=== PATIENT | male | born 1985 | race Hispanic/Latino ===

== ENCOUNTER 2019-04-24 07:21 | Inpatient (IN) ==
[2019-04-24] MEDS ORDERED: NS 1,000 ML IV ONE (07:27)
[2019-04-24] MEDS ORDERED: ANTIVERT PO ONE (07:27)
[2019-04-24] MEDS ORDERED: ZOFRAN IV ONE (07:28)
--- NOTE | 2019-04-24 07:40 | EKG Report ---
Test Performed on : 04/24/2019 07:41:09 AM Test Reason : Stroke like symptoms Blood Pressure : / mmHG Vent. Rate : 104 BPM Atrial Rate : 104 BPM P-R Int : 126 ms QRS Dur : 082 ms QT Int : 364 ms P-R-T Axes : 036 -27 079 degrees QTc Int : 478 ms Sinus tachycardia. Septal infarct , age undetermined Abnormal ECG No previous ECGs available Unconfirmed Result
--- NOTE | 2019-04-24 07:43 | Diag Imaging Result Doc PS360 ---
EXAM: CHEST-PORTABLE INDICATION: syncope. Chest pain TECHNIQUE: One view COMPARISON: None. FINDINGS: There are diffuse interstitial and airspace opacities bilaterally that probably represent pulmonary edema. There are bilateral small pleural effusions. No pneumothorax is identified. There is pulmonary venous congestion and cardiomegaly. IMPRESSION: Bilateral interstitial and airspace opacities likely representing pulmonary edema. Electronically signed by Benitez Maier 04/24/2019 7:41 AM
[2019-04-24] MEDS ORDERED: MORPHINE IV ONE ×2 (08:02→10:45)
[2019-04-24] MEDS ORDERED: TORADOL IV ONE (08:02)
[2019-04-24 08:18] LABS: BASO# 0.01 X1000 (0.0-0.2); BASO% 0.1 % (0.0-0.8); HEMATOCRIT 38.4 % (42.0-52.0); HEMOGLOBIN 12.7 g/dL (14.0-18.0); IMM GRAN# 0.02 X1000 (0.0-0.04); IMM GRAN% 0.3 % (0.0-0.5); LYMPH# 0.52 X1000 (1.2-3.4); LYMPH% 7.5 % (20.5-51.1); MCH 28.5 PG (27-31); MCHC 33.1 g/dL (33-37); MCV 86.1 FL (81-99); MONO# 0.37 X1000 (0.11-0.59); MONO% 5.3 % (1.7-9.3); MPV 10.8 FL (7.4-10.4); NEUT% 86.8 % (42.2-75.2); PLT 346 X1000 (130-400); RBC 4.46 XMIL (4.7-6.1); RDW 13.3 % (11.5-14.5); WBC 6.92 X1000 (4.8-10.8)
[2019-04-24 08:20] LABS: INR 0.91; PROTIME 12.3 Seconds (11.0-16.0)
[2019-04-24 08:22] LABS: PTT 31.4 Seconds (22.3-41.8)
--- NOTE | 2019-04-24 08:39 | Diag Imaging Result Doc PS360 ---
CT HEAD/C-SPINE W/O CONTRAST - 04/24/2019 INDICATION: syncope COMPARISON: None FINDINGS: Head CT: The ventricles and sulci are normal in size and contour. No intracranial mass or hemorrhage. The skull is intact. The sinuses, mastoids, and middle ears are clear. Cervical spine: Alignment is anatomic. Vertebral body heights and intervertebral disc spaces are preserved. Neural foramen are patent. Soft tissues are clear. IMPRESSION: Negative exam. This exam was performed using automated exposure control, adjustment of mA or kV according to patient size, and/or use of iterative reconstruction technique Electronically signed by Tico Birch 04/24/2019 8:36 AM
--- NOTE | 2019-04-24 08:40 | Diag Imaging Result Doc PS360 ---
CT MAXILLOFACIAL(SINUS) W/O CO - 04/24/2019 INDICATION: fall, facial injury TECHNIQUE: COMPARISON: None FINDINGS: The facial bones are intact and normally mineralized. Soft tissues are clear. There are some mucosal retention cyst in the left maxillary sinus. No sinusitis. IMPRESSION: Negative exam. Electronically signed by Tico Birch 04/24/2019 8:38 AM
[2019-04-24 09:11] LABS: AGAP 10; ALB/GLOB RATIO 1.1; ALBUMIN 2.5 g/dL (3.5-5.0); ALKALINE PHOSPHATASE 151 U/L (32-122); BUN 39 mg/dL (8-22); CALCIUM 8.2 mg/dL (8.8-10.2); CHLORIDE 103 mmol/L (98-107); COSMO 283; CREATININE 1.8 mg/dL (0.7-1.2); ESTIMATED GFR 43; GOT 35 U/L (10-34); GPT 27 U/L (10-44); POTASSIUM 4.4 mmol/L (3.5-5.1); SODIUM 139 mmol/L (136-145); TCO2 26 mmol/L (25-35); TOTAL BILIRUBIN 0.23 mg/dL (0.20-1.00); TOTAL PROTEIN 4.7 g/dL (6.3-8.3)
[2019-04-24 09:23] LABS: ACETONE SERUM NEGATIVE (NEGATIVE); CK PROFILE 299 U/L (24-204)
[2019-04-24 09:37] LABS: GLUCOSE 36 mg/dL (70-104)
[2019-04-24 09:40] LABS: CK INDEX 6.6 (0.0-2.5); CK-MB 19.74 ng/mL (0.0-5.0)
[2019-04-24] MEDS ORDERED: D50W SYRINGE IV ONE ×3 (09:55→12:32)
[2019-04-24] MEDS ORDERED: LASIX IV ONE (10:45)
[2019-04-24] MEDS ORDERED: ASPIRIN PO ONE (10:45)
[2019-04-24] MEDS ORDERED: NITROGLYCERIN TOP ONE (10:45)
[2019-04-24 10:58] LABS: URINE SOURCE CLEAN CATCH
[2019-04-24 11:04] LABS: BILIRUBIN URINE NEGATIVE (NEGATIVE); BLOOD URINE SMALL (NEGATIVE); COLOR STRAW; GLUCOSE URINE NEGATIVE (NEGATIVE); KETONE URINE NEGATIVE (NEGATIVE); LEUKOCYTES URINE NEGATIVE (NEGATIVE); NITRITE URINE NEGATIVE (NEGATIVE); PROTEIN URINE 300 mg/dL (NEGATIVE); SP GRAVITY URINE 1.009; TURBIDITY URINE CLEAR (CLEAR); UR EPITHELIAL CELLS <10 /HPF (<10); URINE BACTERIA NEGATIVE /HPF; URINE RBC TNTC /HPF (<10); URINE WBC <10 /HPF (<10); UROBILINOGEN URINE NORMAL (NORMAL)
[2019-04-24] MEDS ORDERED: D5 NS 1,000 ML IV ONE (11:05)
[2019-04-24 11:31] LABS: UR AMPHETAMINES MT NONE DETECTED (NONE DETECT); UR BARBITUATES MT NONE DETECTED (NONE DETECT); UR BENZODIAZ MT NONE DETECTED (NONE DETECT); UR CANNABIS MEDTOX NONE DETECTED (NONE DETECT); UR COCAINE MT NONE DETECTED (NONE DETECT); UR METHADONE MEDTOX NONE DETECTED (NONE DETECT); UR OPIATES MT NONE DETECTED (NONE DETECT); UR OXYCODONE MEDTOX NONE DETECTED (NONE DETECT); UR PCP MEDTOX NONE DETECTED (NONE DETECT)
--- NOTE | 2019-04-24 12:07 | PROVIDER DOCUMENTATION ---
This chart was entered by Ekaterina Sinclair Scribe, acting as scribe for Jose Corona MD. HPI-Syncope/Dizziness - General Chief Complaint: Syncope Stated Complaint: cp Time Seen by Provider: 04/24/19 07:23 Source: patient Allergies/Adverse Reactions: Patient Allergies Allergy/AdvReac Type Severity Reaction Status Date / Time No Known Allergies Allergy Verified 04/24/19 08:04 Home Medications: Home Medication List Medication Instructions Recorded Confirmed Last Taken Type NK [No Home Medications] 04/24/19 04/24/19 Unknown History - History of Present Illness-Syncope/Dizzy Nature of Presenting Problem: Patient is a 34 year old male who presents to the ED via EMS after having a syncopal episode. States having a syncopal episode this morning. Reports having chest pain, dizziness, and weakness intermittently for the last week. Prior Episodes: reports: single episode today Onset/Duration: reports: this morning Timing: reports: improving Symptoms prior to episode: reports: chest pain, other (dizziness and weakness) Context: reports: lost consciousness Loss of Consciousness: unsure Recently Seen Here or By Another Healthcare Provider: Yes Review of Systems - Adult - REVIEW OF SYSTEMS - ADULT Constitutional: reports: no symptoms reported. denies: chills, fever Eyes: reports: no symptoms reported Ears, Nose, Mouth & Throat: reports: no symptoms reported Cardiovascular: reports: chest pain. denies: irregular heart rate, palpitations Respiratory: reports: no symptoms reported Gastrointestinal: reports: no symptoms reported Genitourinary: reports: no symptoms reported Musculoskeletal: reports: see HPI, muscle weakness. denies: back pain, neck pain Integumentary: reports: no symptoms reported Neurological: reports: see HPI, dizziness/vertigo (dizziness), syncope. denies: headache/migraines Psychiatric: reports: no symptoms reported Endocrine: reports: no symptoms reported Hematologic/Lymphatic: reports: no symptoms reported Allergic/Immunologic: reports: no symptoms reported All Other Systems: Reviewed and Negative Past History - Adult - PAST MEDICAL HISTORY-ADULT Review of Records: reports: Old Records Reviewed, Nursing Assessment Review, Medications Reviewed, Social history reviewed & non-contributory. Major Childhood Illnesses: reports: denies history Cardiovascular: reports: denies history Respiratory: reports: denies history Gastrointestinal: reports: denies history Obstetrical/Gynecological: reports: denies history Genitourinary: reports: denies history Musculoskeletal: reports: denies history Neurological: reports: denies history Endocrine/Immune: reports: Diabetes Other Conditions: reports: denies history - PRIOR SURGERIES/PROCEDURES Surgical/Procedure History: reports: reviewed, not pertinent - IMMUNIZATION STATUS Childhood Immunizations: See Nurse Assessment Flu Vaccine: See Nurse Assessment - FAMILY HISTORY Family History: reviewed, not pertinent - SOCIAL HISTORY Smoking: denies Substance Use: denies Physical Exam-General - PHYSICAL EXAM-ADULT Initial Vital Signs Reviewed: Yes - CONSTITUTIONAL General Appearance: alert, no apparent distress, anxious. negative: lethargic - HEAD, EARS, NOSE, MOUTH & THROAT HENMT: moist mucous membranes, other (laceration to bridge of nose). negative: angioedema - RESPIRATORY Respiratory: chest non-tender, lungs clear, normal breath sounds. negative: rales, stridor, wheezing - CARDIOVASCULAR Cardiovascular: normal peripheral pulses, regular rate, rhythm. negative: tachycardia - GASTROINTESTINAL (ABDOMEN) Abdominal Exam: normal bowel sounds, non tender, soft. negative: guarding, r ebound - MUSCULOSKELETAL Extremity: normal inspection. negative: deformity, erythema - SKIN Integumentary: normal color, diaphoresis, laceration(s) (bridge of nose). nega tive: pallor - NEUROLOGIC Neurologic: grossly normal. negative: aphasia, facial droop - PSYCHIATRIC Psych/Mental Status: anxious. negative: paranoid, tearful Progress - PLAN OF CARE/RESULTS Progress/Plan/Lab Results: Vital Signs - 8 hr 04/24/19 07:34 04/24/19 08:53 04/24/19 11:03 Temperature 97.6 F 98 F Pulse Rate 105 H 96 H 105 H Respiratory Rate 16 16 20 Blood Pressure 175/124 170/119 183/121 O2 Sat by Pulse Oximetry 100 98 98 04/24/19 08:00 Influenza Screen - Final Nasopharyngeal Laboratory Results - last 24 hr 04/24/19 04/24/19 04/24/19 07:50 07:50 07:50 WBC 6.92 RBC 4.46 L Hgb 12.7 L Hct 38.4 L MCV 86.1 MCH 28.5 MCHC 33.1 RDW Std Deviation 13.3 Plt Count 346 MPV 10.8 H Immature Gran % (Auto) 0.3 Neut % (Auto) 86.8 H Lymph % (Auto) 7.5 L Gr[place]gs % (Auto) 5.3 Eos % (Auto) 0.0 Baso % (Auto) 0.1 Immature Gran # (Auto) 0.02 Neut # (Auto) 6.00 Lymph # (Auto) 0.52 L [place]gs # (Auto) 0.37 Eos # (Auto) 0.00 Baso # (Auto) 0.01 PT 12.3 INR 0.91 PTT (Actin FS) 31.4 Sodium Potassium Chloride Carbon Dioxide Anion Gap BUN Creatinine Estimated GFR/1.73 m2 BUN/Creatinine Ratio Glucose POC Glucose Calculated Osmolality Calcium Total Bilirubin AST ALT Alkaline Phosphatase Creatine Kinase Creatine Kinase Index CK-MB (CK-2) Troponin T Gul-W-Eiymdcvdijb Pept Total Protein Albumin Globulin Albumin/Globulin Ratio Plasma Lactate 1.2 Urine Source Urine Color Urine Turbidity Urine pH Ur Specific Brinklow Urine Protein Ur Glucose (Stick) Ur Ketones (Stick) Urine Blood Urine Nitrite Urine Bilirubin Urobilinogen Dipstick Urine Leukocytes Urine WBC (Auto) Urine RBC (Auto) U Epithel Cells (Auto) Urine Bacteria (Auto) Urine Opiates Screen Ur Oxycodone Screen Urine Methadone Screen Ur Barbiturates Screen Ur Phencyclidine Scrn Ur Amphetamines Screen U Benzodiazepines Scrn Urine Cocaine Screen U Cannabinoids Screen Acetone Level 04/24/19 04/24/19 04/24/19 08:36 08:38 08:48 WBC RBC Hgb Hct MCV MCH MCHC RDW Std Deviation Plt Count MPV Immature Gran % (Auto) Neut % (Auto) Lymph % (Auto) Griggs % (Auto) Eos % (Auto) Baso % (Auto) Immature Gran # (Auto) Neut # (Auto) Lymph # (Auto) Griggs # (Auto) Eos # (Auto) Baso # (Auto) PT INR PTT (Actin FS) Sodium 139 Potassium 4.4 Chloride 103 Carbon Dioxide 26 Anion Gap 10 BUN 39 H Creatinine 1.8 H Estimated GFR/1.73 m2 43 BUN/Creatinine Ratio 22 Glucose 36 L* POC Glucose 34 L 31 L Calculated Osmolality 283 Calcium 8.2 L Total Bilirubin 0.23 AST 35 H ALT 27 Alkaline Phosphatase 151 H Creatine Kinase 299 H Creatine Kinase Index 6.6 H CK-MB (CK-2) 19.74 H Troponin T Qlh-C-Qhdthcdisku Pept Total Protein 4.7 L Albumin 2.5 L Globulin 2.2 Albumin/Globulin Ratio 1.1 Plasma Lactate Urine Source Urine Color Urine Turbidity Urine pH Ur Specific Brinklow Urine Protein Ur Glucose (Stick) Ur Ketones (Stick) Urine Blood Urine Nitrite Urine Bilirubin Urobilinogen Dipstick Urine Leukocytes Urine WBC (Auto) Urine RBC (Auto) U Epithel Cells (Auto) Urine Bacteria (Auto) Urine Opiates Screen Ur Oxycodone Screen Urine Methadone Screen Ur Barbiturates Screen Ur Phencyclidine Scrn Ur Amphetamines Screen U Benzodiazepines Scrn Urine Cocaine Screen U Cannabinoids Screen Acetone Level NEGATIVE 04/24/19 04/24/19 04/24/19 08:48 08:48 09:48 WBC RBC Hgb Hct MCV MCH MCHC RDW Std Deviation Plt Count MPV Immature Gran % (Auto) Neut % (Auto) Lymph % (Auto) Griggs % (Auto) Eos % (Auto) Baso % (Auto) Immature Gran # (Auto) Neut # (Auto) Lymph # (Auto) Griggs # (Auto) Eos # (Auto) Baso # (Auto) PT INR PTT (Actin FS) Sodium Potassium Chloride Carbon Dioxide Anion Gap BUN Creatinine Estimated GFR/1.73 m2 BUN/Creatinine Ratio Glucose POC Glucose 35 L Calculated Osmolality Calcium Total Bilirubin AST ALT Alkaline Phosphatase Creatine Kinase Creatine Kinase Index CK-MB (CK-2) Troponin T 0.038 Dfu-N-Yfydabqtkpu Pept 04357 H Total Protein Albumin Globulin Albumin/Globulin Ratio Plasma Lactate Urine Source Urine Color Urine Turbidity Urine pH Ur Specific [place]ink[place] Urine Protein Ur Glucose (Stick) Ur Ketones (Stick) Urine Blood Urine Nitrite Urine Bilirubin Urobilinogen Dipstick Urine Leukocytes Urine WBC (Auto) Urine RBC (Auto) U Epithel Cells (Auto) Urine Bacteria (Auto) Urine Opiates Screen Ur Oxycodone Screen Urine Methadone Screen Ur Barbiturates Screen Ur Phencyclidine Scrn Ur Amphetamines Screen U Benzodiazepines Scrn Urine Cocaine Screen U Cannabinoids Screen Acetone Level 04/24/19 04/24/19 04/24/19 10:10 10:10 11:28 WBC RBC Hgb Hct MCV MCH MCHC RDW Std Deviation Plt Count MPV Immature Gran % (Auto) Neut % (Auto) Lymph % (Auto) Griggs % (Auto) Eos % (Auto) Baso % (Auto) Immature Gran # (Auto) Neut # (Auto) Lymph # (Auto) Griggs # (Auto) Eos # (Auto) Baso # (Auto) PT INR PTT (Actin FS) Sodium Potassium Chloride Carbon Dioxide Anion Gap BUN Creatinine Estimated GFR/1.73 m2 BUN/Creatinine Ratio Glucose POC Glucose Calculated Osmolality Calcium Total Bilirubin AST ALT Alkaline Phosphatase Creatine Kinase Creatine Kinase Index CK-MB (CK-2) Troponin T 0.035 Qkn-U-Kfydwzoovmb Pept Total Protein Albumin Globulin Albumin/Globulin Ratio Plasma Lactate Urine Source CLEAN CATCH Urine Color STRAW Urine Turbidity CLEAR Urine pH 7.0 Ur Specific Brinklow 1.009 Urine Protein 300 A Ur Glucose (Stick) NEGATIVE Ur Ketones (Stick) NEGATIVE Urine Blood SMALL A Urine Nitrite NEGATIVE Urine Bilirubin NEGATIVE Urobilinogen Dipstick NORMAL Urine Leukocytes NEGATIVE Urine WBC (Auto) <10 Urine RBC (Auto) TNTC A U Epithel Cells (Auto) <10 Urine Bacteria (Auto) NEGATIVE Urine Opiates Screen NONE DETECTED Ur Oxycodone Screen NONE DETECTED Urine Methadone Screen NONE DETECTED Ur Barbiturates Screen NONE DETECTED Ur Phencyclidine Scrn NONE DETECTED Ur Amphetamines Screen NONE DETECTED U Benzodiazepines Scrn NONE DETECTED Urine Cocaine Screen NONE DETECTED U Cannabinoids Screen NONE DETECTED Acetone Level Orders Category Date Time Status Cardiac Monitoring DIRECTED Care 04/24/19 07:24 Active Finger Stick Blood Sugar (ED) DIRECTED Care 04/24/19 07:24 Active Finger Stick Blood Sugar (ED) DIRECTED Care 04/24/19 10:44 Completed Nursing- Obtain EKG once Care 04/24/19 10:42 Active Oxygen Therapy- ED Nursing DIRECTED Care 04/24/19 07:24 Active PO Fluid Challenge DIRECTED Care 04/24/19 07:29 Active Saline Loc NOW Care 04/24/19 07:24 Active Diabetic Diet Diet 04/24/19 09:56 Completed Diabetic Diet Diet 04/24/19 09:59 Active CHEST-PORTABLE [RAD] Stat Exams 04/24/19 07:[address] HEAD/C-SPINE W/O CONTRAST [CT] Stat Exams 04/24/19 07:[address] MAXILLOFACIAL(SINUS) W/O CO [CT] Stat Exams 04/24/19 07:26 Completed ACETONE SERUM [CHEM] Stat Lab 04/24/19 08:48 Completed BLOOD CULTURE [BLDCUL] Stat Lab 04/24/19 08:38 Results CBC WITH ELECTRONIC DIFF [HEME] Stat Lab 04/24/19 07:50 Completed CK PROFILE [SP CHEM] Stat Lab 04/24/19 08:48 Completed COMPREHENSIVE METABOLIC PANEL [CHEM] Stat Lab 04/24/19 08:48 Completed INFLUENZA SCREEN A/B Stat Lab 04/24/19 08:00 Completed LACTATE, PLASMA [CHEM] Stat Lab 04/24/19 07:50 Completed PRO B-NATRIURETIC PEPTIDE Stat Lab 04/24/19 08:48 Completed PROTIME WITH INR [COAG] Stat Lab 04/24/19 07:50 Completed PTT [COAG] Stat Lab 04/24/19 07:50 Completed TROPONIN T Stat Lab 04/24/19 08:48 Completed TROPONIN T Stat Lab 04/24/19 11:28 Completed URINALYSIS W/POSS RFLX CULT [URINALYSIS] Stat Lab 04/24/19 10:10 Completed URINE DRUG SCREEN MEDTOX Stat Lab 04/24/19 10:10 Completed 0.9% Sodium Chloride Inj [Ns] 1,000 ml Med 04/24/19 07:27 Discontinued IV 999 mls/hr Aspirin Med 04/24/19 10:45 Discontinued 325 mg PO NOW ONE Dextrose 5%-0.9% NaCl Inj [D5 Ns] 1,000 ml Med 04/24/19 11:05 Active IV 50 mls/hr Dextrose 50% Syringe [D50w Syringe] Med 04/24/19 09:55 Discontinued 50 ml IV NOW ONE Dextrose 50% Syringe [D50w Syringe] Med 04/24/19 09:56 Discontinued 50 ml IV NOW ONE Furosemide [Lasix] Med 04/24/19 10:45 Discontinued 80 mg IV NOW ONE Ketorolac [Toradol] Med 04/24/19 08:02 Discontinued 30 mg IV NOW ONE Meclizine [Antivert] Med 04/24/19 07:27 Discontinued 50 mg PO NOW ONE Morphine Med 04/24/19 08:02 Discontinued 2 mg IV NOW ONE Morphine Med 04/24/19 10:45 Discontinued 2 mg IV NOW ONE Nitroglycerin Med 04/24/19 10:45 Discontinued 1 inch TOP NOW ONE Ondansetron [Zofran] Med 04/24/19 07:28 Discontinued 4 mg IV NOW ONE EKG [EKG] Stat Ther 04/24/19 07:24 Draft EKG [EKG] Stat Ther 04/24/19 10:42 Ordered Echo Spec/Color Doppler Routine Ther 04/24/19 10:58 Ordered Transfer/Admit Order [TRANSFER] Routine Transfer 04/24/19 11:05 Ordered Result Diagrams: 04/24/19 07:50 04/24/19 08:48 - REASSESSMENT Reassessment #1 Time Reassessed: 12:05 Status: improving (better after multiple interventions for hypoglycemia and treatment for severre CHF) - EKG 1 Time of EKG reading by physician:: 07:41 EKG Read and Signed by:: Jose Corona EKG Interpretation (*Must complete 3 of following elements*): Abnormal Rate: 104 Rhythm: sinus tachycardia [place]: normal [place] Interval: normal Comments: septal infarct, age undetermined - XRAY 1 XRAY Study: Chest Impression: See EMR Report ( EXAM: CHEST-PORTABLE INDICATION: syncope. Chest pain TECHNIQUE: One view COMPARISON: None. FINDINGS: There are diffuse interstitial and airspace opacities bilaterally that probably represent pulmonary edema. There are bilateral small pleural effusions. No pneumothorax is identified. There is pulmonary venous congestion and cardiomegaly. IMPRESSION: Bilateral interstitial and airspace opacities likely representing pulmonary edema. Electronically signed by Benitez Maier 04/24/2019 7:41 AM 04/24/19 0741 Interpreting Physician: Benitez Maier MD Dictated Date/Time: 04/24/19 0740 cc: Jose Corona MD;) - CT/MRI 1 CT Study: Cervical Spine, Head Impression: See EMR Report ( CT HEAD/C-SPINE W/O CONTRAST - 04/24/2019 INDICATION: syncope COMPARISON: None FINDINGS: Head CT: The ventricles and sulci are normal in size and contour. No intracranial mass or hemorrhage. The skull is intact. The sinuses, mastoids, and middle ears are clear. Cervical spine: Alignment is anatomic. Vertebral body heights and intervertebral disc spaces are preserved. Neural foramen are patent. Soft tissues are clear. IMPRESSION: Negative exam. This exam was performed using automated exposure control, adjustment of mA or kV according to patient size, and/or use of iterative reconstruction technique Electronically signed by Tico Birch 04/24/2019 8:36 AM 04/24/19 0836 Interpreting Physician: Tico Birch MD Dictated Date/Time: 04/24/19 0871 cc: Jose Corona MD;) 2 CT Study: Sinuses Impression: See EMR Report ( CT MAXILLOFACIAL(SINUS) W/O CO - 04/24/2019 I NDICATION: fall, facial injury TECHNIQUE: COMPARISON: None FINDINGS: The facial bones are intact and normally mineralized. Soft tissues are clear. There are some mucosal retention cyst in the left maxillary sinus. No sinusitis. IMPRESSION: Negative exam. Electronically signed by Tico Birch 04/24/2019 8:38 AM 04/24/19 0838 Interpreting Physician: Tico Birch MD Dictated Date/Time: 04/24/19 0836 cc: Jose Corona MD;) - CONSULTS/PCP/HOSPITALIST Notification #1 *Consult/PCP/Hospitalist*: EMILE Gregory for Hospitalist Time Discussed: 10:50 Reason/Comments: Dr. Corona consulted with Bri about patient. Consult Disposition: Will see in ED, Admit Departure - Departure Date of Disposition Decision: 04/24/19 Time of Disposition Decision: 10:50 DIAGNOSIS: Substernal precordial chest pain, Syncope and collapse, Hypoglycemic episode in patient with diabetes mellitus, New onset of congestive heart failure Pulmonary edema Qualifiers: Chronicity: acute Qualified Code(s): J81.0 - Acute pulmonary edema Disposition: ADMITTED INPATIENT 09 Certified Medical Emergency: Emergent Condition: Serious Referrals and Follow-Ups: None,PCP [Primary Care Provider] - - Critical Care Note This patient required my direct & personal management of CC.: Yes Total Time (mins): 50 Critical Care Statement: This patient required my direct personal management to treat or rule out processes, the absence of which, could potentiallly result in sudden, clinically significant life or limb threatening deterioration. Attestation - Physician/ MANSI Attestation Patient care was provided by Advanced Practice Provider:: No The physician spent face to face time with patient:: Yes Advanced Practice Provider documentation review:: Supervising physician onsite and consulted in the evaluation and care of this patient. The physician did have a face to face encounter with the patient. This chart was documented by the indicated scribe, (Ekaterina Sinclair Scribe) and accurately reflects the services I performed and decisions made by me, Jose Corona MD, as attested by the provider's signature.
[2019-04-24] MEDS ORDERED: D10W 1,000 ML IV SCH (15:15)
[2019-04-24] MEDS ORDERED: GLUCAGON SUBQ ONE (15:49)
[2019-04-24] MEDS ORDERED: COREG PO ONE (15:55)
[2019-04-24] MEDS ORDERED: COZAAR PO ONE (15:55)
--- NOTE | 2019-04-24 15:56 | ECHO REPORT ---
ORDER DATE: 04/24/2019 INDICATIONS: CHF. FINDINGS: 1. Right atrium appears normal in size. 2. Mild tricuspid regurgitation. 3. Normal RV size and systolic function. 4. Trace pulmonic insufficiency. 5. The left atrium is moderately enlarged with a volume index of 38. 6. No mitral valve prolapse. Mild mitral regurgitation. No mitral stenosis. 7. The left ventricle appears to be somewhat dilated with an end-diastolic dimension of 5.1. There is mild left ventricular hypertrophy with interventricular septal wall thickness 1.3 cm. Severe reduction in LV systolic function with an estimated EF in the 15 to 20 percent range. There is severe global hypokinesis. 8. Aortic valve opens well. No evidence of stenosis or insufficiency. 9. Aorta appears normal in visualized segments. 10. There is a small circumferential pericardial effusion with no clear evidence of tamponade-type physiology. Pleural effusion is noted as well. cc: Sai Roman MD
[2019-04-24] MEDS ORDERED: STERILE WATER INJ. ONE (15:59)
--- NOTE | 2019-04-24 16:12 | Diag Imaging Result Doc PS360 ---
CT THORAX W/O CONTRAST - 04/24/2019 INDICATION: SOB with bilateral interstitial infiltrates COMPARISON: None FINDINGS: There is cardiomegaly with a pronounced pericardial effusion. There is moderate body wall edema. There is a small right and moderate left pleural effusion. There is some hazy interstitial pulmonary edema diffusely and centrally bilaterally. Upper abdominal images appear normal. There are numerous old healing rib deformities on the left side. These are clearly chronic. IMPRESSION: 1. Significant pericardial effusion. 2. Small right and moderate left pleural effusions of simple fluid density. 3. Significant central infiltrates compatible with pulmonary edema. 4. Healing left-sided rib fractures. This exam was performed using automated exposure control, adjustment of mA or kV according to patient size, and/or use of iterative reconstruction technique Electronically signed by Tico Birch 04/24/2019 4:09 PM
[2019-04-24] MEDS: LASIX IV SCH ×2 (16:29→23:58)
[2019-04-24] MEDS: MAXIPIME 1 GM in NS 50 ML IV SCH (16:29)
[2019-04-24 16:31] LABS: HEMOGLOBIN A1C 7.2 % (4.8-6.0)
[2019-04-24] MEDS: ZYVOX PO SCH ×2 (16:46→17:50)
[2019-04-24 17:07] LABS: IRON SATURATION 17 %; TIBC 214 ug/dL; TOTAL IRON 36 ug/dL (53-167); UNBOUND IRON 178 ug/dL (112-346)
[2019-04-24 17:17] LABS: ALB/GLOB RATIO 1.3; ALBUMIN 2.5 g/dL (3.5-5.0); DIRECT BILIRUBIN 0.1 mg/dL (0.00-0.20); TOTAL BILIRUBIN 0.21 mg/dL (0.20-1.00); TOTAL PROTEIN 4.4 g/dL (6.3-8.3)
[2019-04-24 17:24] LABS: CK INDEX 6.1 (0.0-2.5); CK-MB 15.35 ng/mL (0.0-5.0)
[2019-04-24 17:29] LABS: PREALBUMIN 22.6 mg/dL (20-40)
[2019-04-24] MEDS ORDERED: LASIX IV SCH (18:00)
--- NOTE | 2019-04-24 18:39 | HISTORY AND PHYSICAL ---
PRESENTING COMPLAINT: Cough, shortness of breath. HISTORY OF PRESENTING COMPLAINT: Mr. Hernandez is a 34-year-old [facility] gentleman who has been living in the [facility] for a long time now. He is known to be diabetic, which was diagnosed in 2005, but was off medication because he was told that it was very well under control, so he was not on any pharmacological therapy until just about a week ago. He has been started back on oral hypoglycemic agent that he does not remember. He is also hypertensive. Mr. Hernandez came this time to the emergency room because of shortness of breath. He said for the past 2 weeks he was having some cough which has been persistent, is nonproductive without any chest pain, but it is associated with shortness of breath which has been progressively getting worse to where every night he has to wake up multiple times in the middle of the night to catch his breath. He has also been sleeping more than 2 pillows lately because of shortness of breath. Alongside with that. He has also witnessed that his lower extremity and his genitalia has been getting swollen. He went to [facility] [place] and he was given some blood pressure medications, some medication for the cough and diabetes medication about a week ago. However, he said even taking those medications he continued to be symptomatic. Last night, he became so short of breath that he thought he was going to suffocate and . Apparently, he tried to sit up at the edge of his bed. He fell. He was unable to help himself up. Another friend who works at night came and saw him on the floor and tried to help him to the bed, but realizing that Mr. Hernandez did not improve he called EMS and patient was brought to the emergency room. Here in the emergency room. Initially, his vitals, blood pressure was high 175/124. His pulse of 105. Respiration 16. Temperature 97.6 degree. Patient was saturating 100% on room air. He was also found to be extremely hypoglycemic, so we were consulted to evaluate and admit. PAST MEDICAL HISTORY: Previously diagnosed of diabetes mellitus in 2005, but was told was cleared and under control, so he was not on any medication until just about 2 weeks about 1 week ago. Hypertension. 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 There is also a skin and soft tissue surgery on the right upper shoulder. FAMILY HISTORY: Unremarkable. The patient denies any diabetes or hypertension in his family. SOCIAL HISTORY: Mr. Hernandez is a 34-year-old [facility] gentleman. He said he used to smoke about 15 years ago, but since then he has not smoked. He denies alcohol use. He said he is christian man. He is not . REVIEW OF SYSTEMS: Mr. Hernandez refers that he has a fever and chills and that 1 week ago when he went to the Urgent Care, he was told that he had fever. He denies any chest pain. He denies any urinary symptoms. He denies any diarrhea or abdominal pain. PHYSICAL EXAMINATION: VITAL SIGNS: Blood pressure is 183/121, pulse of 105, respirations 20, temperature 98 degrees. GENERAL: Mr. Hernandez is a 34-year-old gentleman. He is in bed. He does not seems to be in any cardiopulmonary distress. Mucosa is pink and moist. Anicteric. Acyanotic. He looks remarkably swollen. NECK: Supple. There is positive JVD, but no carotid bruit. The trachea is midline. There is no thyromegaly. Head is normocephalic and atraumatic. There are mild bruises on the nasal bridge. CHEST: Air entry is bilaterally reduced. There is diffuse crackles in both inspiration and expiration. There is no accessory muscle use. CARDIOVASCULAR: Regular rate and rhythm. There was an S3 positive but no S4. No murmurs. The apex beat is at 5th intercostal space midclavicular line. GASTROINTESTINAL: Abdomen is soft. It is distended but nontender. Bowel sounds present. There is edema on the lateral aspect of the abdominal wall. EXTREMITIES: About 3+ pedal edema extending almost to the proximal thighs. CENTRAL NERVOUS SYSTEM: Patient is awake, alert, oriented. He is very fluent in his gambell language, Lao. He does not speak any Welsh, but moves all his extremities upon command and he does not have any focal neurological deficit. Cranial nerves 2-12 have been grossly examined and they are unremarkable. LABORATORY DATA: WBC is 6.92, hemoglobin is 12.7, platelet count of 347,000. Chemistry is also reviewed. Creatinine was about 1.8. Glucose on admission was 36. The proB 29,565. Albumin is remarkably low. Total protein is also low. IMAGING STUDIES: A chest x-ray which was done initially suggests bilateral interstitial airspace opacities likely representing pulmonary edema. Echocardiogram shows an ejection fraction of 15-20 percent. There is severe global hypokinesis. Right ventricle seems to be normal in systolic function. There is a small pericardial circumferential effusion. No clear evidence of tamponade. ASSESSMENT: Mr. Hernandez is a 34-year-old gentleman who has been having shortness of breath, cough for the past 2 weeks associated with some fever and chills, comes in with symptoms of overt fluid overload and hypoglycemia. ASSESSMENT: 1. Anasarca secondary to systolic heart failure. The patient has been started on diuretic therapy. 2. Dyspnea secondary to pulmonary edema with possible superimposed pneumonia. We will get a CT scan of the lung to have a better clear anatomy of the lungs. The patient did have fever and chills, so I think it is reasonable to cover him with antibiotics until we have the cultures and the CT scan result. 3. Severe hypertension. The patient's blood pressures have been remarkably high. I have started him on losartan and carvedilol, we will continue to titrate. 4. Systolic congestive heart failure. Ejection fraction is reported to be 15 to 20 percent with severe global hypokinesis. Unsure the etiology behind this. For now, we are going to continue with the diuresis and get Cardiology to evaluate Mr. Hernandez as well. I think once he becomes euvolemic, he would need to be investigated for coronary artery disease. 5. Diabetes mellitus. According to Mr. Hernandez, he was started on some oral hypoglycemic agent about 1 week ago. Unsure of what that was. We are going to get his A1c to have an idea what is going on. He is currently hypoglycemic anyway, so we will not will not start him on anything yet for now. 6. Hypoglycemic, most likely due to oral hypoglycemic agent. The patient has been given multiple doses of D50. At one point, he was on D10. We are going to give him a glucagon shot for now and take him off the D10 infusion since he is remarkably fluid overloaded at this point. 7. Normocytic anemia. We will do the iron studies to rule that out. 8. Hypoalbuminemia probably due to poor nutritional status. However, the patient's urinalysis also seems to suggest urine protein. We might want to do a 24-hour urine collection to have a better idea and rule out possible nephrotic syndrome from longstanding diabetes mellitus. 9. Renal failure. We will continue to follow this. We will also avoid any nephrotoxin. The patient will get 24 hour urine collection to know if there is any longstanding renal pathology. Critical time spent is 36 minutes. Mr. Hernandez will be admitted to [facility]. cc: Alex Hillman MD [facility]
[2019-04-24] MEDS: HEPARIN SUBQ SCH (20:28)
[2019-04-24] MEDS: COREG PO SCH (20:28)
[2019-04-24 20:52] LABS: CK INDEX 6.1 (0.0-2.5); CK-MB 13.64 ng/mL (0.0-5.0)
[2019-04-24] MEDS: D50W SYRINGE IV PRN (21:01)
[2019-04-25] MEDS: D50W SYRINGE IV PRN ×2 (00:41→04:42)
[2019-04-25] MEDS: MAXIPIME 1 GM in NS 50 ML IV SCH ×2 (03:22→17:35)
[2019-04-25] MEDS: ZYVOX PO SCH ×2 (05:36→17:36)
[2019-04-25] MEDS: SANDOSTATIN SUBQ SCH ×3 (06:06→21:04)
--- NOTE | 2019-04-25 07:29 | Diag Imaging Result Doc PS360 ---
CHEST-PORTABLE - 04/25/2019 INDICATION: chf COMPARISON: 04/24/2019 FINDINGS: Stable cardiomegaly. There has been overall improvement in the extensive interstitial pulmonary edema. Decrease in the small bilateral pleural effusions. IMPRESSION: Significant improvement from prior. Electronically signed by Tico Birch 04/25/2019 7:27 AM
[2019-04-25 07:34] LABS: CALCIUM 7.6 mg/dL (8.8-10.2); CREATININE 2.5 mg/dL (0.7-1.2); MAGNESIUM 2.1 mg/dL (1.5-2.7)
--- NOTE | 2019-04-25 07:34 | EKG Report ---
Test Performed on : 04/25/2019 06:38:49 AM Test Reason : CHF Blood Pressure : / mmHG Vent. Rate : 084 BPM Atrial Rate : 084 BPM P-R Int : 146 ms QRS Dur : 086 ms QT Int : 404 ms P-R-T Axes : 041 -30 167 degrees QTc Int : 477 ms Normal sinus rhythm. Left axis deviation T wave abnormality, consider lateral ischemia Prolonged QT Abnormal ECG When compared with ECG of 24-APR-2019 16:49, (Unconfirmed) Inverted T waves have replaced nonspecific T wave abnormality in Anterior leads Unconfirmed Result
[2019-04-25 07:44] LABS: CHOLESTEROL 176 mg/dL (0-200); HDL 43 mg/dL (35-55); LDL 113 mg/dL; TRIGLYCERIDES 100 mg/dL (39-160); VLDL 20 mg/dL
[2019-04-25 07:59] LABS: POTASSIUM 5.6 mmol/L (3.5-5.1)
[2019-04-25] MEDS: LASIX IV SCH ×2 (08:45→21:04)
[2019-04-25] MEDS: HEPARIN SUBQ SCH ×2 (08:45→21:04)
[2019-04-25] MEDS: COREG PO SCH ×2 (08:45→21:04)
[2019-04-25] MEDS ORDERED: COZAAR PO SCH (09:00)
[2019-04-25] MEDS ORDERED: ISORDIL PO SCH (09:00)
[2019-04-25] MEDS ORDERED: APRESOLINE PO SCH (09:00)
--- NOTE | 2019-04-25 11:26 | CARDIOLOGY CONSULTATION ---
DATE: 04/25/2019 REASON FOR CONSULTATION: Cardiology was consulted for new onset heart failure, severe LV dysfunction, diabetes. HISTORY OF PRESENT ILLNESS: The patient is Eritrean speaking. Does not speak Sierra Leonean. The history was obtained from the chart and using the interpretation services as well. A 34-year-old, [place] gentleman who has been living in the [facility] in [place] for more than 4 years. He was diagnosed to have diabetes in 2005; has been off medications, has not been taking his medications for that for a long time. He has also noted that he was told that he has high blood pressure. For the last 2 weeks he has been having increasing episodes of shortness of breath, dyspnea on exertion, grade 2 of late. Since then, this has worsened. He became orthopneic, came to the emergency room, was noted to be in anasarca, was admitted. He had been to the [facility] as well recently. When he came to the emergency room, blood pressure was 175/124. He was in pulmonary edema. He had an echocardiogram done which revealed severe LV dysfunction, ejection fraction of 15 to 20 percent. Symptomatically he has improved. REVIEW OF SYSTEMS: General: A 14-point review of system was done. GI system: There is no history of nausea, vomiting, or diarrhea. There is no history of hematemesis or melena. Central nervous system: No focal weakness to suggest a CVA, TIA. system: There is no dysuria or hematuria. PAST MEDICAL HISTORY: 1. Diabetes. 2. Hypertension. 3. Middle finger amputation. FAMILY HISTORY: Unremarkable. SOCIAL HISTORY: Used to smoke about 15 years ago. Denies alcohol or drug abuse. PHYSICAL EXAMINATION: Vital Signs: Blood pressure when he came in was 183/121; today blood pressure was 109/80. Neck: Jugular venous pressure was elevated. Cardiovascular system: First and second heart sounds were heard. There was a soft murmur. Respiratory system: Bibasilar inspiratory crepitations. Abdomen: Soft, nontender. There was no guarding or rigidity. Bowel sounds were heard. Central nervous system: Alert and oriented, was moving all 4 extremities. Extremities: Examination of extremities revealed pitting edema up to his thighs. LABORATORY EXAMINATION: WBC 6.92, hemoglobin 12.7, platelet count of 347. Creatinine 1.8 on admission. ProBNP 29,565. IMAGING STUDIES: Echocardiogram revealed ejection fraction of 15 to 20 percent. There is global hypokinesis, small pericardial effusion. No evidence of tamponade. Chest x-ray revealed bilateral interstitial disease suggestive of pulmonary edema. Chest x-ray today revealed improving pulmonary edema. LABORATORY EXAMINATION: 1. Today revealed a sodium 140, potassium 5.6, BUN 47, creatinine 2.5. Glucose was 128. 2. Serum iron level was 36. His thyroid profile on 04/24/2019 revealed 1.62, within normal range. ASSESSMENT AND PLAN: Alexis Holder is a 34-year-old, gentleman with history of hypertension, diabetes, not on any treatment, is admitted with increasing shortness of breath, became orthopneic and admitted as a severe left ventricular dysfunction, ejection fraction of 15 to 20 percent with congestive heart failure. Symptomatically he has improved. He was in anasarca. He was given intravenous Lasix and Cozaar as well for his severe congestive heart failure and there is worsening of renal function. In addition, he is known to have diabetes and hypertension, not on any medications. He is admitted with severe hypertension. RECOMMENDATIONS: 1. As far as the etiology of heart failure is concerned, he has had longstanding hypertension, diabetes not on any treatment. There is worsening of his symptoms within the last 2 weeks with severe left ventricular dysfunction. As far as the etiology of severe left ventricular dysfunction is concerned, may be viral etiology to account for this sudden worsening of his symptoms. I do not have any other echocardiogram to compare with. I am going by his history as this was a sudden worsening. Regardless, given his hypertension and diabetes, workup to rule out obstructive coronary artery disease and needs to be performed, we will plan for that once he is euvolemic. 2. He has systolic heart failure with worsening renal function and diabetes. His Cozaar has been held. Given this, we will continue with his Coreg. I will put him on and Lanoxin 0.125 mg a day, and decrease his Lasix to 40 mg twice daily. If his kidney function improves as hopefully this would, we will again retry him back on BALTAZAR inhibitors as this would be the most optimal option as far as his severe left ventricular dysfunction is concerned. 3. Renal insufficiency could also be secondary to his diabetes. His baseline creatinine was 1.8. We will follow along as far as that is concerned. 4. Diabetes. Continue with his current medications. 5. He has normocytic anemia. Iron studies revealed low iron content. 6. As far as other etiologies of his cardiomyopathy is concerned, his thyroid function was normal. Ferritin levels were not into the abnormal range. He has low iron content. Thank you for the consult. We will follow hospital course. cc: Jacky Brown MD [facility]
[2019-04-25] MEDS: LANOXIN PO SCH (13:08)
[2019-04-25] MEDS: ALBUMIN 25% IV SCH (13:08)
--- NOTE | 2019-04-25 14:22 | PROGRESS NOTE ---
DATE: 04/25/2019 SUBJECTIVE: This morning Mr. Holder refers to be doing fairly okay, denies any new complaints. He said he is feeling much better. Shortness of breath has improved. OBJECTIVE: Vital signs: Blood pressure 127/86, pulse of 83, respirations 17, temperature is 98.4 degrees. Patient is saturating 97% on room air. General: Mr. Holder is a 34-year-old gentleman. He is in bed, in no distress. Mucosa is pink and moist. Anicteric. Acyanotic. Neck: Supple. There is still positive JVD. Chest: Air entry is bilaterally reduced. There are diffuse crackles in both lungs maynard. Cardiovascular: Regular rate and rhythm. No murmurs, no rubs, no gallops. GI: Abdomen is soft, is distended. There is some edema on the lateral aspect of the abdominal wall. Extremities: 2+ pedal edema. CHIEF JUVENILE PROBATION OFFICER: Patient is awake, alert, and oriented. LABORATORY DATA: Sodium is 140, potassium is up to 5.6, chloride is 106, bicarb is 24. The patient's BUN is 47 and creatinine is 2.6. The patient's input and output: Urine output was only 350 charted overnight. IMAGING: A repeat chest x-ray this morning showed significant improvement from prior. ASSESSMENT AND PLAN: 1. Anasarca secondary to congestive heart failure with systolic dysfunction associated with hypoalbuminemia. 2. Dyspnea on presentation secondary to pulmonary edema with possible superimposed pneumonia. Patient is on diuretic therapy and antimicrobial. Chest x-ray this morning seems to suggest significant improvement. 3. Severe hypertension on presentation, improved. 4. Systolic heart failure, ejection fraction of 15-20 percent on echo with global hypokinesis. Etiology is unclear. Cardiology is on board. I think once patient attains euvolemic status, coronary artery disease needs to be ruled out. 5. Diabetes mellitus with presenting A1c of 7.2. 6. Persistent recurrent hypoglycemia, most likely due to oral hypoglycemic toxicity, unsure if the patient was on sulfonylurea as he is not able to give that history. He has been given a couple doses of D50 and glucagon. We will put him on octreotide for glucose stabilization. 7. Hypoalbuminemia, most likely due to protein-calorie malnutrition. The patient has normal cholesterol, which makes nephrotic syndrome less likely however possible. Will be pending 24urine protein level. 8. Renal failure with unremarkable urinalysis. We are getting a urine sodium and urine osmolarity. This is suspected to be a cardiorenal syndrome. We will also get an echo ultrasound of the kidneys and get Nephrology to evaluate him once we get all the investigations. Of note, the patient's creatinine worsened this morning, associated with potassium elevation, which I suspect is due to the new medication that was given, which is losartan, so this has been discontinued. cc: Alex Hillman MD [facility]
[2019-04-25 14:36] LABS: UR CREAT RANDOM 36.2 mg/dL (14-26)
[2019-04-25] MEDS ORDERED: MORPHINE IV ONE (19:34)
[2019-04-25] MEDS ORDERED: MORPHINE IV PRN (19:36)
--- NOTE | 2019-04-25 21:01 | Diag Imaging Result Doc PS360 ---
US RENAL 2 (RETROPER) COMPLETE - 04/25/2019 INDICATION: igor/arf TECHNIQUE: COMPARISON: None FINDINGS: The urinary bladder is extremely distended, measuring about 12 x 10 cm. The kidneys are normal. No hydronephrosis. No mass or cyst. The right kidney measures 10.7 x 5.7 x 4.8 cm. The left kidney measures 10 x 4.7 x 5.4 cm. IMPRESSION: Severely distended urinary bladder. Consider placing a Man catheter. Electronically signed by Tico Birch 04/25/2019 8:59 PM
[2019-04-25] MEDS: BIDIL PO SCH (21:04)
[2019-04-25 23:01] LABS: URINE SOURCE CATH
[2019-04-25 23:03] LABS: BILIRUBIN URINE NEGATIVE (NEGATIVE); BLOOD URINE NEGATIVE (NEGATIVE); COLOR YELLOW; GLUCOSE URINE 100 mg/dL (NEGATIVE); KETONE URINE NEGATIVE (NEGATIVE); LEUKOCYTES URINE NEGATIVE (NEGATIVE); NITRITE URINE NEGATIVE (NEGATIVE); PH URINE 6.5; PROTEIN URINE 300 mg/dL (NEGATIVE); TURBIDITY URINE CLEAR (CLEAR); UR EPITHELIAL CELLS <10 /HPF (<10); URINE BACTERIA NEGATIVE /HPF; URINE RBC <10 /HPF (<10); URINE WBC <10 /HPF (<10); UROBILINOGEN URINE NORMAL (NORMAL)
[2019-04-26] MEDS: SANDOSTATIN SUBQ SCH (03:04)
[2019-04-26] MEDS: MAXIPIME 1 GM in NS 50 ML IV SCH ×2 (03:04→16:18)
[2019-04-26] MEDS: ZYVOX PO SCH ×2 (05:19→17:30)
[2019-04-26 06:58] LABS: BASO# 0.14 X1000 (0.0-0.2); BASO% 1.9 % (0.0-0.8); EOS# 0.55 X1000 (0.0-0.7); EOS% 7.5 % (0.0-10.0); HEMATOCRIT 27.6 % (42.0-52.0); HEMOGLOBIN 8.9 g/dL (14.0-18.0); IMM GRAN# 0.02 X1000 (0.0-0.04); IMM GRAN% 0.3 % (0.0-0.5); LYMPH% 16.4 % (20.5-51.1); MCH 29.4 PG (27-31); MCHC 32.2 g/dL (33-37); MCV 91.1 FL (81-99); MONO# 0.61 X1000 (0.11-0.59); MONO% 8.3 % (1.7-9.3); MPV 10.8 FL (7.4-10.4); NEUT# 4.79 X1000 (1.4-6.5); NEUT% 65.6 % (42.2-75.2); PLT 308 X1000 (130-400); RBC 3.03 XMIL (4.7-6.1); RDW 13.7 % (11.5-14.5); WBC 7.31 X1000 (4.8-10.8)
[2019-04-26 07:14] LABS: ALB/GLOB RATIO 1.3; CALCIUM 8.2 mg/dL (8.8-10.2); CREATININE 2.5 mg/dL (0.7-1.2); MAGNESIUM 2.3 mg/dL (1.5-2.7); PHOSPHORUS 5.2 mg/dL (2.7-4.5); TOTAL BILIRUBIN 0.44 mg/dL (0.20-1.00); TOTAL PROTEIN 5.3 g/dL (6.3-8.3)
[2019-04-26 07:15] LABS: POTASSIUM 5.9 mmol/L (3.5-5.1)
[2019-04-26] MEDS: BIDIL PO SCH ×3 (08:09→17:30)
[2019-04-26] MEDS: LANOXIN PO SCH (08:09)
[2019-04-26] MEDS: HEPARIN SUBQ SCH ×2 (08:09→20:21)
[2019-04-26] MEDS: LASIX IV SCH ×2 (08:09→20:21)
[2019-04-26] MEDS: COREG PO SCH ×3 (08:09→20:22)
[2019-04-26] MEDS: DITROPAN PO SCH ×2 (08:40→20:21)
[2019-04-26] MEDS: ALBUMIN 25% IV SCH (09:10)
--- NOTE | 2019-04-26 09:25 | PROGRESS NOTE ---
DATE: 04/26/2019 SUBJECTIVE: This morning Mr. Holder refers to be doing a lot better. He said he does not have any more nauseation or discomfort in his abdomen. OBJECTIVE: Vital signs: Blood pressure is 173/103, pulse of 93, respiration is 18, temperature is 97.7. General: Mr. Holder is a 34-year-old gentleman. He is in bed, no distress. HEENT: Mucosa is pink and moist. Anicteric. Acyanotic. Neck: Supple. There is still positive JVD. Chest: Air entry is reduced. There is crackles in the posterior lung field in inspiration. Cardiovascular: Regular rate and rhythm. No murmurs, no rubs. GI: Abdomen is soft, distended. Some edema in the lateral aspect of the abdominal wall. Extremities: 2+ pedal edema. DIGITAL STRATEGY MANAGER: Patient is awake, alert, oriented. Follows commands. I'S AND O'S: I's and O's 9 925 urine output has been documented. The patient is currently negative balance. LABORATORY DATA: WBC is 7.39, hemoglobin is 8.9, platelet count of 308,000. Chemistry: Potassium is 5.9 BUN went up to 51, creatinine stable at 2.5, phosphorus is 5.2, magnesium is 2.3. AST and ALT are within normal range. Glucose is 140. A renal ultrasound which was done yesterday shows that the bladder was severely distended. However, the kidneys looked unremarkable. ASSESSMENT: 1. Anasarca, most likely due to congestive heart failure with systolic dysfunction associated with hypoalbuminemia. 2. Dyspnea on presentation secondary to pulmonary edema from congestive heart failure. 3. Severe hypertension on presentation improving. 4. Systolic heart failure ejection fraction of 15% to 20% on echo with global hypokinesis. Cardiology is on board. Coronary pathology will be ruled out once patient is euvolemic. 5. Diabetes mellitus with presenting A1c of 7.2 noted. 6. Hypoglycemia on admission most likely due to sulfourea toxicity. This has stabilized. 7. Hypoalbuminemia. The patient urine analysis seems to suggest protein in it. We are doing a 24 hour urine collection to rule out nephrotic syndrome. Cholesterol however is normal. 8. Renal failure etiology and chronicity is unknown. We are getting a 24 hour urine collection and we will get Nephrology to also evaluate him. 9. Obstructive uropathy with severely distended urinary bladder. This has been overcome with Man catheter. Hopefully, that also improves some of the renal functions. 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 The patient has been started on tamsulosin and oxybutynin. We will follow up and see how he does. cc: Alex Hillman MD
[2019-04-26 15:14] LABS: UR CREATININE 34.4 mg/dL (14-26)
[2019-04-26 15:19] LABS: UR PROTEIN 397.9 mg/dL
[2019-04-26 15:21] LABS: UR CREATININE TOTAL 670.8 mg/24 (800-1800)
[2019-04-26 15:22] LABS: CREATININE 2.5 mg/dL (0.7-1.2)
[2019-04-26] MEDS ORDERED: PRINIVIL PO SCH (17:45)
[2019-04-26] MEDS: FLOMAX PO SCH (20:21)
[2019-04-27] MEDS: LOKELMA POWDER PACKET PO SCH (00:25)
[2019-04-27] MEDS: ZYVOX PO SCH (05:05)
[2019-04-27] MEDS: MAXIPIME 1 GM in NS 50 ML IV SCH (05:05)
[2019-04-27 06:13] LABS: HEMATOCRIT 26.1 % (42.0-52.0); HEMOGLOBIN 8.3 g/dL (14.0-18.0); MCH 29.3 PG (27-31); MCHC 31.8 g/dL (33-37); MCV 92.2 FL (81-99); MPV 10.8 FL (7.4-10.4); RBC 2.83 XMIL (4.7-6.1); RDW 13.8 % (11.5-14.5); WBC 7.65 X1000 (4.8-10.8)
[2019-04-27 06:22] LABS: CALCIUM 8.2 mg/dL (8.8-10.2); CREATININE 2.9 mg/dL (0.7-1.2); POTASSIUM 5.5 mmol/L (3.5-5.1)
--- NOTE | 2019-04-27 07:44 | EKG Report ---
Test Performed on : 04/24/2019 4:49:08 PM Test Reason : repeat chest pain Blood Pressure : / mmHG Vent. Rate : 107 BPM Atrial Rate : 107 BPM P-R Int : 140 ms QRS Dur : 084 ms QT Int : 362 ms P-R-T Axes : 036 -30 126 degrees QTc Int : 483 ms Sinus tachycardia. Left axis deviation T wave abnormality, consider lateral ischemia Abnormal ECG When compared with ECG of 24-APR-2019 07:41, (Unconfirmed) Criteria for Septal infarct are no longer present Unconfirmed Result
[2019-04-27] MEDS: LANOXIN PO SCH (08:25)
[2019-04-27] MEDS: ALBUMIN 25% IV SCH (08:25)
[2019-04-27] MEDS: DITROPAN PO SCH ×2 (08:26→20:44)
[2019-04-27] MEDS: HEPARIN SUBQ SCH ×2 (08:26→20:44)
[2019-04-27] MEDS: BIDIL PO SCH ×3 (08:26→16:51)
[2019-04-27] MEDS: LASIX IV SCH ×2 (08:26→20:44)
[2019-04-27] MEDS: COREG PO SCH ×2 (08:26→20:44)
[2019-04-27] MEDS: PRINIVIL PO SCH (09:44)
--- NOTE | 2019-04-27 11:21 | PROGRESS NOTE ---
DATE: 04/27/2019 SUBJECTIVE: This morning, Ms. Glory Espinoza refers to be doing better. He is breathing a lot better and the leg swelling is also improving. OBJECTIVE: Current vitals are blood pressure 101/62, pulse of 74, respirations 14, temperature 97.6 degrees.General: Mr. Glory Espinoza is a 34-year-old gentleman. He is in bed, no distress. HEENT: Mucosa is pink and moist. Anicteric. Acyanotic. Neck: Neck is supple. Chest: Good air entry bilateral. There are still some diffuse crackles in the posterior lung maynard. Cardiovascular: Regular rate and rhythm. No murmurs, no rubs, no gallops. Abdomen: Soft, distended. There is still some edema in the lateral aspect of the abdominal wall. Extremities: 2+ pedal edema. SECURITY ASSISTANT: Patient is awake, alert, oriented. LABORATORY DATA: WBC is 7.65, hemoglobin is 8.3, platelet count of 271,000. Chemistry is also reviewed. Unfortunately, creatinine has gone up to 2.9. Potassium is trending down. The 24-hour urine collection did show protein was over 7000. ASSESSMENT: 1. Anasarca secondary to combination of systolic heart failure and nephrotic syndrome. 2. Dyspnea on presentation secondary to pulmonary edema from congestive heart failure, improved. 3. Severe hypertension on presentation, improved. 4. Systolic heart failure, ejection fraction of 15% to 20% on echo with global hypokinesis. Cardiology is on board. There is plan for coronary investigations once patient becomes euvolemic. 5. Diabetes mellitus with presenting A1c of 7.2. The patient has been started on insulin regimen because of his advanced renal disease. Metformin and other hypoglycemic agents are quite contraindicated and could be dangerous. 6. Hypoglycemia on admission, most likely due to sulfonylurea side effects, improved. 7. Nephrotic range proteinuria on a 24 hour urine collection, most likely due to diabetic nephropathy. Nephrology has been consulted. 8. Renal failure. Etiology and chronicity is unknown, but we suspect this is chronic kidney disease as a result of diabetic nephropathy. We will, however, wait for Nephrology to evaluate him. 9. 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 The patient has a Man catheter in place for now. He has also been started on tamsulosin and oxybutynin. I think by tomorrow we might be able to take the catheter out if it is okay with Nephrology. PLAN: In general, Mr. Glory Espinoza is a 34-year-old male who has longstanding history of diabetes and hypertension, has not been following up and was not on regular medication until about a week before he came to the hospital. During the hospital course, he was found to be volume overloaded, which we attributed to congestive heart failure and hypoalbuminemia from nephrotic syndrome. His 24-hour urine collection shows possible CKD IV. However, the measurement could be inaccurate. He does have very severe nephrotic range proteinuria, so he has been started on lisinopril despite the kidney function abnormality. We are waiting for Nephrology to evaluate him. The patient is being seen by Cardiology as well. His ultimate discharge plan will be dependent on the rest of his hospital course and further recommendations from Cardiology and Nephrology. cc: Alex Hillman MD [facility]
--- NOTE | 2019-04-27 13:08 | PROVIDER PROGRESS NOTE ---
Progress Note Chief complaint: I was short of breath. HPI: Mr. Hernandez is a 34-year-old [facility] male with a past medical history of controlled diabetes Mellitus type 2 and hypertension. He presented to the ED on 04/24/19 with a 2 week history shortness of breath and nonproductive cough that was more severe the previous night. He has been sleeping with two pillows behind his back propped up and the night of 04/23/19 he could not catch his breath and voices feelings of impending doom. He denied any nausea, vomiting, chest pain, fever, or chills at the time. He admits to going to an urgent care the previous week for the same symptoms and BLE and scrotal edema. He was given blood pressure medication, cough medicine, and an oral glycemic lowering agent. He was not on any diabetic medication before then. His admitting Creatinine was 1.8 and today it is up to 2.9. Past medical history: diabetes mellitus type two, hypertension. 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 Social history: Lives alone. Denies current tobacco, alcohol, or illicit drug use. Previous tobacco smoker. Family history: denies any contributory family health history. Allergies: no known. Home medications: none. Review of systems: neurological: denies altered mental status or confusion. Eyes: delayed denies blurriness, dryness, or change in visual cutie. ENT: denies tinnitus or change in hearing. Integumentary: denies any erythema, rash, or itching. Respiratory: admits to shortness of breath, orthopnea, and cough. Cardiovascular: denies palpitations or chest pain. G.I.: denies recent constipation or nausea and vomiting. Admits to abdominal pain and tenderness. : no change in urine production, flow, or odor. Endocrine: denies excessive thirst or hunger. Musculoskeletal: denies any weakness or extremity pain. Labs: WBC 7.65, hemoglobin 8.3, hematocrit 26.1, platelet count 271, sodium 141, potassium 5.5, chloride 106, carbon dioxide 24, anion gap 11, BUN 56, creatinine 2.9, calcium 8.2. Urine studies: 34.4 creatinine, 24-hour creatinine 670.8, creatinine clearance 19, total 24-hour proteins 7759. Imaging: chest x-Ray impression stable cardiomegaly, improved interstitial pulmonary Edema. Decrease in small bilateral pleural effusions. Renal ultrasound impression severely distended urinary bladder. Physical exam: vitals. Temperature 97.6, pulse 74, respirations 14, blood pressure 101/62, 02 sat 96% on room air. General: middle aged sitting up in no acute distress HEENT: normocephalic, atraumatic, pupils equal and reactive. Mucous membranes moist. Skin: warm and dry. Scrotal edema noted Neck: supple, No jvd observed sitting up right Cardiovascular: s1s2 regular rate and rhythm, no murmurs or gallops Respiratory: diminished bases bilaterally Abdominal: soft, tender, non distended, bowel sounds present : non inspected, Randhawa in place Extremities: 3+ pitting edema to BLE Neurologic: alert and oriented to person, place, and time. Assessment and plan: Acute kidney injury. Obstructed bladder outlet but no hydronephrosis. Now improvement yet following randhawa placement. Certainly he is at risk for ATN as well as cardiorenal syndrome given his low EF. Continue randhawa. He received diuretic therapy. Observe. rg Hyperkalemia. Improving. Hypoalbuminemia. Receiving IV albumin. Nutrition. Will order supplements Ambulation. Up ambulating in room. Medication review.
[2019-04-27 15:46] LABS: URINE SOURCE CATH
[2019-04-27 16:15] LABS: BILIRUBIN URINE NEGATIVE (NEGATIVE); BLOOD URINE LARGE (NEGATIVE); COLOR ORANGE; GLUCOSE URINE 150 mg/dL (NEGATIVE); KETONE URINE NEGATIVE (NEGATIVE); LEUKOCYTES URINE TRACE (NEGATIVE); NITRITE URINE NEGATIVE (NEGATIVE); PH URINE 6.5; PROTEIN URINE 600 mg/dL (NEGATIVE); SP GRAVITY URINE 1.016; TURBIDITY URINE HAZY (CLEAR); UROBILINOGEN URINE NORMAL (NORMAL)
[2019-04-27 16:17] LABS: UR EPITHELIAL CELLS <10 /HPF (<10); URINE BACTERIA NEGATIVE /HPF; URINE RBC TNTC /HPF (<10); URINE WBC 20-40 /HPF (<10)
[2019-04-27 16:20] LABS: UR CREAT RANDOM 77.7 mg/dL (14-26); UR PROT RANDOM 597.2 mg/dL
[2019-04-27] MEDS: FLOMAX PO SCH (20:44)
[2019-04-28] MEDS: LOKELMA POWDER PACKET PO SCH ×2 (00:02→21:25)
[2019-04-28] MEDS: HUMULIN 70/30 SUBQ SCH (06:13)
[2019-04-28 06:16] LABS: HEMATOCRIT 25.9 % (42.0-52.0); HEMOGLOBIN 8.4 g/dL (14.0-18.0); MCH 29.6 PG (27-31); MCHC 32.4 g/dL (33-37); MCV 91.2 FL (81-99); RBC 2.84 XMIL (4.7-6.1); RDW 13.7 % (11.5-14.5); WBC 7.46 X1000 (4.8-10.8)
[2019-04-28 06:37] LABS: CREATININE 3.4 mg/dL (0.7-1.2); POTASSIUM 5.1 mmol/L (3.5-5.1)
--- NOTE | 2019-04-28 07:13 | Diag Imaging Result Doc PS360 ---
EXAM: CHEST-PORTABLE 04/28/2019 HISTORY: dyspnea TECHNIQUE: AP portable upright at 0518 COMMENT: There is alveolar opacity in the perihilar portion of the right upper lobe. There are bilateral pleural effusions worse on the right than the left. There is atelectasis versus pneumonia in both lower lobes. The latter finding has worsened particularly with regard to the left lower lobe since 04/25/2019. IMPRESSION: Pulmonary edema and/or pneumonia with worsening atelectasis versus pneumonia in the left lower lobe. Electronically signed by Foster Meza 04/28/2019 7:10 AM
[2019-04-28] MEDS: HEPARIN SUBQ SCH ×2 (09:11→21:21)
[2019-04-28] MEDS: LANOXIN PO SCH (09:11)
[2019-04-28] MEDS: COREG PO SCH ×2 (09:11→21:22)
[2019-04-28] MEDS: BIDIL PO SCH ×3 (09:11→16:17)
[2019-04-28] MEDS: DITROPAN PO SCH ×2 (09:11→21:22)
[2019-04-28] MEDS: PRINIVIL PO SCH (09:11)
[2019-04-28] MEDS: LASIX IV SCH ×2 (09:12→21:21)
[2019-04-28] MEDS ORDERED: DOPAMINE 400 MG/D5W 400 MG/500 ML IV.SOLN IV SCH (11:00)
[2019-04-28] MEDS: ALBUMIN 25% IV SCH ×2 (11:17→16:08)
[2019-04-28] MEDS ORDERED: DOBUTAMINE 500/D5W 500 MG/250 ML IV.SOLN IV SCH (13:15)
[2019-04-28] MEDS ORDERED: LASIX IV ONE (13:16)
[2019-04-28] MEDS ORDERED: NS 500 ML ONE (13:46)
[2019-04-28] MEDS ORDERED: NS 250 ML ONE (14:45)
[2019-04-28 15:03] LABS: INR 1.04; PROTIME 13.7 Seconds (11.0-16.0)
--- NOTE | 2019-04-28 16:05 | PROVIDER PROGRESS NOTE ---
Progress Note Subjective: Pt lying in bed resting, aroused to verbal stimuli, voices less nausea and vomiting and shortness of breath. Objective: temperature 98.2, pulse 81, respirations 14, blood pressure 127/83, O2 sat 100% on 2 L nasal cannula. General: middle aged sitting up in no acute distress HEENT: normocephalic, atraumatic, pupils equal and reactive. Mucous membranes moist. Skin: warm and dry. Scrotal edema noted Neck: supple, No jvd observed sitting up right Cardiovascular: s1s2 regular rate and rhythm, no murmurs or gallops, enlarged PMI and displaced. Respiratory: diminished bases bilaterally Abdominal: soft, tender, non distended, bowel sounds present : non inspected, Randhawa in place Extremities:2+ pitting edema to BLE, right arm 2+ pitting edema. Neurologic: alert and oriented to person, place, and time. Labs: WBC 7.46, hemoglobin 8.4, hematocrit 25.9, platelet count 276, sodium 137, potassium 5.1, chloride 101, carbon dioxide 23, BUN 63, creatinine 3.4. intake 680, output 1350. Impression: Acute kidney injury. Obstructed bladder outlet with no hydronephrosis or improved Creatinine with randhawa placement. Risk of ATN and cardiorenal syndrome. Hes been in negative fluid balance with diuretics and continues to have a worsening Creatinine. Spoke with Stephanie about inotropic support. Added dopamine. Hyperkalemia. Improving. Hypoalbuminemia. Improving. Nutrition. Improved. Ambulation. Up ambulating in room. Medication review. No changes.
[2019-04-28] MEDS ORDERED: CATAPRES PO PRN (19:08)
--- NOTE | 2019-04-28 19:59 | Extremity Venous Study ---
PROCEDURE NAME: Venous U/S Right Arm - 04/27/2019 RANGER AIDE: Lokesh. REQUESTING PHYSICIAN: Alex Hillman MD. INDICATION: Right arm swelling. FINDINGS: The deep and superficial veins of the right upper extremity were visualized along their course. The vessels were compressible with forward flow and no evidence of intraluminal thrombus. SUMMARY: No deep or superficial venous thrombosis seen in the right upper extremity. cc: MD Alex Jacobo MD
[2019-04-28] MEDS: FLOMAX PO SCH (21:22)
[2019-04-28] MEDS: CATAPRES PO PRN (21:22)
[2019-04-29] MEDS ORDERED: MORPHINE IV ONE (00:39)
[2019-04-29] MEDS: HUMULIN 70/30 SUBQ SCH (06:10)
[2019-04-29 06:11] LABS: HEMATOCRIT 27.7 % (42.0-52.0); HEMOGLOBIN 9.2 g/dL (14.0-18.0); MCH 29.6 PG (27-31); MCHC 33.2 g/dL (33-37); MCV 89.1 FL (81-99); RBC 3.11 XMIL (4.7-6.1); RDW 13.7 % (11.5-14.5); WBC 8.62 X1000 (4.8-10.8)
[2019-04-29] MEDS: CATAPRES PO PRN (06:14)
[2019-04-29 06:46] LABS: CALCIUM 8.3 mg/dL (8.8-10.2); POTASSIUM 4.3 mmol/L (3.5-5.1)
[2019-04-29] MEDS: LASIX IV SCH ×2 (08:00→20:04)
[2019-04-29] MEDS: ALBUMIN 25% IV SCH (08:00)
[2019-04-29] MEDS: HEPARIN SUBQ SCH ×2 (08:00→21:14)
[2019-04-29] MEDS: BIDIL PO SCH ×3 (08:01→16:12)
[2019-04-29] MEDS: COREG PO SCH ×2 (08:01→20:04)
[2019-04-29] MEDS: DITROPAN PO SCH ×2 (08:01→20:05)
[2019-04-29] MEDS: LANOXIN PO SCH (08:01)
--- NOTE | 2019-04-29 09:09 | NEPHROLOGY PROGRESS NOTE ---
DATE: 04/29/2019 SUBJECTIVE: He denies new complaints. Lying flat. His dopamine and dobutamine were discontinued because of hypertension. OBJECTIVE: Vital signs: Blood pressure 175/81, heart rate 83, respirations 17, afebrile. Intake 1 L, output 4.1 L. PHYSICAL EXAMINATION: General: No acute distress. Skin: Warm and dry. Neck: Neck veins are not appreciated. Heart: Regular with S4. Lungs: Equal. No crackles. Abdomen: Soft, nontender, bowel sounds are present. Extremities: Have no edema except in the right upper extremity. IMPRESSION: Acute kidney injury overlying chronic kidney disease. Presumed. Cardiorenal syndrome. Creatinine modestly better today despite negative fluid balance. No medical changes. cc: Delvin Pardo MD
[2019-04-29] MEDS ORDERED: ZOFRAN IV PRN (09:35)
[2019-04-29] MEDS ORDERED: NITROGLYCERIN 50 MG/D5W 50 MG/250 ML IV.SOLN IV SCH (10:00)
[2019-04-29] MEDS: LOKELMA POWDER PACKET PO SCH (10:02)
[2019-04-29] MEDS ORDERED: DOBUTAMINE 500/D5W 500 MG/250 ML IV.SOLN IV SCH (12:00)
[2019-04-29] MEDS ORDERED: APRESOLINE PO SCH (13:00)
[2019-04-29] MEDS ORDERED: BIDIL PO SCH (13:00)
[2019-04-29] MEDS: FLOMAX PO SCH (20:04)
[2019-04-30] MEDS: TYLENOL PO PRN (00:15)
[2019-04-30 05:17] LABS: BASO# 0.04 X1000 (0.0-0.2); BASO% 0.5 % (0.0-0.8); EOS# 0.46 X1000 (0.0-0.7); EOS% 6.1 % (0.0-10.0); HEMATOCRIT 29.4 % (42.0-52.0); HEMOGLOBIN 9.5 g/dL (14.0-18.0); LYMPH# 0.96 X1000 (1.2-3.4); LYMPH% 12.7 % (20.5-51.1); MCH 28.6 PG (27-31); MCHC 32.3 g/dL (33-37); MCV 88.6 FL (81-99); MONO% 7.9 % (1.7-9.3); MPV 10.7 FL (7.4-10.4); NEUT# 5.49 X1000 (1.4-6.5); NEUT% 72.8 % (42.2-75.2); PLT 279 X1000 (130-400); RBC 3.32 XMIL (4.7-6.1); RDW 13.4 % (11.5-14.5); WBC 7.55 X1000 (4.8-10.8)
[2019-04-30 05:54] LABS: CALCIUM 8.6 mg/dL (8.8-10.2); CREATININE 2.6 mg/dL (0.7-1.2); MAGNESIUM 2.2 mg/dL (1.5-2.7)
[2019-04-30] MEDS: HUMULIN 70/30 SUBQ SCH (08:15)
[2019-04-30] MEDS: LOKELMA POWDER PACKET PO SCH (08:22)
[2019-04-30] MEDS: ALBUMIN 25% IV SCH (08:22)
[2019-04-30] MEDS: LANOXIN PO SCH (08:23)
[2019-04-30] MEDS: DITROPAN PO SCH ×2 (08:23→21:12)
[2019-04-30] MEDS: COREG PO SCH ×2 (08:23→21:11)
[2019-04-30] MEDS: BIDIL PO SCH ×3 (08:23→16:08)
[2019-04-30] MEDS: HEPARIN SUBQ SCH ×2 (08:24→21:15)
[2019-04-30] MEDS: LASIX IV SCH ×2 (08:24→21:15)
[2019-04-30] MEDS ORDERED: INSULIN PEN NEEDLES ONE (08:36)
--- NOTE | 2019-04-30 10:27 | PROVIDER PROGRESS NOTE ---
Progress Note Subjective: pt in bed at 90 degrees, voices no complaints. Packaging Engineer at bedside. Objective: temp 98.6, pulse 91, respirations 10, blood pressure 142/88, 02 sat 96% on 2 L nasal cannula. General: middle aged sitting up in no acute distress HEENT: normocephalic, atraumatic, pupils equal and reactive. Mucous membranes moist. Skin: warm and dry. Neck: supple, No jvd observed Cardiovascular: s1s2 regular rate and rhythm, soft systolic murmurs, no gallop, enlarged PMI and displaced. Respiratory: diminished bases bilaterally Abdominal: soft, tender, non distended, bowel sounds present : non inspected, Man in place Extremities:1+ pitting edema to BLE, right arm Trace edema. Neurologic: alert and oriented to person, place, and time. Labs: WBC 7.55, hemoglobin 9.5, hematocrit 29.4, platelet count 279, sodium 139, potassium 4.0, chloride 101, carbon dioxide 24, BUN 63, creatinine 2.6. Intake 398, output 2850. Impression: Acute kidney injury overlying presumed chronic kidney disease. Likely cardiorenal syndrome. He is back on Dobutamine gtt after fluctuating blood pressures. Creatinine improving. We will make no changes. Nutrition. Improved. Ambulation. Up with assist. Medication review. No changes.
[2019-04-30] MEDS ORDERED: DOBUTAMINE 500/D5W 500 MG/250 ML IV.SOLN IV SCH (12:54)
--- NOTE | 2019-04-30 14:21 | Diag Imaging Result Doc PS360 ---
EXAM: CHEST-PORTABLE HISTORY: dyspnea TECHNIQUE: Single view COMPARISON: 04/28/2019 FINDINGS: Poor inspiratory effort. Cardiomegaly remains. There are bilateral infiltrates and pulmonary edema. Interval decrease in the size of the bilateral pleural effusions. A left-sided PICC line has been placed. The tip overlies the right atrium. IMPRESSION: Slight interval improvement Electronically signed by Mahesh Singleton 04/30/2019 2:18 PM
[2019-04-30] MEDS: FLOMAX PO SCH (21:15)
[2019-04-30 22:04] LABS: HIV ANTIBODY SCREEN SEE COMMENTS
[2019-05-01 05:43] LABS: ALB/GLOB RATIO 1.9; ALBUMIN 3.4 g/dL (3.5-5.0); CALCIUM 8.5 mg/dL (8.8-10.2); CREATININE 2.4 mg/dL (0.7-1.2); MAGNESIUM 2.2 mg/dL (1.5-2.7); POTASSIUM 3.6 mmol/L (3.5-5.1); TOTAL BILIRUBIN 0.4 mg/dL (0.20-1.00); TOTAL PROTEIN 5.2 g/dL (6.3-8.3)
[2019-05-01] MEDS: HUMULIN 70/30 SUBQ SCH (06:11)
[2019-05-01] MEDS: ALBUMIN 25% IV SCH (08:23)
[2019-05-01] MEDS: HEPARIN SUBQ SCH ×2 (08:23→20:51)
[2019-05-01] MEDS: COREG PO SCH ×2 (08:24→20:52)
[2019-05-01] MEDS: DITROPAN PO SCH ×2 (08:24→20:53)
[2019-05-01] MEDS: LASIX IV SCH ×2 (08:25→20:51)
[2019-05-01] MEDS: LOKELMA POWDER PACKET PO SCH (08:25)
[2019-05-01] MEDS: BIDIL PO SCH ×3 (08:25→16:06)
[2019-05-01] MEDS: LANOXIN PO SCH (08:25)
[2019-05-01 14:31] LABS: ANTINEUTROPHIL CYTOPLASMIC AB SEE COMMENTS
[2019-05-01] MEDS: HUMULIN R SUBQ SCH ×2 (16:34→21:03)
--- NOTE | 2019-05-01 19:24 | NEPHROLOGY PROGRESS NOTE ---
DATE: 05/01/2019 OBJECTIVE: Vital Signs: Temperature 98.6 degrees, pulse 93, respiratory rate 14, blood pressure 143/86. Intake 823 mL, output 2.1 L. PHYSICAL EXAMINATION: General: Middle-aged gentleman resting in bed. He is in no acute distress. HEENT: Normocephalic, atraumatic. ЕЛЕНА. Neck: Supple without JVD. Cardiovascular: Regular rate and rhythm with soft systolic murmur. He remains on dobutamine drip. Respiratory: He is clear bilaterally. No increased work of breathing. Abdomen: Soft. Positive bowel sounds. : Man catheter. Extremities: Trace to 1+ edema. Integumentary: Skin is warm and dry. Neurologic: Grossly nonfocal. LAB DATA: Sodium 141, potassium 3.6, CO2 25, BUN 69, creatinine 2.4. ASSESSMENT AND PLAN: 1. Acute overlying chronic kidney disease, likely cardiorenal syndrome. He has been placed back on dobutamine with continued excellent urine output. Renal functions remained stable overnight. No indication for intervention at this time. 2. Electrolytes, acid-base balance. These are acceptable. 3. Anemia. I have no new labs. 4. Medication review. No changes. Dictated by EMILE Siu for Delvin Pardo MD cc: Delvin Pardo MD
[2019-05-01] MEDS: FLOMAX PO SCH (20:52)
[2019-05-02] MEDS: HUMULIN R SUBQ SCH ×4 (06:00→20:27)
[2019-05-02 06:04] LABS: BASO# 0.05 X1000 (0.0-0.2); BASO% 0.7 % (0.0-0.8); EOS# 0.47 X1000 (0.0-0.7); EOS% 6.3 % (0.0-10.0); HEMATOCRIT 27.2 % (42.0-52.0); HEMOGLOBIN 8.8 g/dL (14.0-18.0); LYMPH# 1.08 X1000 (1.2-3.4); LYMPH% 14.4 % (20.5-51.1); MCH 28.8 PG (27-31); MCHC 32.4 g/dL (33-37); MCV 88.9 FL (81-99); MONO# 0.82 X1000 (0.11-0.59); MONO% 10.9 % (1.7-9.3); MPV 10.9 FL (7.4-10.4); NEUT# 5.08 X1000 (1.4-6.5); NEUT% 67.7 % (42.2-75.2); PLT 249 X1000 (130-400); RBC 3.06 XMIL (4.7-6.1); RDW 13.7 % (11.5-14.5)
[2019-05-02 06:24] LABS: CALCIUM 8.3 mg/dL (8.8-10.2); CREATININE 2.6 mg/dL (0.7-1.2); DIGOXIN 0.9 ng/mL (0.9-2.0); POTASSIUM 3.5 mmol/L (3.5-5.1)
[2019-05-02] MEDS: HUMULIN 70/30 SUBQ SCH (07:09)
[2019-05-02] MEDS: HEPARIN SUBQ SCH (09:24)
[2019-05-02] MEDS: ALBUMIN 25% IV SCH (09:25)
[2019-05-02] MEDS: BIDIL PO SCH ×3 (09:25→16:41)
[2019-05-02] MEDS: LANOXIN PO SCH (09:25)
[2019-05-02] MEDS: TYLENOL PO PRN (09:25)
[2019-05-02] MEDS: COREG PO SCH ×2 (09:25→20:26)
[2019-05-02] MEDS: DITROPAN PO SCH ×2 (09:25→20:26)
[2019-05-02] MEDS: LASIX IV SCH ×2 (09:25→20:26)
[2019-05-02] MEDS: LOKELMA POWDER PACKET PO SCH (09:45)
[2019-05-02] MEDS: FLOMAX PO SCH (20:32)
--- NOTE | 2019-05-02 20:55 | NEPHROLOGY PROGRESS NOTE ---
DATE: 05/02/2019 SUBJECTIVE: The patient is sitting up in bed. No complaints today. OBJECTIVE: Vital signs: Temperature 98.7 degrees, pulse 87, respiratory rate 12, blood pressure 129/78. Intake 1.4 L, output 1.3 L. General: This is a middle-aged gentleman sitting up in bed. Awake, alert, in no acute distress. HEENT: Normocephalic, atraumatic. Oral mucosa moist. Neck is supple. No JVD. Cardiovascular: Regular rate and rhythm with a systolic murmur. Pulmonary: Clear bilaterally. Abdomen is soft. Positive bowel sounds. : Man catheter. Yellow urine. Extremities: Trace edema. Integumentary: Skin is warm and dry. Neurologic: Grossly nonfocal. LABORATORY DATA: WBC is 7.5, hemoglobin 8.8. Sodium 137, potassium 3.5, CO2 is 24, creatinine 2.6. ASSESSMENT AND PLAN: Acute overlying chronic kidney disease, likely cardiorenal syndrome. Renal function remains stable. Urine output is excellent. He is now off the dobutamine drip. Continue to monitor in the hospital. Unclear of his historic baseline. The only labs we have available for his creatinine indicated early in April he had a creatinine of 1.8. He has been 2.4 above since. Dictated by EMILE Siu for Delvin Pardo MD cc: Delvin Pardo MD
--- NOTE | 2019-05-02 21:51 | CARDIOLOGY PROGRESS NOTE ---
DATE: 05/02/2019 SUBJECTIVE: The patient reports he is doing well. He has no pain complaints. OBJECTIVE: Vital Signs: Afebrile. Heart rate 85, blood pressure 141/86. His I's and O's are relatively flat over the last 24 hours. It appears his total net output is -9.8 L. General: He is in no acute distress. Cardiovascular: He sounds to be in a regular rate and rhythm. He has no obvious murmurs. He has no S3. No lower extremity edema. His JVP appears to be relatively flat. PERTINENT DATA: His BUN and creatinine are 75 and 2.6, which are relatively stable over the last couple of days. His white count is 7.5. Hematocrit 27, which is stable. ASSESSMENT: Mr. Glory Espinoza is a 34-year-old gentleman with new-onset heart failure. PLAN: He has orders in place for perfusion imaging on Saturday. I will reorder laboratories in the morning, including a chemistry and a proBNP. His blood pressure has been somewhat erratic over the last 24 hours. We will continue to trend for the time being. cc: Sai Roman MD
--- NOTE | 2019-05-02 23:16 | PROGRESS NOTE ---
DATE: 05/02/2019 SUBJECTIVE: The patient seems to feel better. OBJECTIVE: Blood pressure 153/84, heart rate 78, respiratory 17, temperature 98.3 degrees, 92% on room air. Cardiovascular: Regular rate and rhythm.Pulmonary: Bilateral breath sounds clear to auscultation. GI: Soft, nontender, nondistended. Bowel sounds are positive. LABORATORY DATA: White count is 7, hemoglobin and hematocrit are 8 and 27, platelets 249,000. BUN and creatinine are 75 and 2.6, which may be close to his new baseline. ASSESSMENT AND PLAN: 1. Acute systolic congestive heart failure exacerbation. Continue Lasix. He is off dobutamine. He is on BiDil and he seems to be doing okay. Cardiology is following. Appreciate their input in this difficult case. 2. Nephrotic syndrome, presumably due to hypertensive and/or diabetic nephropathy. We will continue to monitor. We will continue diuresis and follow closely. 3. Anemia. His hemoglobin and hematocrit has dropped a bit. We will continue to follow. He is Hemoccult positive, so may need to hold any anticoagulation, although I do think generally speaking this is going to be related to other issues. 4. Diabetes. Appears to be stable. 5. Disposition: Difficult kind of thing, but we are watching him until Saturday and pursuing stress test on Saturday. We will continue to follow closely. cc: Esdras Hurtado MD
[2019-05-03 06:06] LABS: BASO# 0.07 X1000 (0.0-0.2); BASO% 0.8 % (0.0-0.8); EOS% 7.1 % (0.0-10.0); HEMATOCRIT 27.3 % (42.0-52.0); HEMOGLOBIN 8.8 g/dL (14.0-18.0); LYMPH# 1.14 X1000 (1.2-3.4); LYMPH% 13.5 % (20.5-51.1); MCH 28.6 PG (27-31); MCHC 32.2 g/dL (33-37); MCV 88.6 FL (81-99); MPV 10.2 FL (7.4-10.4); NEUT# 5.55 X1000 (1.4-6.5); NEUT% 65.6 % (42.2-75.2); PLT 254 X1000 (130-400); RBC 3.08 XMIL (4.7-6.1); RDW 13.4 % (11.5-14.5); WBC 8.46 X1000 (4.8-10.8)
[2019-05-03] MEDS: HUMULIN R SUBQ SCH ×4 (06:21→21:33)
[2019-05-03] MEDS: HUMULIN 70/30 SUBQ SCH (06:22)
[2019-05-03 06:48] LABS: CALCIUM 8.8 mg/dL (8.8-10.2)
[2019-05-03] MEDS: LANOXIN PO SCH (09:20)
[2019-05-03] MEDS: COREG PO SCH ×2 (09:20→21:31)
[2019-05-03] MEDS: BIDIL PO SCH ×3 (09:21→17:10)
[2019-05-03] MEDS: DITROPAN PO SCH ×2 (09:21→21:32)
[2019-05-03] MEDS: LASIX IV SCH ×2 (09:22→21:34)
[2019-05-03] MEDS: LOKELMA POWDER PACKET PO SCH (09:22)
[2019-05-03] MEDS: ALBUMIN 25% IV SCH (09:24)
[2019-05-03] MEDS ORDERED: DOBUTAMINE 500/D5W 500 MG/250 ML IV.SOLN IV SCH (12:45)
[2019-05-03] MEDS: DOBUTAMINE 500/D5W 500 MG/250 ML IV.SOLN IV SCH (14:19)
--- NOTE | 2019-05-03 14:24 | NEPHROLOGY PROGRESS NOTE ---
DATE: 05/03/2019 SUBJECTIVE: Patient is resting in bed. No complaints overnight. He is now voiding. OBJECTIVE: Vital signs: Temperature 98 degrees, pulse 84, respiratory rate 17, blood pressure 133/65. Intake 920 mL. Output 1.7 L. General: Middle-aged gentleman sitting up in bed, in no acute distress. He is awake and alert. HEENT: He is normocephalic, atraumatic. Neck: Supple. No JVD. Cardiovascular: Regular rate and rhythm. Systolic murmur. Pulmonary: Clear bilaterally. On room air. Abdomen: Soft. Positive bowel sounds. : Voiding. Extremities: No cyanosis, clubbing, or edema. Integumentary: Skin warm and dry. LAB DATA: Hemoglobin 8.8. Sodium 141, potassium 4.0, CO2 24, creatinine 3.0 (2.6). ASSESSMENT AND PLAN: Acute overlying chronic kidney disease, likely cardiorenal syndrome. Urine output has been excellent. He is now voiding. His Lasix has been restarted and he is about 4 L negative over the weekend. Make no changes today. We will re-evaluate tomorrow to determine if we need to back off of his diuretic. He is no longer on an inotrope. He is currently on BiDil. Dictated by EMILE Siu for Delvin Pardo MD cc: Delvin Pardo MD
[2019-05-03] MEDS: TYLENOL PO PRN ×2 (14:51→21:32)
--- NOTE | 2019-05-03 16:47 | PROGRESS NOTE ---
DATE: 05/03/2019 SUBJECTIVE: Patient has no major complaints. OBJECTIVE: Blood pressure is 129/66, heart rate is 73, respiratory rate 17, temperature was afebrile.Cardiovascular: Regular rate and rhythm. Pulmonary: Bilateral breath sounds clear to auscultation. GI: Soft, nontender, nondistended. Bowel sounds are positive. LABS: White count is 8, hemoglobin and hematocrit 8.8 and 27, platelets 254,000. Basic was normal except BUN and creatinine have risen again back up to 83 and 3. ProBNP is up at 32,327. PROBLEM LIST: 1. Acute systolic heart failure exacerbation. We will continue Lasix. I am going to put him back on the dobutamine because his proBNP is going back up and his renal failure is getting worse, just to aid a little bit more in the diuresis. 2. Nephrotic syndrome due to hypertensive diabetic nephropathy. We will continue diuresis and follow, overall volume is coming off. 3. Anemia. We will continue to follow, blood counts are stable. There is no gross evidence of bleeding. 4. Type 2 diabetes is controlled on current medications. DISPOSITION: Pending clinical status. We will continue to follow closely. cc: Esdras Hurtado MD
[2019-05-03] MEDS: FLOMAX PO SCH (21:32)
[2019-05-04] MEDS: HUMULIN 70/30 SUBQ SCH (06:16)
[2019-05-04] MEDS: HUMULIN R SUBQ SCH ×4 (06:17→20:35)
[2019-05-04 07:02] LABS: HEMATOCRIT 26.9 % (42.0-52.0); MCH 29.6 PG (27-31); MCHC 33.5 g/dL (33-37); MCV 88.5 FL (81-99); MPV 10.8 FL (7.4-10.4); RBC 3.04 XMIL (4.7-6.1); RDW 13.4 % (11.5-14.5); WBC 9.38 X1000 (4.8-10.8)
[2019-05-04 08:11] LABS: CALCIUM 8.8 mg/dL (8.8-10.2); CREATININE 3.2 mg/dL (0.7-1.2); POTASSIUM 3.7 mmol/L (3.5-5.1)
[2019-05-04] MEDS: ALBUMIN 25% IV SCH (09:37)
[2019-05-04] MEDS: BIDIL PO SCH ×3 (09:39→16:34)
[2019-05-04] MEDS: DITROPAN PO SCH ×2 (09:39→20:35)
[2019-05-04] MEDS: COREG PO SCH ×3 (09:41→20:35)
[2019-05-04] MEDS: LANOXIN PO SCH ×2 (09:42→09:48)
[2019-05-04] MEDS: LASIX IV SCH ×2 (09:42→17:07)
[2019-05-04] MEDS: LOKELMA POWDER PACKET PO SCH (09:42)
--- NOTE | 2019-05-04 11:26 | Diag Imaging Result Doc PS360 ---
CHEST-PORTABLE - 05/04/2019 INDICATION: chf COMPARISON: 04/30/2019 FINDINGS: Stable left PICC line in good position. Stable cardiomegaly and diffuse pulmonary vascular congestion. Stable dense bilateral alveolar infiltrates. There are probably pleural effusions. IMPRESSION: No change from prior. Electronically signed by Tico Birch 05/04/2019 11:23 AM
[2019-05-04] MEDS ORDERED: PRILOSEC PO ONE (12:14)
--- NOTE | 2019-05-04 16:35 | PROVIDER PROGRESS NOTE ---
Progress Note Subjective: pt lying in bed awake, voices no complaints. Bulldozer Mechanic phone at bedside. Objective: temp 98.0, pulse 80, respirations 11, blood pressure 155/81, 02 sat 98% on room air. General: middle aged Lying in bed in no acute distress HEENT: normocephalic, atraumatic, pupils equal and reactive. Mucous membranes moist. Skin: warm and dry. Neck: supple,8 cm jvd with hepatojugular reflux Cardiovascular: s1s2 regular rate and rhythm, soft systolic murmurs, no gallop, enlarged PMI. Respiratory: diminished bases bilaterally Abdominal: soft, tender, non distended, bowel sounds present : non inspected, Man in place Extremities: Trace edema to BLE, right arm Trace edema. Neurologic: alert and oriented to person, place, and time. Labs: intake 720, output 1075. WBC 9.38, hemoglobin nine, hematocrit 26.9, platelet count 258, sodium 139, potassium 3.7, chloride 100, carbon dioxide 24, BUN 87, creatinine 3.2. Impression: Acute kidney injury overlying presumed chronic kidney disease. Likely cardiorenal syndrome. He is on Dobutamine gtt. Creatinine trending up. Hold lasix this AM. Blood pressure. Elevated. No changes to meds at this time. Nutrition. Improved. Ambulation. Up with assist.
--- NOTE | 2019-05-04 18:15 | GASTROENTEROLOGY CONSULTATION ---
DATE: 05/04/2019 REASON FOR CONSULT: GI bleed. HISTORY OF PRESENT ILLNESS: I had to use the telephone interpretation line with blunger. Mr. Holder is a 34-year-old [place] male could barely speak in Belgian. Mr. Holder had come to the ER on 04/24 with complaints of shortness of breath and before that, for the last 2 weeks he was having cough which was persistent, nonproductive and it was causing him to have shortness of breath and progressively it started getting worse, mostly in the night. He used to wake up multiple times and was not able to catch up with his breath. He said unless he elevated his head with the pillows he was not able to relieve his shortness of breath. He also complained that he had some edema in the lower extremities and also in his genitalia. He said he had been to the urgent care for his blood pressure and diabetes. He mentioned that even after taking the medication he could not get any relief. Before coming to the ER, he said that he passed out and fell on the bed. He could not breathe, but he denied any fever or chills. He did have shortness of breath. Currently, he is complaining of nausea, vomiting, abdominal pain, which he rates as 10/10 and the pain is sharp in the mid abdominal epigastric area. He said that he had 2 bowel movements yesterday and today he had 1 bowel movement, but he has denied noticing any blood in his stools or denied noticing any blood in his vomit. PAST MEDICAL HISTORY: Diabetes, hypertension. PAST SURGICAL HISTORY: He has a middle finger amputation on the right hand and some right shoulder surgery. FAMILY HISTORY: Mother had diabetes. SOCIAL HISTORY: He is . Has 2 kids. He was a past smoker and an alcoholic, he has having any illicit drug use. ALLERGIES: NKDA HOME MEDICATIONS : None REVIEW OF SYSTEMS: As per HPI. Otherwise, 12 point review of system is negative. PHYSICAL EXAMINATION: Vital signs: Temperature 98.1 degrees, pulse 83, respirations 13, blood pressure 159/86, oxygen saturation 98% on room air. General: He is alert and oriented x3. His Belgian is not that good, so I had to use an farm marketer, but he was answering questions appropriately and in no acute distress. HEENT: Pale conjunctivae. No icterus. PERRL. Neck: Supple. Lungs: Clear to auscultation in the anterior maynard. Cardiovascular: Regular rate and rhythm. Abdomen: Mildly distended. Mildly firm. Tender in the midepigastric area. Hypoactive bowel sounds heard in all 4 quadrants. Extremities: No clubbing. No cyanosis. No edema. Pedal pulses 2+, present bilaterally. Neurologic: He is alert and oriented x3. Nonfocal. Cranial nerves 2-12 grossly intact. LABORATORY DATA: WBCs 9.38, RBCs 3.04, hemoglobin 9.0, hematocrit 26.9, platelet count 258,000. Sodium 139, potassium 3.7, chloride 100, carbon dioxide 24, anion gap 15, BUN 87, creatinine 3.2, glucose 152, calcium 8.8. HIV virus antibody nonreactive. Chest x-ray today showed no change from the prior. Chest x-ray yesterday showed slight interval improvement. Chest CT on 04/24/2019 showed significant pericardial effusion. Small right and moderate left pleural effusion of the simple fluid density. Significant central infiltrate compatible with pulmonary edema. Healing left-sided rib fracture. IMPRESSIONS: 1. Gastrointestinal bleed. 2. Hypertension. 3. Congestive heart failure. 4. Diabetes. 5. Anemia. 6. Acute renal failure. PLAN: Mr. Holder is a 34 year old [place] male, GI has been consulted for GI bleed. His H & H is 9.0- and 26.9, we plan to do an EGD tomorrow to find out the cause of his GI bleed. Currently, Nephrology and Cardiology is following the patient. Patient is on GI prophylaxis Prilosec 40 mg. The patient has denied any blood in his stools or in his vomit. We will continue to monitor the patient's CBC, BMP and follow the plan of care per PCP, cabinet installer and nephrologists. Further plan of care will be based on EGD findings. Discussed the risks, benefits and alternatives of the procedure, patient acknowledges understanding of the plan of care. This plan was discussed with Dr. Archer. Thank you for your consult. Please call us for any further questions or concerns. Dictated by EMILE Romero for Alondra Archer MD cc: Alondra Archer MD [facility]
[2019-05-04] MEDS: FLOMAX PO SCH (20:35)
[2019-05-05] MEDS: LASIX IV SCH ×3 (02:28→17:14)
[2019-05-05] MEDS: HUMULIN 70/30 SUBQ SCH (06:09)
[2019-05-05] MEDS: HUMULIN R SUBQ SCH ×4 (06:09→20:39)
[2019-05-05] MEDS ORDERED: DIPRIVAN 1% ONE (06:20)
[2019-05-05 06:43] LABS: HEMATOCRIT 26.6 % (42.0-52.0); HEMOGLOBIN 8.9 g/dL (14.0-18.0); MCH 29.9 PG (27-31); MCHC 33.5 g/dL (33-37); MCV 89.3 FL (81-99); MPV 10.9 FL (7.4-10.4); RBC 2.98 XMIL (4.7-6.1); RDW 13.7 % (11.5-14.5); WBC 9.81 X1000 (4.8-10.8)
[2019-05-05] MEDS ORDERED: PRILOSEC PO SCH (07:00)
[2019-05-05 07:07] LABS: CALCIUM 8.5 mg/dL (8.8-10.2)
[2019-05-05 07:10] LABS: ALB/GLOB RATIO 2.6; ALBUMIN 3.6 g/dL (3.5-5.0); DIRECT BILIRUBIN 0.1 mg/dL (0.00-0.20); TOTAL BILIRUBIN 0.35 mg/dL (0.20-1.00)
[2019-05-05] MEDS ORDERED: VERSED ONE (07:49)
[2019-05-05] MEDS ORDERED: XYLOCAINE-MPF 2% ONE (07:51)
--- NOTE | 2019-05-05 08:37 | Diag Imaging Result Doc PS360 ---
US GB < RUQ (LIMITED) - 05/05/2019 INDICATION: abdominal pain TECHNIQUE: COMPARISON: 04/25/2019 FINDINGS: There is trace ascites about the liver. The pancreas is obscured. The liver, gallbladder, and right kidney are normal. Common bile duct measures 2.7 mm. Aorta, IVC, and main portal vein are patent. IMPRESSION: Trace ascites. Otherwise unremarkable. Electronically signed by Tico Birch 05/05/2019 8:34 AM
--- NOTE | 2019-05-05 08:42 | ENDOSCOPY OPERATIVE NOTE ---
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 PROCEDURE PERFORMED: EGD, diagnostic MEDICATIONS: Per Anesthesia TOPICAL ANESTHETIC: none CONSENT: The patient understands the risks and benefits of the procedure and understands that these r isks include, but are not limited to: sedation, allergic reaction, infection, perforation and/or bleeding. Alternative means of evaluation and treatment include, among others: physical exam, x-rays, and/or surgical intervention. The patient elects to proceed with this endoscopic procedure. HISORY AND PHYSICAL: 05/05/2019 DESCRIPTION OF PROCEDURE: During intra-op preparation period all mechanical and medical equipment was checked for proper function. Hand hygiene and appropriate measures for infection prevention was taken. After the risks, benefits and alternatives of the procedure were thoroughly explained, Informed consent was verified, confirmed and timeout was successfully executed by the treatment team. The patient was anesthetized with topical anesthesia and the [id number]-[id number] ([id number]) endoscope was introduced through the mouth and advanced to the second portion of the duoden um. Retroflexion was performed in the stomach and revealed retained food. The gastroscope was then slowly withdrawn a nd removed. ESOPHAGUS: The mucosa of the esophagus appeared normal. The z-line was noted at 40cm from the incis ors. The z-line appeared normal. STOMACH: Copious amount of retained food suggestive of gastroparesis. No stigmata of recent bleeding . Unable to entirely clear fundus or antrum. DUODENUM: The duodenum was normal. SPECIMENS REMOVED: No ADVERSE EVENTS: There were no complications. POSTOPERATIVE DIAGNOSIS: 1. The mucosa of the esophagus appeared normal 2. The z-line was noted at 40cm from the incisors 3. Copious amount of retained food suggestive of gastroparesis. No stigmata of recent bleeding. Un able to entirely clear fundus or antrum 4. The duodenum was normal RECOMMENDATIONS: Clear liquid diet Antiemetics prn PPI PO once daily Continue to trend H/H, transfuse as needed for hgb 7-8 Outpatient gastric emptying study when acute issues resolve Prep with 4L golytely for diagnostic EGD/colonoscopy tomorrow NPO at [place] Will follow with you REPEAT EXAM: Alvin Lackey MD eSigned: Alvin Lackey MD 05/05/2019 8:41 AM cc: PATIENT NAME: Marv Mcclendon MR#: [id number]
[2019-05-05] MEDS: ALBUMIN 25% IV SCH (10:13)
[2019-05-05] MEDS: BIDIL PO SCH ×3 (10:23→17:13)
[2019-05-05] MEDS: COREG PO SCH ×2 (10:23→20:39)
[2019-05-05] MEDS: LANOXIN PO SCH (10:24)
[2019-05-05] MEDS: DITROPAN PO SCH ×2 (10:24→20:39)
[2019-05-05] MEDS: LOKELMA POWDER PACKET PO SCH (10:24)
--- NOTE | 2019-05-05 13:21 | PROVIDER PROGRESS NOTE ---
Progress Note Subjective: pt lying in bed awake, voices abdominal pain is better than it was yesterday evening. 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 Objective: vitals. Temperature 98.6, pulse 85, respirations 14, blood pressure 146/74, 02 sat 97% on room air. General: middle aged Lying in bed in no acute distress HEENT: normocephalic, atraumatic, pupils equal and reactive. Mucous membranes moist. Skin: warm and dry. Neck: supple,8 cm jvd with hepatojugular reflux Cardiovascular: s1s2 regular rate and rhythm, soft systolic murmur with a gallop, enlarged PMI. Respiratory: diminished bases bilaterally Abdominal: soft, tender, non distended, bowel sounds present : non inspected, Man in place Extremities: Trace edema to BLE. No clubbing or cyanosis. Neurologic: alert and oriented to person, place, and time. Labs: WBC 9.81, hemoglobin 8.9, hematocrit 26.6, platelet count 268, sodium 139, potassium 4.0, chloride 100, carbon dioxide 23, BUN 94, creatinine 3.0. Intake 543, output 975 Impression: Acute kidney injury overlying presumed chronic kidney disease. Likely cardiorenal syndrome. He remains on dobutamine. Creatinine is stabilizing. No changes. Blood pressure. In target. Nutrition. NPO at the moment for procedures. Ambulation. Up with assist. Medication review. Was started on a lower dose of lasix yesterday.
[2019-05-05] MEDS ORDERED: GOLYTELY PO ONE ×2 (14:00→16:00)
[2019-05-05] MEDS: DOBUTAMINE 500/D5W 500 MG/250 ML IV.SOLN IV SCH (15:02)
[2019-05-05] MEDS: FLOMAX PO SCH (20:39)
[2019-05-06] MEDS: LASIX IV SCH ×3 (01:19→17:07)
[2019-05-06] MEDS: PROTONIX PO SCH (06:01)
[2019-05-06] MEDS: HUMULIN 70/30 SUBQ SCH (06:20)
[2019-05-06] MEDS: HUMULIN R SUBQ SCH ×4 (06:20→20:37)
[2019-05-06 06:38] LABS: HEMATOCRIT 26.4 % (42.0-52.0); HEMOGLOBIN 8.8 g/dL (14.0-18.0); MCH 29.4 PG (27-31); MCHC 33.3 g/dL (33-37); MCV 88.3 FL (81-99); MPV 10.9 FL (7.4-10.4); RBC 2.99 XMIL (4.7-6.1); RDW 13.6 % (11.5-14.5); WBC 9.91 X1000 (4.8-10.8)
[2019-05-06] MEDS ORDERED: XYLOCAINE-MPF 2% ONE (07:03)
[2019-05-06] MEDS ORDERED: DIPRIVAN 1% ONE (07:04)
[2019-05-06 07:22] LABS: CALCIUM 8.7 mg/dL (8.8-10.2); CREATININE 2.9 mg/dL (0.7-1.2); POTASSIUM 4.1 mmol/L (3.5-5.1)
--- NOTE | 2019-05-06 08:33 | ENDOSCOPY OPERATIVE NOTE ---
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 PROCEDURE PERFORMED: EGD, diagnostic MEDICATIONS: Per Anesthesia TOPICAL ANESTHETIC: none CONSENT: The patient understands the risks and benefits of the procedure and understands that these r isks include, but are not limited to: sedation, allergic reaction, infection, perforation and/or bleeding. Alternative means of evaluation and treatment include, among others: physical exam, x-rays, and/or surgical intervention. The patient elects to proceed with this endoscopic procedure. HISORY AND PHYSICAL: 05/06/2019 DESCRIPTION OF PROCEDURE: During intra-op preparation period all mechanical and medical equipment was checked for proper function. Hand hygiene and appropriate measures for infection prevention was taken. After the risks, benefits and alternatives of the procedure were thoroughly explained, Informed consent was verified, confirmed and timeout was successfully executed by the treatment team. The patient was anesthetized with topical anesthesia and the [id number]-[id number] ([id number]) and [id number] ([id number]) endoscope was introduced through the mouth and advanced to the seco nd portion of the duodenum. Retroflexion was performed in the stomach and revealed no abnormalities. The gastroscope was then slowly withdrawn and removed. ESOPHAGUS: The mucosa of the esophagus appeared normal. STOMACH: There was a small amount of residual food in the gastric body and gastric antrum. Based on this, I suspect the patient has some level of gastroparesis. DUODENUM: The duodenum was normal. SPECIMENS REMOVED: No ADVERSE EVENTS: There were no complications. POSTOPERATIVE DIAGNOSIS: 1. The mucosa of the esophagus appeared normal 2. Food residue in the gastric body and gastric antrum 3. The duodenum was normal RECOMMENDATIONS: Continue to colonoscopy procedure REPEAT EXAM: Alvin Lackey MD eSigned: Alvin Lackey MD 05/06/2019 8:33 AM cc: PATIENT NAME: Glory Espinoza Gilberto MR#: [id number]
--- NOTE | 2019-05-06 08:47 | ENDOSCOPY OPERATIVE NOTE ---
[facility] ENDOSCOPY OPERATIVE NOTE , PATIENT: Marv Mcclendon ADM DATE: 05/06/2019 MR #: [id number] : 1985 COLONOSCOPY PROCEDURE REPORT PROCEDURE DATE: 05/06/2019 SURGEON: Alvin Lackey MD STATUS: inpatient ART GILDER: PREOPERATIVE DIAGNOSIS: The patient is a 34 yr old male here for a colonoscopy due to anemia, non-sp ecific. PROCEDURE PERFORMED: Colonoscopy, diagnostic MEDICATIONS: Per Anesthesia PREP TYPE: GoLytely
[2019-05-06] MEDS: DITROPAN PO SCH ×2 (09:48→20:38)
[2019-05-06] MEDS: COREG PO SCH ×2 (09:48→20:38)
[2019-05-06] MEDS: LANOXIN PO SCH (09:48)
[2019-05-06] MEDS: ALBUMIN 25% IV SCH (09:48)
[2019-05-06] MEDS: BIDIL PO SCH ×3 (09:48→17:06)
[2019-05-06] MEDS: LOKELMA POWDER PACKET PO SCH (09:48)
--- NOTE | 2019-05-06 10:44 | PROGRESS NOTE ---
DATE: 05/06/2019 SUBJECTIVE: Patient has no major complaints. OBJECTIVE: Blood pressure 167/88, heart rate 82, respiratory rate 11, temperature 97.6 degrees.Cardiovascular: Regular rate and rhythm. Pulmonary: Bilateral breath sounds. Clear to auscultation. GI: Soft, nontender, nondistended. Bowel sounds are positive. The blood pressure 167/88, heart rate 82, respiratory rate 11. Temperature 97.6 degrees. Cardiovascular: Regular rhythm. Pulmonary: Bilateral breath sounds diminished at bases. GI: Was soft, nontender, nondistended. Bowel sounds are positive. Peripheral edema trace. LABORATORY: White count 9, hemoglobin and hematocrit 8.9 and 26.6, platelets 268,000 creatinine up to 3, BUN 94, glucose 214. PROBLEM LIST: 1. Acute systolic heart failure exacerbation, still on dobutamine. We will continue for another 24 hours. Continue Lasix. 2. Nephrotic syndrome related to diabetic and hypertensive nephropathy. We will continue to monitor. Continue albumin. Has not progressed likely of chronic inflammation. We will continue to monitor hemoglobin and hematocrit. 3. Diabetes is overall under good control. 4. GI - EGD showed retained food particles consistent with gastroparesis; he will need a gastric emptying study when available: GI is following. DISPOSITION: Pending clinical status. cc: Esdras Hurtado MD [facility]
--- NOTE | 2019-05-06 11:02 | PROGRESS NOTE ---
DATE: 05/06/2019 SUBJECTIVE: The patient reports feeling fine. Denies any chest pain. No shortness of breath. OBJECTIVE: Vital Signs: Temperature 98.3 degrees, heart rate 81, respiratory rate 18, blood pressure 142/78, O2 sat 97% on 2 L nasal cannula. General: This is a 34-year-old male . Cardiovascular: S1, S2 heard. No murmurs. Regular rate and rhythm. Respiratory: Clear bilaterally to auscultation. No work of breathing or using accessory muscles. Abdomen: Soft. No work of breathing or using accessory muscles. Abdomen: Soft, nondistended, nontender to palpation. Bowel sounds present. No organomegaly. Extremities: No clubbing, cyanosis, or edema. Peripheral pulse is present in both legs. Neurological: The patient is alert and oriented x3. Moves all 4 extremities. LABORATORY DATA: Reviewed. ASSESSMENT AND PLAN: 1. Acute systolic congestive heart failure. The patient is on Lasix. The patient is on dobutamine back as per Cardiology. Will continue to monitor. 2. Nephrotic syndrome due to hypertensive diabetic nephropathy. Dr. Pardo from Nephrology is following this patient. Will follow recommendations. 3. Anemia. Will continue to monitor CBC. There is no gross evidence of bleeding. 4. Diabetes mellitus type 2. Will continue with current medications. 5. Disposition. Following lead from Cardiology and Nephrology. cc: Quinton Brizuela MD [facility]TDD
--- NOTE | 2019-05-06 11:59 | PROVIDER PROGRESS NOTE ---
Progress Note Subjective: pt lying in bed awake, Eating cereal. His colonoscopy was canceled because he ate. Objective: VSS. NAD General: middle aged Lying in bed in no acute distress HEENT: normocephalic, atraumatic, pupils equal and reactive. Mucous membranes moist. Skin: warm and dry. Neck: supple,8 cm jvd with hepatojugular reflux Cardiovascular: s1s2 regular rate and rhythm, soft systolic murmur with a gallop, enlarged PMI. Respiratory: diminished bases bilaterally Abdominal: soft, tender, non distended, bowel sounds present : non inspected, Man in place Extremities: ++ edema to BLE. No clubbing or cyanosis. Neurologic: alert and oriented to person, place, and time. Labs: WBC 9.81, hemoglobin 8.9, hematocrit 26.6, platelet count 268, sodium 139, potassium 4.0, chloride 100, carbon dioxide 23, BUN 94, creatinine 3.0. Intake 543, output 975 Impression: Acute kidney injury overlying presumed chronic kidney disease. Likely ca rdiorenal syndrome. He remains on dobutamine. No improvement. No changes. Blood pressure. In target. Nutrition. No changes. Eating. Ambulation. Up with assist. Medication review. No changes.
[2019-05-06] MEDS: FLOMAX PO SCH (20:38)
[2019-05-07] MEDS: HUMULIN R SUBQ SCH ×4 (06:03→20:52)
[2019-05-07] MEDS: PROTONIX PO SCH (06:12)
[2019-05-07] MEDS: HUMULIN 70/30 SUBQ SCH (06:12)
[2019-05-07] MEDS: LANOXIN PO SCH (08:13)
[2019-05-07] MEDS: COREG PO SCH ×2 (08:14→20:53)
[2019-05-07] MEDS: DITROPAN PO SCH ×2 (08:14→20:54)
[2019-05-07] MEDS: LOKELMA POWDER PACKET PO SCH (08:14)
[2019-05-07] MEDS: BIDIL PO SCH ×3 (08:14→18:16)
[2019-05-07] MEDS: ALBUMIN 25% IV SCH (08:16)
[2019-05-07] MEDS ORDERED: LASIX PO SCH (09:00)
[2019-05-07 09:15] LABS: BASO# 0.05 X1000 (0.0-0.2); BASO% 0.5 % (0.0-0.8); EOS# 0.51 X1000 (0.0-0.7); EOS% 4.9 % (0.0-10.0); HEMATOCRIT 26.6 % (42.0-52.0); HEMOGLOBIN 8.6 g/dL (14.0-18.0); LYMPH# 1.17 X1000 (1.2-3.4); LYMPH% 11.3 % (20.5-51.1); MCH 28.7 PG (27-31); MCHC 32.3 g/dL (33-37); MCV 88.7 FL (81-99); MONO# 0.82 X1000 (0.11-0.59); MONO% 7.9 % (1.7-9.3); MPV 10.5 FL (7.4-10.4); NEUT# 7.77 X1000 (1.4-6.5); NEUT% 75.4 % (42.2-75.2); PLT 266 X1000 (130-400); RDW 13.9 % (11.5-14.5); WBC 10.32 X1000 (4.8-10.8)
[2019-05-07 09:58] LABS: ALBUMIN 4.4 g/dL (3.5-5.0); CALCIUM 8.8 mg/dL (8.8-10.2); CREATININE 3.3 mg/dL (0.7-1.2); PHOSPHORUS 4.8 mg/dL (2.7-4.5)
--- NOTE | 2019-05-07 11:58 | PROGRESS NOTE ---
DATE: 05/07/2019 SUBJECTIVE: The patient reports feeling fine. Denies any difficulty in breathing or chest pain. OBJECTIVE: Vital Signs: Temperature 97.8 degrees, heart rate 79, respiratory rate 17, blood pressure 155/74, O2 saturation 97% on room air. General: This is a chronically ill-appearing, 34- year-old, male, lying in bed in no acute distress. Cardiovascular: S1, S2 heard. No murmurs, gallops, or rubs. Regular rate and rhythm. Respiratory: Minimal crackles in both pulmonary bases. Patient not using any accessory muscles or having work of breathing. Abdomen: Soft, nontender to palpation. Bowel sounds present. No organomegaly. Extremities: No clubbing, cyanosis, or edema. Peripheral pulses present in both legs. Neurological: The patient is alert and oriented x3. Moves all 4 extremities. LABORATORY DATA: White cell count 10.32, hemoglobin 8.6, hematocrit 26.6, platelets 266,000. Sodium 135, creatinine 3.3. BMP was checked 3 days ago and was 32,000. ASSESSMENT AND PLAN: 1. Acute systolic congestive heart failure. The patient continues to be on Lasix and dobutamine. Cardiology is following this patient. Clinically, this patient is breathing better. Currently, he is on room air. At this point, will continue to monitor. 2. Chronic kidney disease. Dr. Pardo from Nephrology is following this patient. They are suspecting cardiorenal syndrome. Creatinine continues to be between 2.[address] Pardo from Nephrology is following this patient. Will follow recommendations. 3. Anemia of chronic disease. Will continue to monitor this patient closely. CBC is going to be checked daily. 4. Diabetes mellitus type 2. Will continue with the current medications. 5. Abdominal pain. The patient underwent colonoscopy and endoscopy with results already noted. Will continue to monitor. cc: Quinton Brizuela MD
--- NOTE | 2019-05-07 13:47 | PROVIDER PROGRESS NOTE ---
Progress Note S: No acute overnight events. Patient denies N/V, abdominal pain, rectal bleeding, or melena. He says that his abdominal pain has improved significantly. O: Last Vital Signs Temp 98.2 F 05/07/19 13:03 Pulse 80 05/07/19 13:03 Resp 17 05/07/19 13:03 BP 135/67 05/07/19 13:03 Pulse Ox 94 L 05/07/19 13:03 Height 5 ft 1 in Weight 137 lb 8 oz GEN: awake, alert, NAD HEENT: anicteric, MMM NECK: supple CARDIAC: RRR, no murmurs PULM: CTAB, no wheezing ABD: soft NT/ND, NABS EXT: WWP NEURO: nonfocal LABS: 05/07/19 05/07/19 09:06 09:06 WBC 10.32 Hgb 8.6 L Plt Count 266 Sodium 135 L Potassium 4.0 Chloride 95 L Carbon Dioxide 24 L Anion Gap 16 BUN 94 H Creatinine 3.3 H Glucose 182 H EGD/COLON 05/06 Retained gastric contents consistent with gastroparesis. Normal colonoscopy A/P: Mr. Marv Espinoza is a 34 year old man with history of CHF, IDDM2, and CKD who presented to GI service with worsening anemia. EGD and colonoscopy were unrevealing for etiology. He is not having any overt GI bleed at this time. His anemia is likely from chronic disease. Recommend small,frequent low fat meals for suspected gastroparesis and antiemetics prn. Prefer zofran and phenergan over reglan given side effect profile. # Anemia # Suspected gastroparesis # IDDM2 # CHF # CKD Will sign off. Please call with questions
[2019-05-07] MEDS ORDERED: MILRINONE IV ONE (17:30)
--- NOTE | 2019-05-07 17:45 | PROGRESS NOTE ---
DATE: 05/07/2019 SUBJECTIVE: Patient denies shortness of breath on room air. He has ambulated some without lightheadedness. There has been no chest pain. OBJECTIVE: Vital Signs: Blood pressure 144/73, heart rate 81, oxygen saturation 96% on room air. Neck: Jugular venous distention is present, consistent with significantly elevated central venous pressure. Chest: Chest is clear to auscultation bilaterally. Cardiac: Exam reveals a regular rate and rhythm without appreciable murmur or gallop. Extremities: Demonstrate mild to moderate pretibial edema. LABORATORY DATA: Includes a white blood cell count of 10.32, hematocrit 26.6, hemoglobin 8.6, platelet count 266,000. Sodium 135, potassium 4.0, chloride 95, carbon dioxide 24, BUN 94, creatinine 3.3. Glucose 182. IMPRESSION: 1. Acute on chronic systolic heart failure, biventricular but worse on right side. Patient appears to be drifting back into heart failure and with associated cardiorenal syndrome. 2. Severe cardiomyopathy with severely reduced left ventricular systolic function. 3. Acute on chronic renal dysfunction. Suspect significant cardiorenal syndrome. 4. Diabetes mellitus. RECOMMENDATIONS: 1. Discontinue oral Lasix. 2. Start IV Lasix again. 3. Add intravenous Primacor for inotrope. cc: Danie Anna MD
[2019-05-07] MEDS: PRIMACOR 20 MG/D5W 100 ML 20 MG/100 ML IVPB IV SCH (18:16)
[2019-05-07] MEDS: FLOMAX PO SCH (20:53)
[2019-05-07] MEDS: LASIX IV SCH (20:54)
[2019-05-07] MEDS ORDERED: G.I. COCKTAIL PO ONE (21:17)
[2019-05-07] MEDS ORDERED: MORPHINE IV ONE (21:17)
--- NOTE | 2019-05-07 22:07 | EKG Report ---
Test Performed on : 05/07/2019 9:20:55 PM Test Reason : chest pain Blood Pressure : / mmHG Vent. Rate : 087 BPM Atrial Rate : 087 BPM P-R Int : 142 ms QRS Dur : 088 ms QT Int : 374 ms P-R-T Axes : 027 -25 073 degrees QTc Int : 450 ms Normal sinus rhythm. Possible Left atrial enlargement Borderline ECG When compared with ECG of 25-APR-2019 06:38, T wave inversion no longer evident in Anterolateral leads Confirmed by Manoj ROGERS, P.J.M ([id number]) on 05/08/2019 2:57:21 PM
[2019-05-08 06:18] LABS: ALBUMIN 3.9 g/dL (3.5-5.0); CALCIUM 8.9 mg/dL (8.8-10.2); CREATININE 3.9 mg/dL (0.7-1.2); PHOSPHORUS 5.7 mg/dL (2.7-4.5); POTASSIUM 3.9 mmol/L (3.5-5.1)
[2019-05-08] MEDS: PROTONIX PO SCH (06:36)
[2019-05-08] MEDS: HUMULIN 70/30 SUBQ SCH (06:37)
[2019-05-08] MEDS: HUMULIN R SUBQ SCH ×4 (06:39→21:07)
[2019-05-08 07:14] LABS: BASO# 0.05 X1000 (0.0-0.2); BASO% 0.5 % (0.0-0.8); EOS# 0.44 X1000 (0.0-0.7); EOS% 4.7 % (0.0-10.0); HEMATOCRIT 26.7 % (42.0-52.0); HEMOGLOBIN 8.7 g/dL (14.0-18.0); LYMPH# 0.97 X1000 (1.2-3.4); LYMPH% 10.4 % (20.5-51.1); MCHC 32.6 g/dL (33-37); MONO% 8.5 % (1.7-9.3); MPV 11.4 FL (7.4-10.4); NEUT# 7.11 X1000 (1.4-6.5); NEUT% 75.9 % (42.2-75.2); PLT 262 X1000 (130-400); RDW 13.4 % (11.5-14.5); WBC 9.37 X1000 (4.8-10.8)
[2019-05-08] MEDS: PRIMACOR 20 MG/D5W 100 ML 20 MG/100 ML IVPB IV SCH ×2 (07:54→19:42)
[2019-05-08] MEDS: BIDIL PO SCH ×3 (08:00→17:25)
[2019-05-08] MEDS: LANOXIN PO SCH (08:00)
[2019-05-08] MEDS: DITROPAN PO SCH ×2 (08:00→20:48)
[2019-05-08] MEDS: COREG PO SCH (08:01)
[2019-05-08] MEDS: LASIX IV SCH ×2 (08:02→20:48)
[2019-05-08] MEDS: ALBUMIN 25% IV SCH (08:03)
[2019-05-08] MEDS ORDERED: TUMS EXTRA STRENGTH PO PRN (09:12)
--- NOTE | 2019-05-08 10:08 | PROGRESS NOTE ---
DATE: 05/08/2019 SUBJECTIVE: The patient reports epigastric pain last night and he received a GI cocktail and morphine and the pain got better. Upon my examination, he is not complaining of any pain. OBJECTIVE: Vital Signs: Temperature 96.6 degrees, heart rate 76, respiratory rate 14, blood pressure 119/63, O2 saturation 97% on room air. General: This is a chronically ill-appearing 34-year-old male lying in bed in no acute distress. Cardiovascular: S1, S2 heard. No murmurs, gallops, or rubs. Regular rate and rhythm. Respiratory: Minimal crackles in both pulmonary bases. Patient not using any accessory muscles or having work of breathing. Abdomen: Soft. Nontender to palpation. Bowel sounds present. No organomegaly. Extremities: No clubbing, cyanosis. Edema in both lower extremities 2+. Peripheral pulses present in both legs. Neurologic: The patient is alert and oriented x3. Moves 4 extremities. LABORATORY DATA: Reviewed. ASSESSMENT AND PLAN: 1. Acute congestive systolic heart failure. The patient has been on Lasix p.o. but he has some pain improving as we were expecting, so we will change the Lasix IV. Cardiology has started this patient on Primacor. We will continue with the same management. 2. Chronic kidney disease/cardiorenal syndrome. Dr. Pardo from Nephrology is following this patient. Creatinine has increased to 3.6 from 3.1 yesterday. We will follow recommendations from Nephrology. 3. Anemia of chronic disease, stable. We will continue to monitor this patient closely. 4. Diabetes mellitus type 2. We will continue with the current medication. 5. Abdominal pain, resolved but he started complaining of abdominal pain last night. At this point, we are going to continue with Protonix and Tums. We will monitor this patient closely. cc: Quinton [facility]uel[facility]
[2019-05-08] MEDS: LOKELMA POWDER PACKET PO SCH ×2 (10:17→10:21)
[2019-05-08] MEDS: REGLAN PO SCH ×2 (13:29→20:49)
--- NOTE | 2019-05-08 15:10 | NEPHROLOGY PROGRESS NOTE ---
DATE: 05/08/2019 SUBJECTIVE: He is sitting up on the side of the bed eating his lunch. Denies chest pain, shortness of breath. OBJECTIVE: Vital Signs: Blood pressure 87/48, heart rate 60, respirations 14, afebrile. General: No acute distress. Skin: Warm and dry. Neck: Neck veins are distended. Heart: Regular with murmur. Lungs: Equal with scattered crackles. Abdomen: Soft, nontender. Bowel sounds present. Extremities: With 2+ edema. No clubbing or cyanosis. IMPRESSION: 1. Acute kidney injury. 2. Cardiorenal syndrome presumably. BUN and creatinine are rising again, as his vasopressor and inotropic support have been discontinued. He is on Lasix 40 mg twice daily, which I think is acceptable. Milrinone was added today. We will observe his response over the weekend. cc: Delvin Pardo MD
[2019-05-08] MEDS ORDERED: ZAROXOLYN PO ONE (15:33)
--- NOTE | 2019-05-08 15:48 | PROGRESS NOTE ---
DATE: 05/08/2019 SUBJECTIVE: Patient denies chest discomfort or shortness of breath on room air. He diuresed only modestly since yesterday. Additionally, he had extra food brought in by family in the form with chicken tacos which he states were very good. OBJECTIVE: Vital Signs: Blood pressure 120/60, heart rate 76, oxygen saturation 97% on room air. HEENT: Jugular venous distention is discerned which suggests elevated central venous pressure. Chest: Clear to auscultation bilaterally. Cardiac: Reveals a regular rate and rhythm without appreciable murmur or gallop. Extremities: Demonstrate moderate pretibial edema. LABORATORY DATA: Includes a white blood cell count 9.37, hematocrit 26.7, hemoglobin 8.7, platelet count 262,000. Sodium 136 potassium 3.9, chloride 96, carbon dioxide 23, BUN 103, creatinine 3.9. Glucose 173. IMPRESSION: 1. Acute on chronic systolic heart failure, biventricular. He has a significant degree of right- sided congestive heart failure presently with associated cardiorenal syndrome. Efforts to diurese in the last 24 hours have met with limited success. 2. Severe cardiomyopathy with severely reduced left ventricular systolic function. 3. Acute on chronic renal dysfunction. Suspect cardiorenal syndrome. 4. Diabetes mellitus. RECOMMENDATIONS: 1. Continue IV milrinone for inotrope. 2. Increase IV Lasix to 80 mg IV q. 12 hours. 3. Patient advised to avoid extra salt intake. cc: Danie Anna MD
[2019-05-08] MEDS: FLOMAX PO SCH (20:48)
[2019-05-09] MEDS: REGLAN PO SCH ×2 (01:49→08:41)
[2019-05-09] MEDS: HUMULIN R SUBQ SCH ×4 (06:35→20:29)
[2019-05-09] MEDS: PROTONIX PO SCH ×2 (06:40→20:43)
[2019-05-09 06:45] LABS: BASO# 0.03 X1000 (0.0-0.2); BASO% 0.4 % (0.0-0.8); EOS# 0.17 X1000 (0.0-0.7); HEMATOCRIT 24.7 % (42.0-52.0); IMM GRAN# 0.02 X1000 (0.0-0.04); IMM GRAN% 0.2 % (0.0-0.5); LYMPH# 0.67 X1000 (1.2-3.4); LYMPH% 7.8 % (20.5-51.1); MCH 28.3 PG (27-31); MCHC 32.4 g/dL (33-37); MCV 87.3 FL (81-99); MONO# 0.54 X1000 (0.11-0.59); MONO% 6.3 % (1.7-9.3); MPV 11.4 FL (7.4-10.4); NEUT# 7.11 X1000 (1.4-6.5); NEUT% 83.3 % (42.2-75.2); PLT 274 X1000 (130-400); RBC 2.83 XMIL (4.7-6.1); RDW 13.1 % (11.5-14.5); WBC 8.54 X1000 (4.8-10.8)
[2019-05-09] MEDS: HUMULIN 70/30 SUBQ SCH (07:07)
[2019-05-09 07:13] LABS: ALBUMIN 3.7 g/dL (3.5-5.0); CALCIUM 8.6 mg/dL (8.8-10.2); CREATININE 5.1 mg/dL (0.7-1.2); PHOSPHORUS 6.2 mg/dL (2.7-4.5); POTASSIUM 4.1 mmol/L (3.5-5.1)
[2019-05-09] MEDS: DITROPAN PO SCH ×2 (08:41→20:42)
[2019-05-09] MEDS: BIDIL PO SCH ×3 (08:41→16:42)
[2019-05-09] MEDS: LASIX IV SCH ×2 (08:41→20:41)
[2019-05-09] MEDS: LANOXIN PO SCH (08:41)
--- NOTE | 2019-05-09 09:29 | Diag Imaging Result Doc PS360 ---
EXAM: CHEST-2 VIEWS - 05/09/2019 HISTORY: pulmonary edema TECHNIQUE: Chest two views COMPARISON: 05/04/2019 portable chest FINDINGS: PICC remains in place. There is stable cardiomegaly. There are bibasilar infiltrates and bilateral pleural effusions similar to prior. There has been apparent decrease in perihilar edema. There is no evidence of pneumothorax. There are subacute to chronic left rib fracture deformities noted. IMPRESSION: Bibasilar infiltrates and bilateral pleural effusions similar to prior. Apparent decrease in perihilar edema. Electronically signed by Andrew Esposito 05/09/2019 9:26 AM
[2019-05-09] MEDS: ALBUMIN 25% IV SCH (10:23)
[2019-05-09] MEDS: COREG PO SCH ×2 (10:23→20:42)
--- NOTE | 2019-05-09 10:53 | PROGRESS NOTE ---
DATE: 05/09/2019 SUBJECTIVE: Patient reports epigastric pain continues to bothers him. Denies any other complaint. No chest pressure. No palpitations. OBJECTIVE: Vital Signs: Temperature 98.5 degrees, heart rate 73, respiratory rate 12, blood pressure 131/64, O2 saturation 95% on room air. General: This is a chronically ill-appearing 34-year-old male lying in bed in no acute distress. Cardiovascular: S1, S2 heard. No murmurs, gallops, or rubs. Regular rate and rhythm. Respiratory: Minimal crackles noted in both pulmonary bases. Patient not using any accessory muscles or having work of breathing. Abdomen: Soft, nontender to palpation. Bowel sounds present. No organomegaly. Extremities: No clubbing, cyanosis, but edema 2+ in both lower extremities. Peripheral pulses present in both legs. Neurological: Patient is alert and oriented x3. Moves 4 extremities. LABORATORY DATA: Reviewed. ASSESSMENT AND PLAN: 1. Acute congestive systolic heart failure. The patient has been on Lasix in the last few days by mouth, but changed to IV by Cardiology. That dose has been increased to 80 mg IV q.12 hours because patient continues to need to be diuresed. Also, patient has been started on Primacor daily, too. That medication will continue with the same management. 2. Chronic kidney disease/cardiorenal syndrome. Creatinine continues to get worse. Two days ago was 3.3, yesterday was 3.9 and today is 5.1. Apparently patient continues to make urine. So, at this point, will follow recommendations from Nephrology. 3. Anemia of chronic disease. Hemoglobin is stable. Will continue to monitor CBC daily. 4. Diabetes mellitus type 2. Will continue with sliding scale insulin and Accu-Chek before meals and also at bedtime. 5. Epigastric pain. The patient continues to report epigastric pain. So far patient has being seen and scoped with endoscopy and colonoscopy by Dr. Lackey. At this time, what I am planning to do is increase the dose of Protonix to 40 mg p.o. b.i.d. and will increase the dose of Reglan to 5 mg IV q.6 hours for possible gastroparesis. Will continue to monitor this patient closely. cc: Quinton Brizuela MD
[2019-05-09] MEDS: PRIMACOR 20 MG/D5W 100 ML 20 MG/100 ML IVPB IV SCH (11:10)
[2019-05-09] MEDS: REGLAN IV SCH ×3 (11:11→21:50)
--- NOTE | 2019-05-09 11:24 | CARDIOLOGY PROGRESS NOTE ---
DATE: 05/09/2019 CHIEF COMPLAINT: Swelling, abdominal discomfort. SUBJECTIVE: Mr. Holder continues to complain of epigastric discomfort. He was nauseous, and he vomited. Otherwise, no major changes in status. He is still on IV milrinone. OBJECTIVE: Vital signs: Blood pressure is 140/71, temperature 97.6, pulse 87, respirations 11. Awake, oriented, in no distress. Chronically ill. HEENT unremarkable. Chest: Diminished breath sounds at bases. Heart sounds are regular and rhythmic. I do not hear any obvious gallop or murmur. His abdomen is tender in the epigastric area. Bowel sounds diminished. Neurologic: Follows commands. Moves all 4 extremities. He does have edema 1 to 2 plus in the legs. IMPRESSION: 1. The patient has severe dilated cardiomyopathy with acute on chronic systolic heart failure. 2. Acute on chronic renal failure. This is likely to be a cardiorenal syndrome. 3. Diabetes mellitus with multiorgan involvement. RECOMMENDATIONS: At this time, we will continue with supportive measures. Unfortunately, his prognosis is really rather poor. We will continue to follow him. cc: Ovi Schaeffer MD
[2019-05-09] MEDS: TYLENOL PO PRN (20:42)
[2019-05-09] MEDS: FLOMAX PO SCH (20:42)
[2019-05-10] MEDS: TYLENOL PO PRN (04:09)
[2019-05-10] MEDS: REGLAN IV SCH ×3 (04:43→15:29)
[2019-05-10] MEDS: HUMULIN R SUBQ SCH ×4 (06:13→22:21)
[2019-05-10 06:50] LABS: BASO# 0.04 X1000 (0.0-0.2); BASO% 0.5 % (0.0-0.8); EOS# 0.35 X1000 (0.0-0.7); EOS% 4.5 % (0.0-10.0); HEMATOCRIT 23.1 % (42.0-52.0); HEMOGLOBIN 7.4 g/dL (14.0-18.0); LYMPH# 0.86 X1000 (1.2-3.4); MCH 27.8 PG (27-31); MCV 86.8 FL (81-99); MONO# 0.57 X1000 (0.11-0.59); MONO% 7.3 % (1.7-9.3); MPV 11.4 FL (7.4-10.4); NEUT# 5.97 X1000 (1.4-6.5); NEUT% 76.7 % (42.2-75.2); PLT 260 X1000 (130-400); RBC 2.66 XMIL (4.7-6.1); RDW 13.1 % (11.5-14.5); WBC 7.79 X1000 (4.8-10.8)
[2019-05-10] MEDS: HUMULIN 70/30 SUBQ SCH (07:00)
[2019-05-10 07:13] LABS: ALBUMIN 3.7 g/dL (3.5-5.0); CALCIUM 8.5 mg/dL (8.8-10.2); PHOSPHORUS 6.3 mg/dL (2.7-4.5); POTASSIUM 4.3 mmol/L (3.5-5.1)
[2019-05-10] MEDS: DITROPAN PO SCH ×2 (08:46→21:21)
[2019-05-10] MEDS: LASIX IV SCH ×2 (08:46→21:21)
[2019-05-10] MEDS: COREG PO SCH ×2 (08:47→21:21)
[2019-05-10] MEDS: ALBUMIN 25% IV SCH (08:47)
[2019-05-10] MEDS: PROTONIX PO SCH ×2 (08:47→21:21)
[2019-05-10] MEDS: BIDIL PO SCH ×3 (08:47→16:59)
[2019-05-10] MEDS ORDERED: CEPACOL SORE THROAT LOZENGE MT PRN (11:01)
--- NOTE | 2019-05-10 13:53 | PROGRESS NOTE ---
DATE: 05/10/2019 SUBJECTIVE: The patient looks about the same. When I saw him last, breathing okay. Still with edema. OBJECTIVE: Vital Signs: Blood pressure 115/55, heart rate of 79, respiratory rate 16, temperature 98.3 degrees, saturating 93% on 3 L. Cardiovascular: Regular rate and rhythm. Pulmonary: Bilateral breath sounds. Clear to auscultation with occasional rales. GI: Soft, nontender, nondistended. Bowel sounds are positive. LABORATORY DATA: White count 7, hemoglobin and hematocrit 7 and 23, platelets of 260,000. Sodium is down to 128, BUN is up to 125, creatinine is up to 6. PROBLEM LIST: 1. Acute congestive heart failure exacerbation. He has been on Lasix, increasing doses, but he continues to progress in his azotemia. He is also on Milrinone. I think the goal is to kind of see how he does next, but that never happened. In any case, the patient still has progressive renal failure, which is the main issue. I think he is probably progressing towards dialysis requirement or ultrafiltration at the discretion of Dr. Pardo. We will continue treatment. At this point, I am not sure about holding his Lasix because his creatinine continues to rise without very much urine output, 426, 822. Regardless, I think this is heading towards requiring dialysis. May consider biopsy as well just to make sure that the pathology is cardiorenal, although I think he does have underlying diabetic and/or hypertensive nephropathy. We will continue to monitor. 2. Gastroparesis. At some point, I do think we need to finish up his gastric emptying study. I guess he is on Milrinone, so that is why they have held off because he cannot go off the floor on the Milrinone, and I am assuming that will tomorrow, but will see how things go. cc: Esdras Hurtado MD
[2019-05-10] MEDS: PRIMACOR 20 MG/D5W 100 ML 20 MG/100 ML IVPB IV SCH ×2 (15:08)
[2019-05-10] MEDS: FLOMAX PO SCH (21:21)
[2019-05-11] MEDS: REGLAN IV SCH ×2 (02:22→13:30)
[2019-05-11] MEDS: PRIMACOR 20 MG/D5W 100 ML 20 MG/100 ML IVPB IV SCH ×3 (04:30→18:28)
[2019-05-11] MEDS: HUMULIN R SUBQ SCH ×4 (06:16→20:48)
[2019-05-11 06:29] LABS: HEMATOCRIT 22.3 % (42.0-52.0); HEMOGLOBIN 7.6 g/dL (14.0-18.0); MCH 29.8 PG (27-31); MCHC 34.1 g/dL (33-37); MCV 87.5 FL (81-99); MPV 11.4 FL (7.4-10.4); RBC 2.55 XMIL (4.7-6.1); WBC 7.71 X1000 (4.8-10.8)
[2019-05-11 06:36] LABS: ALBUMIN 3.9 g/dL (3.5-5.0); CALCIUM 8.8 mg/dL (8.8-10.2); CREATININE 6.7 mg/dL (0.7-1.2); POTASSIUM 4.5 mmol/L (3.5-5.1)
[2019-05-11] MEDS: ALBUMIN 25% IV SCH (10:10)
[2019-05-11] MEDS: LASIX IV SCH ×2 (10:11→20:58)
[2019-05-11] MEDS: HUMULIN 70/30 SUBQ SCH (13:14)
[2019-05-11] MEDS: BIDIL PO SCH ×3 (13:14→17:09)
--- NOTE | 2019-05-11 13:27 | Diag Imaging Result Doc PS360 ---
EXAM: GASTRIC EMPTYING INDICATION: gastroparesis TECHNIQUE: 346 uCi of technetium 99 sulfur colloid was administered orally with an egg. Images were obtained in usual fashion. COMPARISON: None. FINDINGS: There is normal activity in the gastric lumen initially. After 120 minutes, there has been no significant gastric emptying. Essentially all of the radiotracer remained in the stomach. At this point, the study was stopped. IMPRESSION: Marked delay in gastric emptying with no significant emptying after 120 minutes. Electronically signed by Benitez Maier 05/11/2019 1:24 PM
[2019-05-11] MEDS: COREG PO SCH ×2 (13:32→20:59)
[2019-05-11] MEDS: DITROPAN PO SCH ×2 (13:33→20:59)
[2019-05-11] MEDS: PROTONIX PO SCH ×2 (13:33→20:59)
[2019-05-11] MEDS: LANOXIN PO SCH (13:38)
--- NOTE | 2019-05-11 16:36 | PROGRESS NOTE ---
DATE: 05/11/2019 SUBJECTIVE: Patient seen and examined by me [id number]. I will check his laboratory today and I had a discussion with Dr. Pardo, Nephrology Department. Dr. Pardo has suggested to start this patient on dialysis due to his acute on chronic kidney disease. It looks like his creatinine has been trending up as well as his BUN today. His BUN is 129 and his creatinine 6.7. Dr. Pardo tried to explain to him the whole situation and talked to him about dialysis, but this patient does not speak Turkmen, he speaks Yoruba. So I visited the patient and I had a large conversation with him about the whole situation. I explained to him that he needs to be on dialysis, and this treatment will be sometimes for a period of time, but sometimes it can be permanent. I explained to him that after getting discharged from this hospital, it is possible to continue dialysis as an outpatient and most of the time is 3 times a week. Also I talked to him about the dialysis catheter placement, risk and benefits, and he agreed with that as well. He told me that he agrees with any kind of treatment to save his life, including dialysis. Again he understands now about his kidney situation, and he agreed to go with the treatment and catheter placement. cc: Jerel Fontanez MD MTDInna
--- NOTE | 2019-05-11 16:41 | PROVIDER PROGRESS NOTE ---
Progress Note Subjective: pt lying in bed resting with his eyes closed. Aroused to verbal stimuli. Complains of abdominal pain with no nausea or vomiting. Denies any other uremic complaints. Objective: Temperature 97.7, pulse 82, respiration 16, blood pressure 115/55, 02 sat 99% on room air. General: middle aged Lying in bed in no acute distress HEENT: normocephalic, atraumatic, pupils equal and reactive. Mucous membranes moist. Skin: warm and dry. Neck: supple,8 cm jvd with hepatojugular reflux Cardiovascular: s1s2 regular rate and rhythm, enlarged PMI. Respiratory: diminished bases bilaterally Abdominal: soft, tender to all quadrants, non distended, bowel sounds present : non inspected, Man in place Extremities: 1+ pitting edema to BLE. No clubbing or cyanosis. Neurologic: alert and oriented to person, place, and time. Labs: WBC 7.71, hemoglobin 7.6, hematocrit 22.3, platelet count to 52, sodium 130, potassium 4.5, chloride 90, carbon dioxide 21, BUN 126, creatinine 6.7. Intake 542, output 300. Impression: Acute kidney injury. Likely cardiorenal syndrome. He remains on Milrinone and lasix. Urine output is decreasing. Possible dialysis candidate. I spoke with the patient using the translation phone service. I also had Dr. Beck discuss dialysis, access, chronicity, etc. He understands and is willing to proceed. rg Blood pressure. In target. Nutrition. No changes. Eating. Ambulation. Up with assist. Medication review. No changes.
--- NOTE | 2019-05-11 19:26 | PROGRESS NOTE ---
DATE: 05/11/2019 SUBJECTIVE: The patient is resting in the bed. Not in any obvious distress. OBJECTIVE: Vital signs: Temperature 98.4 degrees, pulse is 86, respiratory rate 16, blood pressure 133/60, oxygen saturation 99%. HEENT: Atraumatic, normocephalic. Cardiovascular: S1, S2, and possibly S3. Respiratory: Has evidence of good air entry bilaterally. Abdomen: Soft, nontender. No masses felt. Extremities: No evidence of significant edema. Central nervous system: No obvious focal deficits noted. LABS: WBC 7.71, hematocrit 22.3, with a platelet count of 252,000. Sodium is 130, potassium is 4.5, chloride is 90, bicarb is 21, BUN is 129, creatinine 6.7. ASSESSMENT AND PLAN: 1. Acute congestive heart failure. Continue diuretics. The patient also on Milrinone. Monitor intakes and outputs as well as daily weights. Cardiology team is following. Of note, patient has developed progressive renal failure while on diuretics. 2. Acute kidney injury, likely cardiorenal. Nephrology following. Patient will likely need dialysis. 3. Diabetes mellitus. Continue blood sugar monitoring as well as sliding scale insulin. 4. Diabetic gastroparesis. Maintain patient on a prokinetic agent. 5. Gastrointestinal prophylaxis. Proton pump inhibitor. 6. Deep vein thrombosis prophylaxis. Sequential compression devices. cc: Maycol Olivia MD
[2019-05-11] MEDS: FLOMAX PO SCH (20:59)
--- NOTE | 2019-05-11 22:16 | GENERAL SURGERY CONSULTATION ---
DATE: 05/11/2019 REQUESTING PHYSICIAN: Dr. Pardo. CONSULT CONCERNING: Need for hemodialysis catheter. HISTORY OF PRESENT ILLNESS: A 34-year-old gentleman initially admitted on 04/24/2019 for cough and shortness of breath. He has had issues with congestive heart failure with EF of 15 to 20 percent. He has developed acute renal injury with a concern that it might be cardiorenal syndrome. I was asked to place a tunneled hemodialysis catheter. PAST MEDICAL HISTORY: Diabetes mellitus, congestive heart failure and hypertension. PAST SURGICAL HISTORY: Includes previous finger amputation. FAMILY HISTORY: Denies diabetes. SOCIAL: Scottish gentleman, former smoker. ALLERGIES: None. MEDICATIONS: MAR reviewed. REVIEW OF SYSTEMS: A full 14 systems reviewed and negative as specified in HPI. PHYSICAL EXAMINATION: Vital Signs: The patient is currently afebrile. His vital signs are stable. General: No acute distress. HEENT: Normocephalic, atraumatic. Pupils equal, round, reactive to light. Mucous membranes moist. Oropharynx benign. Neck: Supple. Trachea midline. Cardiovascular: Regular rate and rhythm. Lungs: Grossly clear. Abdomen: Soft, nontender, nondistended. Extremities: Moves all extremities. Neurologic: Grossly intact. Skin: No signs of jaundice. Vascular: All extremities perfused. LABORATORY: Reviewed. IMAGING: Reviewed. ASSESSMENT AND PLAN: A 34-year-old gentleman with cardiorenal syndrome, needing dialysis placement. Need for dialysis placement. At this time, we will plan on placement of tunneled hemodialysis catheter tomorrow. Discussed with patient the risks, benefits, and alternatives, risks including, but not limited to bleeding, infection, risk of anesthesia, risk of pneumothorax was all discussed. He voiced understanding and wished to proceed. We will try to do this tomorrow. We will get consent. cc: Benjy Gramajo MD
[2019-05-12] MEDS: REGLAN IV SCH ×2 (00:55→13:52)
[2019-05-12 06:20] LABS: HEMATOCRIT 22.4 % (42.0-52.0); HEMOGLOBIN 7.6 g/dL (14.0-18.0); MCH 29.5 PG (27-31); MCHC 33.9 g/dL (33-37); MCV 86.8 FL (81-99); MPV 11.5 FL (7.4-10.4); RBC 2.58 XMIL (4.7-6.1); WBC 7.83 X1000 (4.8-10.8)
[2019-05-12] MEDS: HUMULIN 70/30 SUBQ SCH (06:22)
[2019-05-12] MEDS: HUMULIN R SUBQ SCH ×4 (06:22→22:02)
[2019-05-12 06:41] LABS: CALCIUM 8.6 mg/dL (8.8-10.2); CREATININE 7.3 mg/dL (0.7-1.2); PHOSPHORUS 7.4 mg/dL (2.7-4.5); POTASSIUM 4.3 mmol/L (3.5-5.1)
[2019-05-12] MEDS: PRIMACOR 20 MG/D5W 100 ML 20 MG/100 ML IVPB IV SCH ×4 (07:54→23:04)
[2019-05-12] MEDS: LASIX IV SCH ×3 (07:54→21:42)
[2019-05-12] MEDS: ALBUMIN 25% IV SCH ×2 (07:55→08:01)
[2019-05-12] MEDS: DITROPAN PO SCH ×2 (08:03→21:42)
[2019-05-12] MEDS: PROTONIX PO SCH ×2 (08:04→21:43)
[2019-05-12] MEDS: BIDIL PO SCH ×3 (08:04→16:03)
[2019-05-12] MEDS: COREG PO SCH ×2 (08:04→21:44)
[2019-05-12] MEDS: LANOXIN PO SCH (08:06)
--- NOTE | 2019-05-12 11:09 | GENERAL SURGERY PROGRESS NOTE ---
DATE: 05/12/2019 SUBJECTIVE: Patient seems to be doing okay. No major complaints from the patient. OBJECTIVE: Vital Signs: Patient is currently afebrile. His vital signs are stable. General: No acute distress. Cardiovascular: Regular rate and rhythm. Lungs: Grossly clear. Abdomen: Soft, nontender, and nondistended. LABORATORY: None this morning. ASSESSMENT AND PLAN: A 34-year-old gentleman with cardiorenal syndrome needing dialysis access. Need for dialysis access. At this time, we will plan on placement of a tunneled hemodialysis catheter today. Discussed with them and documented the risks, benefits, and alternatives of the procedure yesterday. We will proceed with the procedure today. He is NPO currently. cc: Benjy Gramajo MD
[2019-05-12] MEDS ORDERED: QUELICIN (DOSE) ONE (12:46)
[2019-05-12] MEDS ORDERED: FENTANYL ONE (12:47)
[2019-05-12] MEDS ORDERED: VERSED ONE (12:47)
[2019-05-12] MEDS ORDERED: DIPRIVAN 1% ONE (12:47)
[2019-05-12] MEDS ORDERED: KEFZOL 1 GM/D5W 1 GM/50 ML IVPB IV ONE (12:48)
[2019-05-12] MEDS ORDERED: KEFZOL 1 GM/D5W 1 GM/50 ML IVPB ONE (12:48)
[2019-05-12] MEDS ORDERED: NS 2,000 ML MISC PRN (12:55)
[2019-05-12] MEDS ORDERED: HEPARIN IV PRN (12:55)
[2019-05-12] MEDS ORDERED: TIGHT: 0.2 ML/HR FOR DIALYSIS MISC PRN (12:55)
[2019-05-12] MEDS ORDERED: XYLOCAINE 1% ONE (13:04)
[2019-05-12] MEDS ORDERED: MARCAINE 0.25% PF/EPI 1:200,000 ONE (13:04)
[2019-05-12] MEDS ORDERED: NS 250 ML ONE (13:04)
--- NOTE | 2019-05-12 14:47 | Diag Imaging Result Doc PS360 ---
EXAM: CHEST-PORTABLE HISTORY: catheter placement TECHNIQUE: Single view COMPARISON: 05/09/2019 FINDINGS: Interval placement of a right jugular line. Tip overlies the right atrium. No pneumothorax. There are bilateral infiltrates and cardiomegaly as well as small pleural effusions. IMPRESSION: No postprocedural pneumothorax. Electronically signed by Mahesh Singleton 05/12/2019 2:45 PM
--- NOTE | 2019-05-12 18:05 | PROGRESS NOTE ---
DATE: 05/12/2019 SUBJECTIVE: Came with shortness of breath. A 34-year-old [place] gentleman who has been living in the [facility] for a long time. He has known diabetes mellitus type 2, diagnosed in 2005, out of medication. He has been told that it was very well under control. He came to the emergency room with shortness of breath. He said for the past 2 weeks he has had some cough which is persistent, nonproductive. He became so short of breath that he thought he was going to suffocate and . He tried to sit up at the edge of his bed and he fell. To help maintain himself, another friend who works at night came and saw him on the floor and tried to help him out of bed. Realized that he was not improving and called the paramedics. So admitted with anasarca secondary to systolic heart failure, dyspnea secondary to pulmonary edema, severe hypertension, systolic congestive heart failure, diabetes mellitus, hypoglycemia, normocytic anemia, hypoalbuminemia, and renal failure. OBJECTIVE: Vital Signs: Temperature 97.6 degrees, pulse 80, respirations 14, blood pressure 110/54. HEENT: Pupils are equal and round. Lungs: Clear in all lung maynard. Cardiovascular: Regular rhythm and rate without murmur or S3. Urine output was 1,500 mL by report. His chest x-ray from today, no postprocedure pneumothorax. ASSESSMENT AND PLAN: 1. He had a Vas-Cath placed and underwent hemodialysis. This is his 1st dialysis, so they placed a tunneled hemodialysis catheter. 2. Acute congestive heart failure, combination of renal failure with volume overload. So, diuresis will, of course, help remove volume. 3. Acute kidney injury on top of chronic kidney disease. Starting dialysis today. 4. Diabetes mellitus type 2. Sugar is under good control. 5. History of gastroparesis. Apparently this is a problem. On the study he has severe retention of food. So we will try and start him on a soft diet tomorrow. 6. Benign prostatic hypertrophy. Continue his Flomax. REVIEW OF HIS ORDERS: I do not see any change. LABORATORY DATA: Review of his lab from this morning, hematocrit 22, hemoglobin 7.6. Electrolytes: Sodium 131, potassium 4.3, chloride 91, BUN 136, creatinine 7.3. Blood sugars 150, 116, 121, 127. cc: Toney Cedeno MD
--- NOTE | 2019-05-12 18:43 | PROVIDER PROGRESS NOTE ---
Progress Note Subjective: pt lying in bed resting, aroused to verbal stimuli. He voices less abdominal tenderness and nausea. Objective: Temperature 98.2, pulse 84, respirations 18, blood pressure 127/62, o2 sat 99% on 4 L nasal cannula. General: middle aged Lying in bed in no acute distress HEENT: normocephalic, atraumatic, pupils equal and reactive. Mucous membranes moist. Skin: warm and dry. Neck: supple,12 cm jvd with hepatojugular reflux Cardiovascular: s1s2 regular rate and rhythm, enlarged PMI. Respiratory: diminished bases bilaterally Abdominal: soft, tender to all quadrants, non distended, bowel sounds present : non inspected, Man in place Extremities:2+ pitting edema that extends to hips. No clubbing or cyanosis. Neurologic: alert and oriented to person, place, and time. Labs: WBC 7.83, hemoglobin 7.6, Hematocrit 24, platelet count 254, sodium 131, potassium 4.3, chloride 91, carbon dioxide 20, BUN 136, creatinine 7.3. Intake 474, output 900. Impression: Acute kidney injury. Likely cardiorenal syndrome. He remains on Milrinone and lasix. Creatinine is trending up with uremic symptoms. We will get a surgery consult and prepare to start dialysis. First HD today. Blood pressure. In target. Nutrition. Decreased intake, likely uremic. Pt will start dialysis today. Ambulation. Up with assist. Medication review. No changes.
--- NOTE | 2019-05-12 20:56 | OPERATIVE NOTE ---
PROCEDURE DATE: 05/12/2019 PREOPERATIVE DIAGNOSIS: Acute renal failure requiring hemodialysis. POSTOPERATIVE DIAGNOSIS: Acute renal failure requiring hemodialysis. PROCEDURE: Ultrasound- and fluoroscopic-guided right internal jugular vein tunneled hemodialysis catheter placement. SURGEON: Benjy Gramajo MD. FAGOTER: None. ANESTHESIA: IV MAC with local as administered by the surgeon. INTRAOPERATIVE FINDINGS: Ultrasound showed a good caliber right internal jugular vein. Fluoroscopy showed the catheter in good position. No obvious pneumothorax. COMPLICATIONS: None at the time of this dictation. ESTIMATED BLOOD LOSS: 5 mL. SPECIMENS REMOVED: None. BRIEF HISTORY: A 34-year-old gentleman with cardiorenal syndrome. He developed acute renal failure and he needed a dialysis catheter. The risks, benefits, and alternatives were discussed. All questions answered. DESCRIPTION OF PROCEDURE: After informed consent was obtained, patient was brought to the operative theater, transferred to the operative table, placed in supine position. IV MAC anesthesia was then performed without complication. A formal time-out was then performed confirming patient, date, and procedure, and all in agreement. At that time, attention was given to the right neck. It was prepped and draped in sterile fashion. Under local anesthetic and ultrasound guidance, I was able to visualize the right internal jugular vein and was able to cannulate it. I was able to pass a wire, seeing it going under the floor to the superior vena cava. We then created a pocket on the right chest wall, tunneled the catheter from the right chest wall to the right neck. Exchanged the wire in typical Seldinger technique to place the tip of the catheter in the superior vena cava. We secured it in place in a standard fashion. All ports aspirated and flushed easily, and the catheter was in good position under fluoroscopy. The patient tolerated the procedure well and was transferred back to the recovery room. cc: Benjy Gramajo MD
[2019-05-12] MEDS: FLOMAX PO SCH (21:44)
[2019-05-13] MEDS: REGLAN IV SCH ×2 (01:19→17:47)
[2019-05-13] MEDS: TYLENOL PO PRN ×2 (01:25→08:31)
[2019-05-13 06:15] LABS: HEMATOCRIT 22.4 % (42.0-52.0); HEMOGLOBIN 7.6 g/dL (14.0-18.0); MCH 29.3 PG (27-31); MCHC 33.9 g/dL (33-37); MCV 86.5 FL (81-99); RBC 2.59 XMIL (4.7-6.1); WBC 7.34 X1000 (4.8-10.8)
[2019-05-13 06:28] LABS: ALBUMIN 3.9 g/dL (3.5-5.0); CALCIUM 8.7 mg/dL (8.8-10.2); PHOSPHORUS 5.8 mg/dL (2.7-4.5); POTASSIUM 4.3 mmol/L (3.5-5.1)
[2019-05-13] MEDS ORDERED: HEPARIN IV PRN (07:01)
[2019-05-13] MEDS ORDERED: NS 2,000 ML MISC PRN (07:01)
[2019-05-13] MEDS ORDERED: TIGHT: 0.2 ML/HR FOR DIALYSIS MISC PRN (07:01)
[2019-05-13] MEDS: HUMULIN 70/30 SUBQ SCH (07:06)
[2019-05-13] MEDS: HUMULIN R SUBQ SCH ×4 (07:07→22:15)
[2019-05-13] MEDS: ALBUMIN 25% IV SCH (08:30)
[2019-05-13] MEDS: COREG PO SCH ×2 (08:30→22:13)
[2019-05-13] MEDS: PROTONIX PO SCH ×2 (08:31→22:13)
[2019-05-13] MEDS: DITROPAN PO SCH ×2 (08:31→22:13)
[2019-05-13] MEDS: LANOXIN PO SCH (08:31)
[2019-05-13] MEDS: BIDIL PO SCH ×3 (08:31→17:47)
--- NOTE | 2019-05-13 10:06 | PROGRESS NOTE ---
DATE: 05/13/2019 SUBJECTIVE: He is sitting up at the edge of bed, feels good, breathing comfortably, remains afebrile. OBJECTIVE: Vital Signs: Temperature 98 degrees, pulse 88, respirations 16, blood pressure 146/71. Lungs: Lungs are clear in all lung maynard. Cardiovascular exam: Regular rhythm and rate without murmur or S3. Abdomen: Soft. Skin: Skin is warm and dry. ASSESSMENT AND PLAN: 1. Acute kidney injury, likely cardiorenal syndrome. Remains on Milrinone and Lasix. Creatinine trending up with uremic symptoms, and so started his first dialysis yesterday after a tunneled catheter was placed. He seems to be doing well. 2. Volume status and electrolytes look good. 3. Acute congestive heart failure in combination with renal failure, volume overload. This is improved. He will be able to diurese some volume down and this will be helpful. 4. Acute kidney injury on top of chronic kidney disease. 5. Diabetes mellitus type 2. Sugars under good control. 6. History of gastroparesis. We will see how we do with a soft diet. 7. Benign prostatic hypertrophy. Continue his present Flomax. CURRENT ORDERS: I do not see any change. Recent lab this morning: Hematocrit 22, hemoglobin 7.6 and stable. Electrolytes look okay. cc: Toney Cedeno MD
--- NOTE | 2019-05-13 10:19 | PROVIDER PROGRESS NOTE ---
Progress Note Subjective: pt lying in bed resting, aroused to verbal stimuli. He voices feeling better. He denies any nausea and vomiting. Objective: temp 98.8, pulse 90, respiration 16, blood pressure 130/63, o2 sat 99% on 3 L nasal cannula. General: middle aged Lying in bed in no acute distress HEENT: normocephalic, atraumatic, pupils equal and reactive. Mucous membranes moist. Skin: warm and dry. Right tunnel cath Neck: supple,8 cm jvd with hepatojugular reflux Cardiovascular: s1s2 regular rate and rhythm, systolic murmur, enlarged PMI. Respiratory: diminished bases bilaterally Abdominal: soft, nontender, non distended, bowel sounds present : non inspected, Man in place Extremities:2+ pitting edema to bilateral knees down to feet. No clubbing or cyanosis. Neurologic: alert and oriented to person, place, and time. Labs: sOdium 135, Potassium 4.3, chloride 95, carbon dioxide 22, BUN 87, Creatinine 5.0, intake 740, output 2505. Impression: Acute kidney injury. Likely cardiorenal syndrome. He remains on Milrinone and lasix. Stop lasix. He had his first HD treatment yesterday with no complications. He will have another treatment today with 2.5Ca and 3.0K bath. Blood pressure. In target. Nutrition. Encouraged to eat. Ambulation. Up with assist. Medication review. No changes.
[2019-05-13] MEDS: PRIMACOR 20 MG/D5W 100 ML 20 MG/100 ML IVPB IV SCH ×2 (10:55→14:43)
[2019-05-13 13:56] LABS: HEPATITIS PROFILE ACUTE SEE COMMENTS
[2019-05-13] MEDS: FLOMAX PO SCH (22:13)
[2019-05-14] MEDS: TYLENOL PO PRN ×2 (04:37→22:01)
[2019-05-14] MEDS ORDERED: HEPARIN IV PRN (06:21)
[2019-05-14] MEDS ORDERED: NS 2,000 ML MISC PRN (06:21)
[2019-05-14] MEDS ORDERED: TIGHT: 0.2 ML/HR FOR DIALYSIS MISC PRN (06:21)
[2019-05-14] MEDS: REGLAN IV SCH ×2 (06:37→17:32)
[2019-05-14] MEDS: HUMULIN 70/30 SUBQ SCH (06:37)
[2019-05-14] MEDS: HUMULIN R SUBQ SCH ×4 (06:38→21:53)
[2019-05-14 07:08] LABS: HEMOGLOBIN 8.2 g/dL (14.0-18.0); MCH 28.5 PG (27-31); RBC 2.88 XMIL (4.7-6.1)
[2019-05-14 07:18] LABS: BASO# 0.08 X1000 (0.0-0.2); EOS# 0.35 X1000 (0.0-0.7); EOS% 4.3 % (0.0-10.0); HEMATOCRIT 25.1 % (42.0-52.0); LYMPH# 0.84 X1000 (1.2-3.4); LYMPH% 10.3 % (20.5-51.1); MCHC 32.7 g/dL (33-37); MCV 87.2 FL (81-99); MONO# 0.73 X1000 (0.11-0.59); MONO% 8.9 % (1.7-9.3); MPV 11.2 FL (7.4-10.4); NEUT# 6.18 X1000 (1.4-6.5); NEUT% 75.5 % (42.2-75.2); PLT 273 X1000 (130-400); RDW 12.8 % (11.5-14.5); WBC 8.18 X1000 (4.8-10.8)
[2019-05-14 10:25] LABS: ALBUMIN 4.7 g/dL (3.5-5.0); CALCIUM 9.1 mg/dL (8.8-10.2); CREATININE 1.9 mg/dL (0.7-1.2); POTASSIUM 3.7 mmol/L (3.5-5.1); TOTAL BILIRUBIN 0.61 mg/dL (0.20-1.00)
[2019-05-14] MEDS: BIDIL PO SCH ×3 (11:01→17:32)
[2019-05-14] MEDS: PROTONIX PO SCH ×2 (12:05→21:52)
[2019-05-14] MEDS: LANOXIN PO SCH (12:05)
[2019-05-14] MEDS: ALBUMIN 25% IV SCH (12:06)
[2019-05-14] MEDS: DITROPAN PO SCH ×2 (12:06→21:52)
[2019-05-14] MEDS: COREG PO SCH ×2 (12:06→21:53)
--- NOTE | 2019-05-14 13:18 | PROGRESS NOTE ---
DATE: 05/14/2019 SUBJECTIVE: He is feeling a little better. His cousin was in the room and reports that he feels a little better. He remains afebrile. OBJECTIVE: Vital Signs: Temperature 98.6 degrees, pulse 79, respirations 15, blood pressure 160/79. Eyes: Pupils are equal and round. Lungs: Lungs are clear in all lung maynard. Cardiovascular exam: Regular rhythm and rate without murmur or S3. : Urine output was 5600 mL. ASSESSMENT AND PLAN: 1. Likely cardiorenal syndrome. He is doing a little better. Acute kidney injury. He is getting dialysis. His volume status is improved, so we will see when we are ready to go home. We will keep the Man catheter in. Trying to keep track of his output. Encourage oral intake which seems to be doing pretty well. 2. Diabetes mellitus type 2. Sugars appear under good control. 3. History of gastroparesis. 4. Benign prostatic hypertrophy. He is on Flomax 0.4 mg a day. MEDICATIONS: Getting albumin 25 grams intravenous daily, calcium carbonate 750 mg oral before meals and at bedtime, Coreg 25 mg every 12 hours, Lanoxin 125 mcg oral daily, isosorbide dinitrate 2 tablets three times a day, insulin Humulin 70/30 10 units subcutaneous; he gets this 30 minutes before meals. cc: Toney Cedeno MD
--- NOTE | 2019-05-14 15:15 | PROVIDER PROGRESS NOTE ---
Progress Note Subjective: pt sitting up to chair. He denies any nausea and vomiting. Complains of pain to right tunnel catheter. Objective: temp 98.3, pulse 90, respirations 17, blood pressure 149/56, O2 sat 100% on 4 L nasal cannula. General: middle aged Lying in bed in no acute distress HEENT: normocephalic, atraumatic, pupils equal and reactive. Mucous membranes moist. Skin: warm and dry. Right tunnel cath with bright red bloody discharge. No active bleeding. Neck: supple, JVD observed in upright position. Cardiovascular: s1s2 regular rate and rhythm, systolic murmur, enlarged PMI. Respiratory: diminished bases bilaterally Abdominal: soft, nontender, non distended, bowel sounds present : non inspected, Man in place Extremities: 1+ pitting edema to BLE. No clubbing or cyanosis. Neurologic: alert and oriented to person, place, and time. Labs: intake 484, output 5200. WBC 8.18, hemoglobin 8.2, hematocrit 25.1, platelet count 273 Impression: Acute kidney injury. Likely cardiorenal syndrome. He will receive another hemodialysis treatment today. No change. Blood pressure. In target. Anemia. Hgb low, transfuse 2 units PRBCs with HD today. Nutrition. Encouraged to eat. Ambulation. Up with assist. Medication review. No changes.
[2019-05-14] MEDS: FLOMAX PO SCH (21:53)
[2019-05-15 05:58] LABS: HEMATOCRIT 28.7 % (42.0-52.0); HEMOGLOBIN 9.4 g/dL (14.0-18.0); MCH 28.6 PG (27-31); MCHC 32.8 g/dL (33-37); MCV 87.2 FL (81-99); RBC 3.29 XMIL (4.7-6.1); RDW 13.4 % (11.5-14.5); WBC 9.47 X1000 (4.8-10.8)
[2019-05-15] MEDS: REGLAN IV SCH ×2 (06:15→17:29)
[2019-05-15] MEDS: HUMULIN R SUBQ SCH ×4 (06:16→21:00)
[2019-05-15] MEDS: HUMULIN 70/30 SUBQ SCH (06:16)
[2019-05-15 06:26] LABS: ALBUMIN 3.9 g/dL (3.5-5.0); CALCIUM 8.9 mg/dL (8.8-10.2); CREATININE 2.6 mg/dL (0.7-1.2); PHOSPHORUS 3.3 mg/dL (2.7-4.5); POTASSIUM 4.1 mmol/L (3.5-5.1)
[2019-05-15] MEDS: ALBUMIN 25% IV SCH (09:43)
[2019-05-15] MEDS: PROTONIX PO SCH ×2 (09:44→21:55)
[2019-05-15] MEDS: BIDIL PO SCH ×3 (09:44→17:28)
[2019-05-15] MEDS: DITROPAN PO SCH ×2 (09:44→21:54)
[2019-05-15] MEDS: COREG PO SCH ×2 (09:44→21:54)
[2019-05-15] MEDS: LANOXIN PO SCH (09:44)
[2019-05-15] MEDS: TYLENOL PO PRN (09:48)
--- NOTE | 2019-05-15 14:56 | PROGRESS NOTE ---
DATE: 05/15/2019 SUBJECTIVE: Mr. Espinoza is feeling better. His breathing is better. I plan on dialyze him again tomorrow. OBJECTIVE: Vital Signs: Temperature 99.0 degrees, pulse 94, respirations 18, blood pressure 149/65. Eyes: Pupils are equal. Lungs: Lungs are clear in all lung maynard anterolateral. Cardiovascular exam: Regular rhythm and rate without murmur or S3. Abdomen: Soft. Skin: Skin is warm and dry. : Urine output is 880 mL. Blood sugar 198, 138 and 271. ASSESSMENT AND PLAN: 1. Acute kidney injury, likely cardiorenal syndrome. Plan on dialysis again tomorrow. His volume status looks good. 2. He got a transfusion of 2 units packed red blood cells I think today, or actually that was yesterday. 3. Diabetes mellitus type 2. Sugars under good control. 4. Gastroparesis. 5. Benign prostatic hypertrophy. Review of his orders: I do not see any changes. cc: Toney Cedeno MD
[2019-05-15] MEDS: FLOMAX PO SCH (21:54)
--- NOTE | 2019-05-15 22:15 | NEPHROLOGY PROGRESS NOTE ---
DATE: 05/15/2019 SUBJECTIVE: He is resting in bed. He complains of tenderness at his catheter exit site. No shortness of breath, nausea or vomiting. He ate his breakfast. OBJECTIVE: Blood pressure 155/73, heart rate 90, respirations 18. Afebrile. Intake 3.4 L, output 4.8 L. Generally in no acute distress. Skin is warm and dry. Neck veins are still distended. Heart is regular, with a murmur. Lungs are equal. No crackles. Abdomen is soft, nontender. Bowel sounds present. Extremities: Edema 2 to 3+. No clubbing or cyanosis. IMPRESSION AND PLAN: Acute kidney injury, cardiorenal syndrome. His volume status is improving, though he is far from euvolemic. Urine output remains very low. Dialysis tomorrow. cc: Delvin Pardo MD
[2019-05-16] MEDS: REGLAN IV SCH ×2 (06:09→18:07)
[2019-05-16] MEDS: TYLENOL PO PRN (06:11)
[2019-05-16] MEDS: HUMULIN R SUBQ SCH ×4 (06:13→22:30)
[2019-05-16] MEDS: HUMULIN 70/30 SUBQ SCH (06:13)
[2019-05-16] MEDS ORDERED: NS 2,000 ML MISC PRN (07:08)
--- NOTE | 2019-05-16 10:51 | PROGRESS NOTE ---
DATE: 05/16/2019 SUBJECTIVE: Mr. Holder is going for dialysis again this morning, breathing comfortably, remains afebrile. OBJECTIVE: Vital Signs: Temperature 98.9 degrees, pulse 70, respirations 17, blood pressure 153/67. Eyes: Pupils are equal and round. Lungs: Lungs are clear in all lung maynard. Cardiovascular exam: Regular rhythm and rate without murmur or S3. Abdomen: Abdomen is soft. Skin: Skin is warm and dry. ASSESSMENT AND PLAN: 1. Acute kidney injury, likely cardiorenal syndrome. Continue dialysis. Volume is improving. 2. Received a transfusion 2 units packed red blood cells I think a couple days ago. 3. Diabetes mellitus type 2. Sugars under good control. 4. Gastroparesis. 5. Benign prostatic hypertrophy. I do not see any change in his orders. REVIEW OF LAB FROM YESTERDAY: Hematocrit 28, hemoglobin 9.4. Electrolytes unremarkable. Blood sugars under good control. cc: Toney Cedeno MD
[2019-05-16] MEDS: BIDIL PO SCH ×4 (14:14→18:07)
[2019-05-16] MEDS: LANOXIN PO SCH (14:14)
[2019-05-16] MEDS: DITROPAN PO SCH ×2 (14:14→22:30)
[2019-05-16] MEDS: COREG PO SCH ×2 (14:14→22:30)
[2019-05-16] MEDS: PROTONIX PO SCH ×2 (14:15→22:30)
[2019-05-16] MEDS: ALBUMIN 25% IV SCH (15:05)
[2019-05-16] MEDS: FLOMAX PO SCH (22:30)
[2019-05-17] MEDS: REGLAN IV SCH ×2 (06:05→17:22)
[2019-05-17] MEDS: HUMULIN 70/30 SUBQ SCH (06:06)
[2019-05-17 06:44] LABS: HEMATOCRIT 28.3 % (42.0-52.0); HEMOGLOBIN 9.1 g/dL (14.0-18.0); MCH 28.3 PG (27-31); MCHC 32.2 g/dL (33-37); MCV 87.9 FL (81-99); MPV 11.3 FL (7.4-10.4); RBC 3.22 XMIL (4.7-6.1); RDW 13.1 % (11.5-14.5); WBC 10.39 X1000 (4.8-10.8)
[2019-05-17] MEDS: HUMULIN R SUBQ SCH ×4 (06:54→21:44)
[2019-05-17 07:08] LABS: CALCIUM 8.8 mg/dL (8.8-10.2); CREATININE 3.2 mg/dL (0.7-1.2); PHOSPHORUS 2.9 mg/dL (2.7-4.5); POTASSIUM 4.1 mmol/L (3.5-5.1)
[2019-05-17] MEDS: BIDIL PO SCH ×3 (09:34→17:22)
[2019-05-17] MEDS: COREG PO SCH ×2 (09:34→21:43)
[2019-05-17] MEDS: PROTONIX PO SCH ×2 (09:34→21:43)
[2019-05-17] MEDS: DITROPAN PO SCH ×2 (09:34→21:43)
[2019-05-17] MEDS: LANOXIN PO SCH (09:35)
[2019-05-17] MEDS: ALBUMIN 25% IV SCH (09:39)
--- NOTE | 2019-05-17 14:08 | PROGRESS NOTE ---
DATE: 05/17/2019 SUBJECTIVE: Patient denies shortness of breath or chest discomfort on room air. OBJECTIVE: Blood pressure 113/50, heart rate 72, oxygen saturation 96% on room air. Jugular venous distention is still evident consistent with elevated central venous pressure.Chest: Clear to auscultation bilaterally. Cardiac Exam: Reveals a regular rate and rhythm without appreciable murmur or gallop. Extremities: Without edema. LABORATORY DATA: Includes a white blood cell count 10.39, hematocrit 28.3, hemoglobin 9.1, platelet count 252,000. Sodium 134, potassium 4.1, chloride 94, carbon dioxide 26, BUN 44, creatinine 3.2, glucose 131. IMPRESSION: 1. Acute on chronic systolic heart failure, biventricular but with predominantly right-sided congestive heart failure. 2. Acute on chronic renal dysfunction with significant cardiorenal syndrome. 3. Severe cardiomyopathy. 4. Diabetes mellitus. RECOMMENDATIONS: 1. Continue efforts to remove volume via dialysis. 2. Consider resumption of diuretic therapy but will wait until this is felt appropriate by Nephrology. cc: Danie Anna MD
--- NOTE | 2019-05-17 15:58 | PROGRESS NOTE ---
DATE: 05/17/2019 OBJECTIVE: Vitals: Remains afebrile. Temp 99.0 degrees, pulse 72, respirations 17, blood pressure 113/50. Eyes: Pupils are equal and round. Lungs: Clear in all lung maynard. Cardiovascular: Regular rhythm and rate without murmur or S3. Abdomen: Soft. Skin: Warm and dry. Urine output is 3100 mL. ASSESSMENT AND PLAN: 1. Acute on chronic systolic heart failure, biventricular, but with predominantly right-sided congestive heart failure. 2. Acute on chronic renal dysfunction and significant cardiorenal syndrome. 3. Severe cardiomyopathy. 4. Diabetes mellitus type 2. He is on dialysis. Has a little bit of nausea today. He has been eating pretty good. Decide when we can discharge. We will discuss with Dr. Pardo. He does have a history of benign prostatic hypertrophy when he is on Flomax 0.4 mg at bedtime. He is getting albumin 25 g IV daily. He has calcium carbonate 750 mg and at bedtime. I think he gets that p.r.n. epigastric pain. He is on isosorbide dinitrate with hydralazine 2 tablets 3 times a day and Protonix 40 mg p.o. b.i.d. Electrolytes and volume status look good. Hematocrit stable at 28, hemoglobin 9.1. cc: Toney Cedeno MD [facility]
--- NOTE | 2019-05-17 18:21 | GASTROENTEROLOGY PROGRESS NOTE ---
DATE: 05/16/2019 SUBJECTIVE: A 34-year-old male. He was resting in bed. The patient mentioned that he was going to get his dialysis today. He has denied any nausea, vomiting, or abdominal pain. The patient is on a GI soft diet and he mentioned that he is able to tolerate diet fairly well. OBJECTIVE: Vital Signs: Temperature 98.9, pulse 73, respirations 17, blood pressure 153/67, oxygen saturation 94% on room air. General: He is alert, oriented x2. HEENT: Pale conjunctivae. No icterus. PERRL. Neck: Supple. Lungs: Clear to auscultation in the anterior maynard. Cardiovascular: Regular rate and rhythm. Abdomen: Soft nontender, nondistended. Active bowel sounds heard in all 4 quadrants. Extremities: No clubbing. No cyanosis. Generalized edema in the lower extremities. Pedal pulses 2+ present bilaterally. Neurological: Alert and oriented x3. LABORATORY: WBC is 9.47, RBC 3.29, hemoglobin is 9.4, hematocrit is 28.7, platelet count is 252,000. Sodium 135, potassium 4.1, chloride 94, carbon dioxide is 27, anion gap 14, BUN 32, creatinine 2.6, glucose 140, calcium 8.9, phosphorus 3.3. The patient's hepatitis panel has been nonreactive. IMPRESSIONS AND PLAN: 1. Anemia. 2. Gastroparesis. 3. Diabetes type 2. 4. Congestive heart failure. 5. Chronic kidney disease PLAN: Mr. Holder is a 34-year-old male, GI has been following him for his worsening anemia and gastroparesis. The patient's nausea and vomiting has been under control. His hemoglobin today is 9.1 and hematocrit is 28.3. So far the patient has received 2 units of packed red blood cells. He is currently on antiemetic, Zofran for his nausea and vomiting and Reglan 5 mg twice a day, we will monitor him for side effects of tardive dyskinesia. The patient is also on GI prophylaxis Protonix 40 mg p.o. twice a day. His diabetes is controlled by insulin, Humulin 70/30 and Humulin regular on a sliding scale. The patient has been advised to eat small frequent meals low-fat diet for his gastroparesis. We will continue to monitor the patient and follow the plan of care per PCP. This plan was discussed with Dr. Archer. Please call us for any further questions or concerns. Dictated by EMILE Romero for Alondra Archer MD cc: Alondra Archer MD [facility]
--- NOTE | 2019-05-17 21:18 | GASTROENTEROLOGY PROGRESS NOTE ---
DATE: 05/17/2019 SUBJECTIVE: Mr. Holder is a 34-year-old male. He is resting in bed. The patient has denied any nausea, vomiting, or abdominal pain. He is on a GI soft diet and he is tolerating his diet well. OBJECTIVE: Vital signs: Temperature 98.3 degrees, pulse of 63, respirations 15, blood pressure 140/67, oxygen saturation 96% on room air. His weight is 136 pounds. BMI is 25.7 kg/m2. General: He is alert, oriented x3. The patient speaks very little Nepalese, but is able to answer questions. HEENT: Pale conjunctivae. No icterus. PERRL. Neck: Is supple. Lungs: Clear to auscultation in the anterior maynard. Cardiovascular: Regular rate and rhythm. Abdomen: Is soft, nontender, mildly distended. Active bowel sounds heard in all 4 quadrants. Extremities: No clubbing, no cyanosis. Generalized edema. Pedal pulses 2+ present bilaterally. Neurologic: Alert and oriented x3. LABORATORY DATA: WBCs are 7.39, RBC 3.22, hemoglobin 9.1, hematocrit 28.3, platelet count is 252,000. Sodium 134, potassium 4.1, chloride 94, carbon dioxide 26, anion gap 14, BUN 44, creatinine 3.2, glucose 131, calcium 8.8, phosphorus 2.9, albumin 4. IMPRESSION AND PLAN: 1. Anemia 2. Gastroparesis. 3. Diabetes type 2. 4. Congestive heart failure. 5. Chronic kidney disease on dialysis PLAN: Mr. Holder is a 34-year-old male. Gastroenterology has been following him for his worsening anemia and gastroparesis. The patient's nausea and vomiting is under control. His hemoglobin and hematocrit is 9.1 and 28.3. So far patient has received 2 units of packed red blood cells. He is currently on antiemetic Zofran for his nausea and vomiting and Reglan 5 mg twice a day. We will continue to monitor him for side effects of tardive dyskinesia. The patient is also on a gastrointestinal prophylaxis, Protonix 40 mg twice a day. His diabetes is controlled by insulin, Humulin 70/30 and Humulin regular on sliding scale. The patient has been advised to eat a low fat diet and small frequent meals for his gastroparesis. We will continue to monitor the patient and follow the plan of care per PCP. This plan was discussed with Dr. Archer. Please call us for any further questions or concerns. Dictated by EMILE Romero for Alondra Archer MD cc: Alondra Archer MD [facility]
[2019-05-17] MEDS: FLOMAX PO SCH (21:44)
[2019-05-18] MEDS: TYLENOL PO PRN (01:57)
[2019-05-18] MEDS: HUMULIN 70/30 SUBQ SCH (06:03)
[2019-05-18] MEDS: REGLAN IV SCH (06:03)
[2019-05-18 06:19] LABS: HEMATOCRIT 26.8 % (42.0-52.0); HEMOGLOBIN 8.8 g/dL (14.0-18.0); MCHC 32.8 g/dL (33-37); MCV 88.4 FL (81-99); MPV 10.9 FL (7.4-10.4); RBC 3.03 XMIL (4.7-6.1); RDW 13.1 % (11.5-14.5); WBC 8.38 X1000 (4.8-10.8)
[2019-05-18 07:09] LABS: ALBUMIN 4.2 g/dL (3.5-5.0); CALCIUM 9.1 mg/dL (8.8-10.2); CREATININE 4.8 mg/dL (0.7-1.2); PHOSPHORUS 3.5 mg/dL (2.7-4.5); POTASSIUM 4.5 mmol/L (3.5-5.1)
[2019-05-18] MEDS ORDERED: TIGHT: 0.2 ML/HR FOR DIALYSIS MISC PRN (07:26)
[2019-05-18] MEDS ORDERED: NS 2,000 ML MISC PRN (07:26)
[2019-05-18] MEDS ORDERED: HEPARIN IV PRN (07:26)
--- NOTE | 2019-05-18 11:38 | GASTROENTEROLOGY PROGRESS NOTE ---
DATE: 05/18/2019 SUBJECTIVE: Mr. Glory Espinoza is a 34-year-old male, he was in the dialysis unit getting dialysis. The patient has denied any nausea, vomiting, or any abdominal pain. OBJECTIVE: Vital Signs: Temperature 97.5 degrees, pulse 65, respirations 19, blood pressure 133/65, oxygen saturation 98% on room air. General: He is alert, oriented x3, and in no acute distress. HEENT: Pale conjunctivae. No icterus. PERRL. Neck: Supple. Lungs: Clear to auscultation in the anterior maynard. Cardiovascular: Regular rate and rhythm. Abdomen: Soft, nontender, nondistended. Active bowel sounds heard in all 4 quadrants. Extremities: No clubbing, no cyanosis, no edema. Pedal pulses 2+ present bilaterally. Neurologic: He is alert oriented x3. LABORATORY DATA: WBC is 8.38, RBC 3.03, hemoglobin 8.8, hematocrit 26.8, platelet count is 235,000. Sodium 133, potassium 4.5, chloride 94, carbon dioxide 26, anion gap 13, BUN 59, creatinine 4.8, glucose 149, calcium 9.1, phosphorus 3.5, albumin 4.2. IMPRESSION AND PLAN: 1. Anemia. 2. Gastroparesis. 3. Diabetes type 2. 4. Congestive heart failure. 5. Chronic kidney disease on dialysis. PLAN: Mr. Glory Espinoza is a 33-year-old male with the history of gastroparesis, GI is following him for his nausea, vomiting, and gastroparesis. The patient's nausea and vomiting is under control. He is on antiemetic Zofran 4 mg as needed. The patient is also on GI prophylaxis, Protonix 40 mg twice a day. The patient is also on Reglan 5 mg IV twice a day. We will continue to monitor him for the side effects of tardive dyskinesia. We will continue to provide supportive care to the patient and we will follow the plan of care per PCP. This plan was discussed with Dr. Renteria. Please call us for any further questions or concerns. Dictated by EMILE Romero for Mehran Renteria MD cc: eMhran Renteria MD I have seen and examined the patient myself and I agree with the above plan of care. Discussed the above with the patient and all questions were answered. MTDD
[2019-05-18] MEDS: HUMULIN R SUBQ SCH ×4 (12:42→22:26)
[2019-05-18] MEDS: COREG PO SCH ×2 (12:50→22:23)
[2019-05-18] MEDS: DITROPAN PO SCH ×2 (12:52→22:23)
[2019-05-18] MEDS: PROTONIX PO SCH ×2 (12:54→22:24)
[2019-05-18] MEDS: BIDIL PO SCH ×3 (12:54→22:24)
--- NOTE | 2019-05-18 16:33 | PROVIDER PROGRESS NOTE ---
Progress Note Subjective: Denies any uremic complaints Objective: temp 98.7, pulse 73, respirations 18, blood pressure 131/63, 02 sat 94% on room air. General: middle aged Lying in bed in no acute distress HEENT: normocephalic, atraumatic, pupils equal and reactive. Mucous membranes moist. Skin: warm and dry. Right tunnel cath. Neck: supple, JVD observed. Cardiovascular: s1s2 regular rate and rhythm, systolic murmur, enlarged PMI. Respiratory: diminished bases bilaterally Abdominal: soft, nontender, non distended, bowel sounds present : non inspected, Extremities: No clubbing or cyanosis. Slight pitting edema around bilateral hips. Neurologic: alert and oriented to person, place, and time. Labs: intake 420, output 50. WBC 8.38, hemoglobin 8.8, hematocrit 26.8, platelet count 235, sodium 133, potassium 4.5, chloride 94, carbon dioxide 26, BUN 59, creatinine 4.8. Impression: Acute kidney injury. Likely cardiorenal syndrome/ATN. He will receive another hemodialysis treatment today. 2 K, 2.5 Ca. Plans to discharge after treatment. He will dialyze in the hospital TTS. Blood pressure. In target. Anemia. Hgb low, but stable. Nutrition. Encouraged to eat. Ambulation. Up with assist. Medication review. No changes.
[2019-05-18] MEDS: ALBUMIN 25% IV SCH (16:41)
--- NOTE | 2019-05-18 18:12 | PROGRESS NOTE ---
DATE: 05/18/2019 SUBJECTIVE: He does feel a little better. We are going to go ahead and discontinue his PICC line. We will take out his Man catheter. I think he is supposed to get dialysis, and I think he can be scheduled on Tuesdays, and Saturdays so we will get him ready. I have talked to Dr. Pardo and maybe we will get him ready after dialysis tomorrow. OBJECTIVE: Vital Signs: Temperature 97.3 degrees, pulse 67, respirations 14, and blood pressure 145/76. HEENT: Pupils are equal and round. Lungs: Clear in all lung maynard. Cardiovascular: Regular rhythm and rate without murmur or S3. Input and Output: Urine output from yesterday was 470 mL. ASSESSMENT AND PLAN: 1. Acute kidney injury, likely cardiorenal syndrome and acute tubular necrosis. Receive another hemodialysis treatment. He received 1 today. I think the plan is will probably be to receive one tomorrow again, and be discharged, but he will receive dialysis on Tuesdays, , and Saturdays. He may not need dialysis tomorrow, but we need to get his Man catheter out, and make sure he can void. We will pull out his PICC line, and see if we can get things ready for him. 2. Gastroparesis. We will need to put him on p.o. Reglan. Apparently, it is pretty severe. We are going to take out his PICC line. 3. Diabetes mellitus type 2. Sugars under good control. 4. Congestive heart failure. Aware. 5. Chronic kidney disease as above. Looking back at his reports, I think we have obtained an echocardiogram. We did get a gastric emptying study, and there was marked delay in gastric emptying. No significant emptying after 120 minutes. In looking back, echocardiogram done in April of this year, left ventricular systolic dysfunction with ejection fraction of 15 to 20 percent. I do not see any other significant valvular dysfunction. cc: Toney Cedeno MD
[2019-05-18] MEDS: FLOMAX PO SCH (22:25)
[2019-05-19 06:22] LABS: HEMATOCRIT 27.3 % (42.0-52.0); HEMOGLOBIN 8.8 g/dL (14.0-18.0); MCH 28.1 PG (27-31); MCHC 32.2 g/dL (33-37); MCV 87.2 FL (81-99); MPV 11.1 FL (7.4-10.4); RBC 3.13 XMIL (4.7-6.1); RDW 12.9 % (11.5-14.5); WBC 10.19 X1000 (4.8-10.8)
[2019-05-19 06:35] LABS: ALBUMIN 4.3 g/dL (3.5-5.0); CALCIUM 8.8 mg/dL (8.8-10.2); CREATININE 3.6 mg/dL (0.7-1.2); POTASSIUM 4.7 mmol/L (3.5-5.1)
[2019-05-19] MEDS: HUMULIN R SUBQ SCH ×4 (06:53→21:57)
[2019-05-19] MEDS: HUMULIN 70/30 SUBQ SCH (07:29)
[2019-05-19] MEDS: REGLAN PO SCH ×3 (07:29→16:44)
[2019-05-19] MEDS: PROTONIX PO SCH ×2 (08:16→21:55)
[2019-05-19] MEDS: BIDIL PO SCH ×3 (08:16→16:44)
[2019-05-19] MEDS: COREG PO SCH ×2 (08:17→21:55)
[2019-05-19] MEDS: DITROPAN PO SCH ×2 (08:17→21:56)
--- NOTE | 2019-05-19 13:03 | PROVIDER PROGRESS NOTE ---
Progress Note Subjective: Denies any uremic complaints Objective: temp 97.9, pulse 80, respirations 18, blood pressure 140/63, 02 sat 96% on room air. General: middle aged Lying in bed in no acute distress HEENT: normocephalic, atraumatic, pupils equal and reactive. Mucous membranes moist. Skin: warm and dry. Right tunnel cath. Neck: supple, JVD observed. Cardiovascular: s1s2 regular rate and rhythm, systolic murmur, enlarged PMI. Respiratory: diminished bases bilaterally Abdominal: soft, nontender, non distended, bowel sounds present : non inspected, Extremities: No clubbing or cyanosis. Slight pitting edema around bilateral hips. Neurologic: alert and oriented to person, place, and time. Labs: WBC 10.19, hemoglobin 8.8, hematocrit 27.3, platelet count 252, sodium 134, potassium 4.7, chloride 93, carbon dioxide 26, BUN 44, creatinine 3.6, calcium 8.8, albumin 4.3. intake zero, output 3190. Impression: Acute kidney injury. Likely cardiorenal syndrome. He will not dialysis today. He will dialyze in the hospital TTS. Blood pressure. In target. Anemia. Hgb low, but stable. Nutrition. Encouraged to eat. Dietary consult. Ambulation. Up with assist. Medication review.
--- NOTE | 2019-05-19 13:38 | Diag Imaging Result Doc PS360 ---
EXAM: CHEST-2 VIEWS 05/19/2019 HISTORY: assess pulmonary edema TECHNIQUE: PA and lateral chest COMMENT: Compared to 05/12/2019 there is denser alveolar opacification in the lung bases particularly the left lower lobe. There are bilateral small pleural effusions. The heart size is enlarged. IMPRESSION: Worsened pulmonary edema and/or pneumonia. Electronically signed by Foster Meza 05/19/2019 1:35 PM
--- NOTE | 2019-05-19 18:15 | PROGRESS NOTE ---
DATE: 05/19/2019 SUBJECTIVE: Patient has no major complaints. He is sitting up in bed comfortably. OBJECTIVE: Vital Signs: Blood pressure is 105/70, heart rate 79, respiratory rate 13, temperature 98 degrees, 97% on room air. Cardiovascular: Regular rate and rhythm. Pulmonary: Bilateral breath sounds, clear to auscultation. Gastrointestinal: Soft, nontender, nondistended. Bowel sounds are positive. LABORATORY DATA: White count is 10, hemoglobin and hematocrit of 8 and 27. Creatinine is at 3.6. He seems to be better. PROBLEM LIST: 1. Acute kidney injury, cardiorenal. He is on dialysis Saturday, , Saturday. We are going to continue to monitor. 2. Blood pressure is stable. 3. Anemia, stable. DISPOSITION: Once we can work out his dialysis schedule, he is probably able to go home here soon. cc: Esdras Hurtado MD
[2019-05-19] MEDS: FLOMAX PO SCH (21:55)
[2019-05-20] MEDS ORDERED: HEPARIN IV PRN (06:17)
[2019-05-20] MEDS ORDERED: TIGHT: 0.2 ML/HR FOR DIALYSIS MISC PRN (06:17)
[2019-05-20] MEDS ORDERED: NS 2,000 ML MISC PRN (06:17)
[2019-05-20 06:52] LABS: HEMOGLOBIN 8.4 g/dL (14.0-18.0); MCH 29.4 PG (27-31); MCHC 33.6 g/dL (33-37); MCV 87.4 FL (81-99); MPV 11.5 FL (7.4-10.4); RBC 2.86 XMIL (4.7-6.1); RDW 12.8 % (11.5-14.5); WBC 9.25 X1000 (4.8-10.8)
[2019-05-20 07:10] LABS: ALBUMIN 4.4 g/dL (3.5-5.0); CALCIUM 8.8 mg/dL (8.8-10.2); CREATININE 4.2 mg/dL (0.7-1.2); POTASSIUM 4.7 mmol/L (3.5-5.1)
[2019-05-20] MEDS: REGLAN PO SCH ×3 (07:39→17:29)
[2019-05-20] MEDS: HUMULIN 70/30 SUBQ SCH (07:39)
[2019-05-20] MEDS: HUMULIN R SUBQ SCH ×3 (07:39→16:40)
[2019-05-20] MEDS: COREG PO SCH ×2 (09:11→20:00)
[2019-05-20] MEDS: BIDIL PO SCH ×3 (09:11→17:29)
[2019-05-20] MEDS: DITROPAN PO SCH ×2 (09:11→20:08)
[2019-05-20] MEDS: PROTONIX PO SCH ×2 (09:11→20:09)
--- NOTE | 2019-05-20 13:17 | NEPHROLOGY PROGRESS NOTE ---
DATE: 05/20/2019 SUBJECTIVE: He is lying flat in bed. No complaints. No shortness of breath, nausea or vomiting. OBJECTIVE: Vital Signs: Blood pressure 143/67, heart rate 76, respirations 19, temperature 99.4 degrees. General: No acute distress. Skin: Warm and dry. Conjunctivae are pink. Neck: Neck veins are still distended. Heart: Regular with a gallop. Lungs: Equal. No crackles or wheezes. Abdomen: Soft, nontender. Normal bowel sounds. Extremities: Trace to 1+ edema around the hips only. IMPRESSION AND PLAN: 1. Chronic kidney disease 5D. Presumed. 2. Cardiorenal syndrome. Urine output is negligible. We will continue dialysis today. If he is ready for discharge then he can come to dialysis at the hospital Saturday, and Saturday. That has been arranged. cc: Delvin Pardo MD
--- NOTE | 2019-05-20 14:23 | PROGRESS NOTE ---
DATE: 05/20/2019 SUBJECTIVE: He is sitting up in bed. No major complaints. OBJECTIVE: Blood pressure is 119/52, heart rate 68, respiratory rate 14, temperature was 98.5 degrees. Cardiovascular: Regular rate and rhythm. Pulmonary: Bilateral breath sounds clear to auscultation. GI: Soft, nontender, nondistended. Bowel sounds were positive. Hemoglobin and hematocrit are 8 and 25, white count 9, platelets 227,000. BUN and creatinine of 72 and 4.2, PROBLEM LIST: Chronic renal failure, now end-stage renal. I think we could probably discharge today and have him come back for dialysis tomorrow. cc: Esdras Hurtado MD [facility]
[2019-05-20 19:28] VITALS: BP 137/74
[2019-05-20] MEDS: FLOMAX PO SCH (20:09)
--- NOTE | 2019-05-21 11:51 | DISCHARGE SUMMARY ---
ADMISSION DATE: 04/24/2019 DISCHARGE DATE: 05/20/2019 PRIMARY CARE PROVIDER: None. PERTINENT PROCEDURES: 1. Head and cervical spine CT: Negative exam. 2. Maxillofacial CT: Negative exam. 3. Chest x-ray: Bilateral interstitial and airspace opacities, likely representing pulmonary edema. 4. Echocardiogram: EF of 15% to 20% with global hypokinesis. 5. Chest CT: Significant pericardial effusion. Small right and moderate left effusion. A simple fluid density. Significant central infiltrates compatible with pulmonary edema. Healing left-sided rib fractures. 6. Renal ultrasound: Severely distended urinary bladder. Consider placing Man catheter. 7. Right venous Doppler: No superficial thrombosis seen. 8. Abdominal ultrasound: Trace ascites. 9. EGD just showed copious amounts of retained food, suggestive of gastroparesis. Colonoscopy normal. 10. Followup EGD showed a small amount of residual food. Again, suspect some level of gastroparesis. Gastric emptying study showed marked delay. 11. Right IJ tunneled hemodialysis catheter placement by Dr. Benjy Gramajo. DISCHARGE DIAGNOSES: 1. [place]ascara secondary to systolic heart failure and cardiorenal syndrome, improved with hemodialysis. 2. Dyspnea secondary to pulmonary edema and superimposed pneumonia, resolved. 3. Severe hypertension, now controlled. 4. Diabetes mellitus, controlled. 5. Initial hypoglycemic, resolved. 6. Normocytic anemia, hemodynamically stable. Hemoglobin and hematocrit stable. 7. Hypoalbuminemia, improved with nutritional status. 8. Cardiorenal syndrome. 9. Chronic kidney disease stage 5. The patient has had a tunneled hemodialysis catheter placed by Dr. Gramajo, and he will come to the hospital to receive his hemodialysis on Saturday, , Saturday. 10. Gastrointestinal bleed, resolved. 11. Diabetic gastroparesis, nausea, and vomiting are now under control. Continue with supportive care. HOSPITAL COURSE: Briefly, Mr. Holder is a 34-year-old [place] gentleman who was initially admitted on 04/24/2019 for cough, shortness of breath, and hypoglycemia. He was ultimately found to have congestive heart failure, systolic, with an EF of 15% to 20%, as well as cardiorenal syndrome. Initially, there was some obstruction in his urinary bladder, without any hydronephrosis, so a Man catheter was placed, and he was placed on and off Lasix and inotropes. Unfortunately, over Mr. Holder's prolonged hospital course, his renal function continued to deteriorate, as well as his urine output, and he was initiated on hemodialysis Saturday, , Saturday under the direction of Dr. Pardo. Throughout his hospital course, he also suffered a GI bleed, and was found to have diabetic gastroparesis, for which he was evaluated by GI and underwent an EGD, colonoscopy, and gastric emptying study. He was closely watched by Cardiology as well. His shortness of breath has improved. He has no more complaints of nausea and vomiting. His urine output is negligible. His blood pressures and anemia are stable, and he will be discharged back home today. DISCHARGE VITAL SIGNS: Temperature 98.5 degrees, heart rate 68, respirations 14, blood pressure 119/52, O2 is 94% on room air. DISCHARGE DIET: GI soft, ADA, Nepro shakes along with each meal. DISCHARGE MEDICATIONS: 1. Flomax 0.4 mg p.o. at bedtime. 2. BiDil 2 each p.o. t.i.d. 3. Coreg 25 mg p.o. every 12 hours. 4. Humalog 70/30, 10 units subcutaneously ACB. 5. Protonix 40 mg p.o. b.i.d. 6. Tums extra-strength 750 mg p.o. t.i.d. FOLLOWUP: Mr. Holder is being discharged back home with his family. He is to continue on his regular scheduled hemodialysis on Saturday, , Saturday. He is to take all medications as prescribed. He is to follow up with any subspecialties as educated, and he can return to the ED or call 911 for any worsening of symptoms. Dictated by EMILE Jaramillo for Esdras Hurtado MD cc: Esdras Hurtado MD [facility]
== END 2019-05-20 20:00 | disposition home or self-care (01) | DRG 291 ==
LOC: ED 07:21 → SUATTDRO 17:33 → 2N 17:33 → ICU 04-29 11:05 → 2N 05-02 11:06
PROVIDERS: ATTEND Internal Medicine